=== PATIENT | male | born 1940 | race Caucasian/White ===

== ENCOUNTER 2016-06-30 12:16 | Emergency (ER) | payer MEDICARE ==
[~2016-06-30 12:16] MED LIST: ALBU2.5V13 NEB; AMIO200T2 PO; ASPI325T11 PO; BECL8.7A6 IH; CARV3.122 PO; CLOP75TA PO; FURO20TA3 PO; POTA20TA82 PO; POTA500T5 PO; POTA99TA4 PO; PRED-220 PO; PROAIR HFA8.5 GM INH; SIMV20TA3 PO; TAMS0.4C2 PO; TIOT18CA IH
--- NOTE | 2016-06-30 13:04 | EKG ---
[facility] [address] [place] [address] Test Date: 2016-06-30 Test Time: 12:59:42 Pat Name: SOFIA REAGAN Department: Room: Gender: M Chief Mate: : 1940 Requested By: RACHEL CULP Order Number: [id number] Reading MD: Kathryn Pantoja Measurements Intervals Gray Rate: 60 P: 17 IN: 216 QRS: -83 QRSD: 146 T: 108 QT: 540 QTc: 545 Interpretive Statements SINUS RHYTHM LEFT ATRIAL ABNORMALITY ABNORMAL LEFT AXIS DEVIATION NON SPECIFIC INTRAVENTRICULAR BLOCK RVH WITH REPOLARIZATION ABNORMALITY QRS(T) CONTOUR ABNORMALITY CONSISTENT WITH ANTERIOR INFARCT AGE UNDETERMINED CONSISTENT WITH INFEROLATERAL INFARCT ABNORMAL ECG Electronically Signed On 07-01-2016 9:49:55 SEXUAL ASSAULT RESPONSE COORDINATOR by Kathryn Pantoja
[2016-06-30 13:12] LABS: BASO # 0.1 x10^3/uL (0.0-0.2); BASO % 1 % (0-3); EOS % 1 % (0-3); HEMATOCRIT 34.8 % (39.0-53.0); HEMOGLOBIN 12.1 g/dL (13.0-17.5); LYMPH # 2.2 x10^3/uL (1.0-4.8); LYMPH % 23 % (24-48); MEAN CORPUSCULAR HEMOGLOBIN 32 pg (25-35); MEAN CORPUSCULAR HGB CONC 35 g/dL (31-37); MEAN CORPUSCULAR VOLUME 92 fL (79-100); MONO % 9 % (0-9); NEUT % 67 % (31-73); PLATELET COUNT 237 x10^3/uL (140-400); RED CELL DISTRIBUTION WIDTH 13.8 % (11.5-14.5); WHITE BLOOD COUNT 9.8 x10^3/uL (4.0-11.0)
[2016-06-30 13:23] LABS: CALCIUM 8.8 mg/dL (8.5-10.1); CREATININE 1.2 mg/dL (0.7-1.3); POTASSIUM 3.1 mmol/L (3.5-5.1)
[2016-06-30 13:30] LABS: ALBUMIN 3.7 g/dL (3.4-5.0); DIRECT BILIRUBIN 0.2 mg/dL (0.0-0.2); TOTAL BILIRUBIN 0.7 mg/dL (0.2-1.0); TOTAL PROTEIN 6.6 g/dL (6.4-8.2)
[2016-06-30] MEDS ORDERED: INSULIN REGULAR 100 UNIT/ML 10ML VIAL. IV ONE (13:30)
[2016-06-30 14:21] LABS: BILIRUBIN,URINE NEGATIVE (NEG); GLUCOSE,URINE NEGATIVE (NEG); NITRITE,URINE NEGATIVE (NEG); PH,URINE 7.5; PROTEIN,URINE NEGATIVE (NEG-TRACE); UROBILINOGEN,URINE 0.2 mg/dL (0.2 mg/dL)
[2016-06-30 14:32] LABS: BACTERIA,URINE 0 /HPF (0-FEW); RBC,URINE 0 /HPF (0-2); WBC,URINE 0 /HPF (0-4)
[2016-06-30] MEDS ORDERED: CONTRAST GIVEN MC PRN (15:45)
[2016-06-30] MEDS ORDERED: IOHEXOL 300 MG/ML 75 ML VIAL IV ONE (15:45)
[2016-06-30 16:34] VITALS: BP 117/75
--- NOTE | 2016-06-30 16:51 | RAD ---
Indication abdominal pain. Diarrhea. Symptoms reportedly not acute. Axial images through the abdomen and pelvis were obtained. 75 cc of Omnipaque 300 was administered. No similar imaging is available. An acute finding in either lung base is not seen. There is some pleural calcification bilaterally suggesting prior asbestos exposure. There is generalized cardiomegaly. There is a small hiatus hernia. The liver and spleen appear unremarkable. The gallbladder appears grossly normal. The pancreas appears unremarkable. There are no adrenal masses. There are small low-density masses seen associated with the kidneys most compatible with cysts. An acute finding in the abdomen is not apparent. In the pelvis there are multiple diverticula seen associated with the large bowel. These are most numerous in the colon. There is some slight stranding surrounding the colon at the junction of the descending and sigmoid colon extending over approximately a 6 cm segment. Superimposed mild diverticulitis in this area is not excluded. An underlying mass in the large bowel is not seen but if colonoscopy has not been recently performed this should be considered. A discrete abscess amenable to drainage is not seen. The prostate is moderately enlarged. There is some mild diffuse thickening of the urinary bladder wall. This suggests superimposed chronic inflammation or, somewhat more likely given findings associated with the prostate, chronic outlet obstructive process. There are degenerative changes in the lumbar spine. IMPRESSION: Moderately extensive diverticulosis. Mild superimposed diverticulitis in the left colon not excluded. If colonoscopy has not been recently performed this should be considered Renal cysts. Chronic musculoskeletal changes. Mild to moderate enlargement of the prostate. Diffuse, mild, urinary bladder thickening suggesting chronic inflammation or chronic outlet obstructive process Scattered areas of pleural calcification suggesting prior asbestos exposure
[2016-06-30] MEDS ORDERED: CIPR500T PO (17:04)
[2016-06-30] MEDS ORDERED: HYDR-2666 PO (17:04)
[2016-06-30] MEDS ORDERED: METR500T PO (17:04)
--- NOTE | 2016-06-30 17:05 | PHYS DOC ---
Past Medical History Past Medical History: CAD, CHF, COPD, Pneumonia, Stroke Additional Past Medical Histor: PACEMAKER (3 YEARS AGO), COPD, OXYGEN DURING SLEEPING (2 LITERS) Past Surgical History: Coronary Bypass Surgery, Other Additional Past Surgical Histo: PACEMAKER WITH DEFIB, (7) STENTS, SEVERAL COLONOSCOPY'S Alcohol Use: Occasionally Drug Use: None Adult General Chief Complaint Chief Complaint: ABDOMINAL PAIN HPI HPI 76-year-old male presenting to the emergency Department with intermittent diarrhea for approximately 3 days. He describes the diarrhea is watery. He has had about three bowel movements per day. It is soft. He also reports taking laxatives. He reports mild swelling of the abdomen. Otherwise he denies abdominal pain. He denies nausea vomiting fevers or chills. He denies chest pain or shortness of breath. location gi tract. duration intermittent. no specific timing. No alleviating or exacerbating factors were present. Review of Systems Review of Systems review of systems is negative for chest pain abdominal pain fevers chills or nausea. All other review systems is negative. Current Medications Current Medications Current Medications Medications (Trade) Dose Ordered Sig/Ave Start Time Stop Time Status Last Admin Dose Admin Info (Do NOT chart on this entry -- for MONITORING) 1 each PRN DAILY PRN 06/30/16 15:45 06/30/16 17:18 DC Insulin Human Regular (Novolin R Vial) 10 unit 1X ONCE 06/30/16 13:30 06/30/16 13:37 DC Iohexol (Omnipaque 300 Mg/ml) 75 ml 1X ONCE 06/30/16 15:45 06/30/16 15:46 DC 06/30/16 16:03 75 ML Allergies Allergies Allergies Coded Allergies Type Severity Reaction Last Updated Verified No Known Drug Allergies 03/06/15 No Physical Exam Physical Exam Constitutional: Well developed, well nourished, no acute distress, non-toxic appearance. HENT: Normocephalic, atraumatic, bilateral external ears normal, oropharynx moist, no oral exudates, nose normal. [] Eyes: PERRLA, EOMI, conjunctiva normal, no discharge. Neck: Normal range of motion, no tenderness, supple, no stridor. [] Cardiovascular:Heart rate regular rhythm, no murmur [] Lungs & Thorax: Bilateral breath sounds clear to auscultation Abdomen: abdomen is soft mildly distended. Not tympanic to percussion. Nontender to palpation. Negative McBurney's point. Negative Rivera sign. Skin: Warm, dry, no erythema, no rash. [] Back: No tenderness, no CVA tenderness. Extremities: No tenderness, no cyanosis, no clubbing, ROM intact, no edema. [] Neurologic: Alert and oriented X 3, normal motor function, normal sensory function, no focal deficits noted. Psychologic: Affect normal, judgement normal, mood normal. [] Current Patient Data Vital Signs Vital Signs Date Time Temp Pulse Resp B/P Pulse Ox O2 Delivery O2 Flow Rate FiO2 06/30/16 16:34 60 16 117/75 98 Room Air 06/30/16 12:28 98.0 98.0 Lab Values Laboratory Tests Test 06/30/16 12:45 06/30/16 14:04 White Blood Count 9.8x10^3/uL (4.0-11.0) Red Blood Count 3.80x10^6/uL (4.30-5.70) L Hemoglobin 12.1g/dL (13.0-17.5) L Hematocrit 34.8% (39.0-53.0) L Mean Corpuscular Volume 92fL (79-100) Mean Corpuscular Hemoglobin 32pg (25-35) Mean Corpuscular Hemoglobin Concent 35g/dL (31-37) Red Cell Distribution Width 13.8% (11.5-14.5) Platelet Count 237x10^3/uL (140-400) Neutrophils (%) (Auto) 67% (31-73) Lymphocytes (%) (Auto) 23% (24-48) L Monocytes (%) (Auto) 9% (0-9) Eosinophils (%) (Auto) 1% (0-3) Basophils (%) (Auto) 1% (0-3) Neutrophils # (Auto) 6.6x10^3uL (1.8-7.7) Lymphocytes # (Auto) 2.2x10^3/uL (1.0-4.8) Monocytes # (Auto) 0.8x10^3/uL (0.0-1.1) Eosinophils # (Auto) 0.1x10^3/uL (0.0-0.7) Basophils # (Auto) 0.1x10^3/uL (0.0-0.2) Sodium Level 131mmol/L (136-145) L Potassium Level 3.1mmol/L (3.5-5.1) L Chloride Level 93mmol/L (98-107) L Carbon Dioxide Level 27mmol/L (21-32) Anion Gap 11 (6-14) Blood Urea Nitrogen 12mg/dL (8-26) Creatinine 1.2mg/dL (0.7-1.3) Estimated GFR (Cockcroft-Gault) 59.0 Glucose Level 121mg/dL (70-99) H Calcium Level 8.8mg/dL (8.5-10.1) Total Bilirubin 0.7mg/dL (0.2-1.0) Direct Bilirubin 0.2mg/dL (0.0-0.2) Aspartate Amino Transferase (AST) 22U/L (15-37) Alanine Aminotransferase (ALT) 29U/L (16-63) Alkaline Phosphatase 64U/L (46-116) Troponin I Quantitative 0.030ng/mL (0.000-0.055) SG-Bsq-O-Type Natriuretic Peptide 3040pg/mL (0-449) H Total Protein 6.6g/dL (6.4-8.2) Albumin 3.7g/dL (3.4-5.0) Lipase 160U/L (73-393) Urine Collection Type Unknown Urine Color Yellow Urine Clarity Clear Urine pH 7.5 Urine Specific [place] 1.010 Urine Protein Negativemg/dL (NEG-TRACE) Urine Glucose (UA) Negativemg/dL (NEG) Urine Ketones (Stick) Negativemg/dL (NEG) Urine Blood Negative (NEG) Urine Nitrite Negative (NEG) Urine Bilirubin Negative (NEG) Urine Urobilinogen Dipstick 0.2mg/dL (0.2 mg/dL) Urine Leukocyte Esterase Negative (NEG) Urine RBC 0/HPF (0-2) Urine WBC 0/HPF (0-4) Urine Squamous Epithelial Cells None/LPF Urine Bacteria 0/HPF (0-FEW) Urine Hyaline Casts Many/HPF Urine Mucus Slight/LPF Laboratory Tests 06/30/16 12:45 Laboratory Tests 06/30/16 12:45 EKG EKG [] Radiology/Procedures Radiology/Procedures []CT of the abdomen and pelvis ordered Course & Med Decision Making Course & Med Decision Making Pertinent Labs and Imaging studies reviewed. (See chart for details) []76-year-old male presenting to the emergency Department with intermittent diarrhea over the past few days. On evaluation the patient's vital signs were unremarkable. Physical exam showed mild/minimal distention without any tenderness. Labs are obtained which are normal CBC with a mild anemia. Chemistry panel showed low potassium likely secondary to his diarrhea. Otherwise the patient CT of the abdomen and pelvis showed concern for possible acute diverticulitis. There were other chronic findings such as possible espestos exposure which I referred him to his primary care physician over the next 3 to 4 days for evaluation for this. He was treated with oral antibiotics and pain medication. His potassium was replaced orally over the next few days. He was to follow-up with his primary care physician within six days. Dragon Disclaimer Dragon Disclaimer This electronic medical record was generated, in whole or in part, using a voice recognition dictation system. Departure Departure Impression: Primary Impression: Diverticulitis Additional Impression: Hypokalemia Disposition: 01 HOME, SELF-CARE Condition: STABLE Referrals: DIANA ELIAS MD (PCP) Patient Instructions: Diverticulitis, [id number] Additional Instructions: Thank you for allowing us to participate in your care today. Followup with your primary care physician in 3 days if your symptoms do not improve. If you do not have a primary care provider you can ask for a list of our primary care providers. Return to the emergency department you have any new or concerning findings. This should be evaluated by the primary care physician and any necessary consulting services for continued management within a few days after discharge. Return to emergency room if you have any new or concerning symptoms including but not limited to fever, chills, nausea, vomiting, intractable pain, any new rashes, chest pain, shortness of air, uncontrolled bleeding, difficulty breathing, and/or vision loss. You may have been prescribed medication that can change in your level of thinking and ability to operate machinery. These medications include hydrocodone and Ativan. Also, Benadryl has been known to do this as well. Be sure to check with your pharmacist and ask if the medications you've prescribed can affect your level of consciousness. I recommend not operating heavy machinery or driving while on medication such as these. Scripts Potassium Chloride 10 Meq Capsule.er10 Meq PO DAILY 5 Days Prov:RACHEL CULP MD 06/30/16 Hydrocodone Bit/Acetaminophen (Hydrocodone-Apap 5-325 )1 Each Tablet1 Tab PO PRN Q6HRS PRN PAIN #15 TAB Be careful as this medication may cause you to be drowsy or tired. Do not drive on this medication. Prov:RACHEL CULP MD 06/30/16 Metronidazole (Flagyl)500 Mg Vnubtw209 Mg PO TID 10 Days Prov:RACHEL CULP MD 06/30/16 Ciprofloxacin Hcl 500 Mg Tablet1 Tab PO BID #20 TAB Prov:RACHEL CULP MD 06/30/16 Problem Qualifiers RACHEL CULP MD Jun 30, 2016 17:05
[2016-06-30] MEDS ORDERED: POTA10CA PO (17:06)
== END 2016-06-30 17:08 | disposition home or self-care (01) ==
LOC: ER 12:16
DX: K57.92 Diverticulitis of intestine, part unspecified, without perforation or abscess without bleeding (principal); E87.6 Hypokalemia; I50.9 Heart failure, unspecified; I25.10 Atherosclerotic heart disease of native coronary artery without angina pectoris; J44.9 Chronic obstructive pulmonary disease, unspecified; Z86.73 Personal history of transient ischemic attack (TIA), and cerebral infarction without residual deficits; Z95.1 Presence of aortocoronary bypass graft; Z95.5 Presence of coronary angioplasty implant and graft; Z95.810 Presence of automatic (implantable) cardiac defibrillator
CPT/HCPCS: 36415; 74177; 80048; 80076; 81001; 83690; 83880; 84484; 85027; 93005; 99285; Q9967

== ENCOUNTER 2016-08-06 19:14 | Emergency (ER) | payer MEDICARE ==
[~2016-08-06] VITALS: Ht 188 cm; Wt 79.4 kg
[~2016-08-06 19:14] MED LIST changes: -ALBU2.5V13 NEB; +ALBU2.5V14 NEB; +CIPR500T PO; +HYDR-2666 PO; +METR500T PO; +POTA10CA PO
[2016-08-06] MEDS ORDERED: HYDROCODONE/APAP 5/325MG TABLET. PO ONE (20:00)
--- NOTE | 2016-08-06 20:30 | PHYS DOC ---
Past Medical History Past Medical History: Anxiety, CAD, CHF, COPD, CVA, Pneumonia, Stroke, Other Additional Past Medical Histor: OXYGEN DURING SLEEPING (2 L) Past Surgical History: Angioplasty, Coronary Bypass Surgery, Pacemaker, Other Additional Past Surgical Histo: PACEMAKER WITH DEFIB, (7) STENTS, SEVERAL COLONOSCOPY'S,BACK,SHOULDER Alcohol Use: Occasionally Drug Use: None Adult General Chief Complaint Chief Complaint: RIB PAIN after a fall HPI HPI Patient is a 76 year old male with a history of COPD brought to the ED by his son. The patient had a fall yesterday where he slipped on gravel on his driveway. He fell onto his right side, injuring his right shoulder and the right side of his chest wall. Since then he has had a lot of pain, hurts to take a deep breath, really hurts to breathe at all, hurts to cough. He also recently has been on prednisone and antibiotics for a productive cough. He had trouble last night, couldn't get comfortable, had to sit up in the chair to sleep. He does wear oxygen and CPAP at night. PCP Dr. Ledbetter Review of Systems Review of Systems Constitutional: Denies fever or chills [] Eyes: Denies change in visual acuity, redness, or eye pain [] HENT: Denies nasal congestion or sore throat [] Respiratory: Positive for cough and shortness of breath as in history of present illness Cardiovascular: Denies cardiac sounding chest pain GI: Denies abdominal pain, nausea, vomiting, bloody stools or diarrhea [] : Denies dysuria or hematuria [] Musculoskeletal: Right shoulder pain, right chest wall pain Integument: Denies rash or skin lesions [] Neurologic: Denies headache, focal weakness or sensory changes [] Current Medications Current Medications Current Medications Medications (Trade) Dose Ordered Sig/Ave Start Time Stop Time Status Last Admin Dose Admin Acetaminophen/ Hydrocodone Bitart (Lortab 5/325) 1 tab 1X ONCE 08/06/16 20:00 08/06/16 20:01 DC 08/06/16 19:59 1 TAB Allergies Allergies Allergies Coded Allergies Type Severity Reaction Last Updated Verified No Known Drug Allergies 03/06/15 No Physical Exam Physical Exam Constitutional: Well developed, well nourished, no acute distress, non-toxic appearance. Alert, mentating normally. Pulse ox on room air 95%. Talking in full sentences without dyspnea. HENT: Normocephalic, atraumatic, bilateral external ears normal, nose normal. [] Eyes: conjunctiva normal, no discharge. [] Neck: Normal range of motion, no stridor. [] Cardiovascular:Heart rate regular rhythm, no murmur , not tachycardic Lungs & Thorax: Breath sounds decreased throughout with no wheezes, rales, or rhonchi. Right lateral chest wall tender in the mid axillary line, no bruising, no crepitance, no deformity. Skin: Warm, dry, no erythema, no rash. [] Back: No tenderness, no CVA tenderness. [] Extremities: Right shoulder has a old surgical scar anteriorly. No acute deformity, mild generalized tenderness to palpation, no point tenderness, no crepitance Neurologic: Alert and oriented X 3, normal motor function, normal sensory function, no focal deficits noted. [] Current Patient Data Vital Signs Vital Signs Date Time Temp Pulse Resp B/P Pulse Ox O2 Delivery O2 Flow Rate FiO2 08/06/16 22:30 62 25 155/80 94 Room Air 08/06/16 19:35 98.1 98.1 EKG EKG [] Radiology/Procedures Radiology/Procedures Two-view chest x-ray read by me and compared to previous two-view chest x-ray dated 07/18/2016 The inspiratory effort is not as full, there may be a small right pleural effusion, and I believe there is a fracture of the 10th rib laterally. There is also some type of a soft tissue density in the right axilla. [] Chest CT demonstrated the following: There is a displaced fracture of the lateral 5th 6th and 7th ribs and is place right fracture of the posterior right 8th rib and nondisplaced fractures of the posterior right 9th and 10th ribs. There are patchy densities along the fissure on the right which was not present previously. There is patchy ground-glass opacity in the right middle lobe. There is no mediastinal or hilar lymphadenopathy. There has been previous median sternotomy. There is a left-sided pacemaker. There is calcified pleural plaque on the left. Course & Med Decision Making Course & Med Decision Making Pertinent Labs and Imaging studies reviewed. (See chart for details) 76-year-old male who does have COPD and recently has had a productive cough, is taking prednisone and antibiotics for that, had a mechanical fall yesterday and landed on his right side. He presents with right side pain that is worse when he exited deep breath or coughs. Also concerned that this morning when he coughed he had a little streak of blood in his sputum. I advised the patient we will give him a pain pill and get a chest x-ray, he is agreeable to that plan. Chest x-ray concerns me for possible pleural effusion and possible atelectasis. Neither of these would be surprising. With his level of chronic lung disease, I' d like to know some more about his possible lung injuries so ordered a CT scan of the chest. I assumed care of this patient from Dr. Yu. His chest CT does demonstrate evidence of rib fractures and pulmonary contusion. I'll be sent him home as instructed with pain medication and incentive spirometer with close follow-up with his primary care doctor next several days and strict instruction return if he develops any worsening of his breathing or develops any fever. He is very agreeable with this plan and discharged without incident. [] Dragon Disclaimer Dragon Disclaimer This electronic medical record was generated, in whole or in part, using a voice recognition dictation system. Departure Departure Impression: Primary Impression: Right rib fracture Additional Impression: COPD exacerbation Disposition: 01 HOME, SELF-CARE Condition: STABLE Referrals: DIANA ELIAS MD (PCP) Patient Instructions: Rib Fracture, [id number] Additional Instructions: As we discussed, do not wear a rib binder or Hi wraps because it keeps you from being able to take a good deep breath. You may briefly apply a back brace or hold a pillow on your side to splint the broken ribs when you cough. Use ice to the areas of pain 15-20 minutes out of every 1-2 hours. If needed, take pain pills around the clock for pain, however this will be constipating, take a laxative also. Do not take Xanax with pain pills, they both decrease your breathing. Take breathing treatments every 4 hours to encourage coughing up phlegm and help keep your lungs open. Make an effort to take good deep breaths. If you run a fever, become more short of breath, or need better pain control, return for admission to the hospital. Scripts Hydrocodone/Apap 5-325 (Mode 5-325 Tablet)1 Each Tablet1-2 Tab PO Q4-6HRS #20 TAB As needed for pain of broken ribs Prov:ANILA YU MD 08/06/16 Problem Qualifiers ANILA YU MD Aug 06, 2016 20:30 KENDRA NICOLAS DO Aug 06, 2016 23:03
[2016-08-06] MEDS ORDERED: HYDR-971 PO (21:29)
--- NOTE | 2016-08-06 21:50 | RAD ---
PROCEDURE CT chest without contrast HISTORY Right-sided rib and back pain status post fall yesterday TECHNIQUE Axial helical images of the chest were obtained without contrast and axial coronal and sagittal reconstruction was performed. COMPARISON July 18, 2016 FINDINGS There is a displaced fracture of the lateral 5th 6th and 7th ribs and is place right fracture of the posterior right 8th rib and nondisplaced fractures of the posterior right 9th and 10th ribs. There are patchy densities along the fissure on the right which was not present previously. There is patchy ground-glass opacity in the right middle lobe. There is no mediastinal or hilar lymphadenopathy. There has been previous median sternotomy. There is a left-sided pacemaker. There is calcified pleural plaque on the left. IMPRESSION One. Multiple right-sided rib fractures. No pneumothorax. Two. Right-sided infiltrates could be discoid atelectasis or pulmonary contusion. 3. There is patchy nodular opacity along the major fissure on the right. Recommend a three-month followup CT of the chest without contrast to exclude possible pulmonary nodule. Electronically signed by: Pavan Mendez MD (Aug 06, 2016 21:49:47)
[2016-08-06 22:30] VITALS: BP 155/80
--- NOTE | 2016-08-07 08:14 | RAD ---
Chest, 2 views, 08/06/2016: History: Fall, chest pain Comparison is made to a study from 07/18/2016. There has been a previous median sternotomy. A left-sided transvenous pacemaker remains in place with 3 leads extending into the heart. The heart is enlarged. There is calcific plaquing and tortuosity of the thoracic aorta. The pulmonary vascularity is normal. There are bilateral chest opacities. Some of these have been present on previous studies and are due to fibrocalcific pleural/parenchymal scarring, predominantly on the left. There is mild superimposed acute infiltrate in the right midlung. There is minimal linear atelectasis in the left lateral costophrenic angle. There is no evidence of pneumothorax or definite pleural fluid. The bony structures are demineralized. Moderate degenerative changes are evident in the spine. At least 2 rib fractures are seen laterally on the lower right. IMPRESSION: 1. Cardiomegaly and aortic atherosclerosis. 2. Mild right mid lung infiltrates superimposed upon fibrocalcific pleural/parenchymal scarring. 3. New right lower rib fractures
== END 2016-08-06 22:30 | disposition home or self-care (01) ==
LOC: ER 19:14
DX: S22.41XA Multiple fractures of ribs, right side, initial encounter for closed fracture (principal); J44.1 Chronic obstructive pulmonary disease with (acute) exacerbation; I25.10 Atherosclerotic heart disease of native coronary artery without angina pectoris; I50.9 Heart failure, unspecified; J44.9 Chronic obstructive pulmonary disease, unspecified; Z86.73 Personal history of transient ischemic attack (TIA), and cerebral infarction without residual deficits; Z95.0 Presence of cardiac pacemaker; Z98.61 Coronary angioplasty status; W01.0XXA Fall on same level from slipping, tripping and stumbling without subsequent striking against object, initial encounter; Y93.89 Activity, other specified; Y92.89 Other specified places as the place of occurrence of the external cause; Y99.8 Other external cause status
CPT/HCPCS: 71020; 71250; 99284-25

== ENCOUNTER 2016-08-22 14:32 | Inpatient (IN) | payer MEDICARE ==
[~2016-08-22] VITALS: Ht 185.4 cm; Wt 78.1 kg
[~2016-08-22 14:32] MED LIST changes: +HYDR-971 PO
[2016-08-22] MEDS ORDERED: IPRATRPIUM/ALBUTEROL 0.5/2.5MG 3 ML NEBU. NEB ONE (15:00)
--- NOTE | 2016-08-22 15:27 | EKG ---
[facility] [address] [place] [address] Test Date: 2016-08-22 Test Time: 15:23:23 Pat Name: SOFIA REAGAN Department: Room: Gender: M Photography Sales Associate: : 1940 Requested By: KENDRA NICOLAS Order Number: [id number] Reading MD: Measurements Intervals [place] Rate: 60 P: -88 MI: 126 QRS: -82 QRSD: 168 T: 91 QT: 546 QTc: 552 Interpretive Statements SINUS RHYTHM ABNORMAL LEFT AXIS DEVIATION NON SPECIFIC INTRAVENTRICULAR BLOCK RVH WITH REPOLARIZATION ABNORMALITY QRS(T) CONTOUR ABNORMALITY CONSISTENT WITH ANTERIOR INFARCT AGE UNDETERMINED CONSISTENT WITH INFEROLATERAL INFARCT POSSIBLY RECENT RI6.01 Unconfirmed report Compared to ECG 07/18/2016 12:05:54 Left-axis deviation now present Right ventricular hypertrophy now present Early repolarization now present Myocardial infarct finding now present
[2016-08-22 15:29] LABS: BASO % 1 % (0-3); EOS % 1 % (0-3); HEMATOCRIT 34.4 % (39.0-53.0); HEMOGLOBIN 11.8 g/dL (13.0-17.5); LYMPH # 1.6 x10^3/uL (1.0-4.8); LYMPH % 20 % (24-48); MEAN CORPUSCULAR HEMOGLOBIN 32 pg (25-35); MEAN CORPUSCULAR HGB CONC 34 g/dL (31-37); MEAN CORPUSCULAR VOLUME 93 fL (79-100); MONO % 10 % (0-9); NEUT % 68 % (31-73); PLATELET COUNT 235 x10^3/uL (140-400); RED CELL DISTRIBUTION WIDTH 13.5 % (11.5-14.5); WHITE BLOOD COUNT 8.3 x10^3/uL (4.0-11.0)
--- NOTE | 2016-08-22 15:30 | RAD ---
Portable chest, 08/22/2016: History: Shortness of breath Comparison is made to a study from 08/06/2016. There as been a previous median sternotomy. A left-sided transvenous pacemaker remains in place. The heart is enlarged. There is calcific plaquing of the aorta. Bilateral chest opacities due to fibrocalcific pleural-parenchymal scarring are again noted. No new pulmonary infiltrate is seen. There is no evidence of pleural fluid. IMPRESSION: 1. Mild cardiomegaly and aortic atherosclerosis. 2. Bilateral fibrocalcific pleural/parenchymal scarring. 3. No new abnormality is detected.
[2016-08-22 15:39] LABS: CALCIUM 8.7 mg/dL (8.5-10.1); CREATININE 0.9 mg/dL (0.7-1.3); GFR 82.3; POTASSIUM 3.3 mmol/L (3.5-5.1)
[2016-08-22] MEDS ORDERED: FENTANYL PF 100 MCG/2 ML VIAL. IV ONE (16:00)
--- NOTE | 2016-08-22 16:25 | RAD ---
EXAM: Right shoulder 3 views. HISTORY: Right shoulder pain after fall. COMPARISON: 03/03/2016. FINDINGS: Osteopenia is moderate to severe. This lowers sensitivity for nondisplaced fractures but none are seen. Small osteophytes indicate mild glenohumeral osteoarthritis. Acromioclavicular osteoarthritis is moderate to severe. Ossification in the region of the coracoclavicular ligament is consistent with a chronic ligamentous injury. An inferiorly directed acromial spur measures 4 mm. Acromioclavicular spurs measure 6 mm. There are displaced right eighth and ninth rib fractures. Median sternotomy changes and pacer/defibrillator leads are partially visualized. IMPRESSION: 1. No acute fractures at the shoulder. 2. 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 3. Prominent inferiorly directed acromioclavicular spurs. Correlate for impingement. 4. Displaced right eighth and ninth rib fractures.
[2016-08-22] MEDS ORDERED: ONDANSETRON PF 4 MG/2 ML VIAL. IV PRN (17:45)
--- NOTE | 2016-08-22 18:17 | PHYS DOC ---
Past Medical History Past Medical History: Anxiety, CAD, CHF, COPD, CVA, Pneumonia, Stroke, Other Additional Past Medical Histor: OXYGEN DURING SLEEPING (2 L) Past Surgical History: Angioplasty, Coronary Bypass Surgery, Pacemaker, Other Additional Past Surgical Histo: PACEMAKER WITH DEFIB, (7) STENTS, SEVERAL COLONOSCOPY'S,BACK,SHOULDER Alcohol Use: Occasionally Drug Use: None Adult General Chief Complaint Chief Complaint: WEAKNESS/GENERALIZED HPI HPI This is a 76-year-old male who presents several weeks after after having a traumatic fall on his right side which he fractured multiple ribs. He presents again today for worsening shortness of breath and significant right shoulder pain as well. Patient is still having significant right-sided rib pain. He has been using his incentive spirometer and taking his pain medication as needed. He has followed up as well with a primary care doctor but states his symptoms have not improved significantly. He states he has pains with deep breathing and he is still short of breath despite using breathing treatments at home. Patient does have history of significant COPD but does not require oxygen. He denies any significant cough or fever. Review of Systems Review of Systems Constitutional: Denies fever or chills [] Eyes: Denies change in visual acuity, redness, or eye pain [] HENT: Denies nasal congestion or sore throat [] Respiratory: Denies cough, has shortness of breath [] Cardiovascular: No additional information not addressed in HPI [] GI: Denies abdominal pain, nausea, vomiting, bloody stools or diarrhea [] : Denies dysuria or hematuria [] Musculoskeletal: Denies back pain or joint pain [] Integument: Denies rash or skin lesions [] Neurologic: Denies headache, focal weakness or sensory changes [] Endocrine: Denies polyuria or polydipsia [] Current Medications Current Medications Current Medications Medications (Trade) Dose Ordered Sig/Ave Start Time Stop Time Status Last Admin Dose Admin Albuterol/ Ipratropium (Duoneb) 3 ml 1X ONCE 08/22/16 15:00 08/22/16 15:01 DC 08/22/16 15:12 3 ML Allergies Allergies Allergies Coded Allergies Type Severity Reaction Last Updated Verified No Known Drug Allergies 03/06/15 No Physical Exam Physical Exam Constitutional: Well developed, well nourished, no acute distress, non-toxic appearance. [] HENT: Normocephalic, atraumatic, bilateral external ears normal, oropharynx moist, no oral exudates, nose normal. [] Eyes: PERRLA, EOMI, conjunctiva normal, no discharge. [] Neck: Normal range of motion, no tenderness, supple, no stridor. [] Cardiovascular:Heart rate regular rhythm, no murmur [] Lungs & Thorax: Bilateral breath sounds clear to auscultation [] Abdomen: Bowel sounds normal, soft, no tenderness, no masses, no pulsatile masses. [] Skin: Warm, dry, no erythema, no rash. [] Back: No tenderness, no CVA tenderness. [] Extremities: No tenderness, no cyanosis, no clubbing, ROM intact, no edema. [] Neurologic: Alert and oriented X 3, normal motor function, normal sensory function, no focal deficits noted. [] Psychologic: Affect normal, judgement normal, mood normal. [] Current Patient Data Vital Signs Vital Signs Date Time Temp Pulse Resp B/P Pulse Ox O2 Delivery O2 Flow Rate FiO2 08/22/16 15:30 84 38 110/66 96 08/22/16 15:15 Room Air 08/22/16 15:05 98.3 98.3 Lab Values Laboratory Tests Test 08/22/16 15:10 White Blood Count 8.3x10^3/uL (4.0-11.0) Red Blood Count 3.70x10^6/uL (4.30-5.70) L Hemoglobin 11.8g/dL (13.0-17.5) L Hematocrit 34.4% (39.0-53.0) L Mean Corpuscular Volume 93fL (79-100) Mean Corpuscular Hemoglobin 32pg (25-35) Mean Corpuscular Hemoglobin Concent 34g/dL (31-37) Red Cell Distribution Width 13.5% (11.5-14.5) Platelet Count 235x10^3/uL (140-400) Neutrophils (%) (Auto) 68% (31-73) Lymphocytes (%) (Auto) 20% (24-48) L Monocytes (%) (Auto) 10% (0-9) H Eosinophils (%) (Auto) 1% (0-3) Basophils (%) (Auto) 1% (0-3) Neutrophils # (Auto) 5.7x10^3uL (1.8-7.7) Lymphocytes # (Auto) 1.6x10^3/uL (1.0-4.8) Monocytes # (Auto) 0.8x10^3/uL (0.0-1.1) Eosinophils # (Auto) 0.1x10^3/uL (0.0-0.7) Basophils # (Auto) 0.0x10^3/uL (0.0-0.2) Sodium Level 127mmol/L (136-145) L Potassium Level 3.3mmol/L (3.5-5.1) L Chloride Level 86mmol/L (98-107) L Carbon Dioxide Level 32mmol/L (21-32) Anion Gap 9 (6-14) Blood Urea Nitrogen 13mg/dL (8-26) Creatinine 0.9mg/dL (0.7-1.3) Estimated GFR (Cockcroft-Gault) 82.3 Glucose Level 105mg/dL (70-99) H Calcium Level 8.7mg/dL (8.5-10.1) Troponin I Quantitative 0.030ng/mL (0.000-0.055) Laboratory Tests 08/22/16 15:10 Laboratory Tests 08/22/16 15:10 EKG EKG [] Radiology/Procedures Radiology/Procedures Right shoulder xray revealed the followin. No acute fractures at the shoulder. 2. 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 3. Prominent inferiorly directed acromioclavicular spurs. Correlate for impingement. 4. Displaced right eighth and ninth rib fractures. Chest xray reveals the following: Comparison is made to a study from 08/06/2016. There as been a previous median sternotomy. A left-sided transvenous pacemaker remains in place. The heart is enlarged. There is calcific plaquing of the aorta. Bilateral chest opacities due to fibrocalcific pleural-parenchymal scarring are again noted. No new pulmonary infiltrate is seen. There is no evidence of pleural fluid. Course & Med Decision Making Course & Med Decision Making Pertinent Labs and Imaging studies reviewed. (See chart for details) This 76-year-old male who significantly short of breath after having a troponin fall several weeks ago will be admitted to the hospital for likely COPD exacerbation and ongoing complications from his traumatic injuries. His chest film and right shoulder film did not reveal any new abnormalities today. His laboratory workup was unremarkable. He was given a breathing treatment and steroids on the department. I discussed the need to admit the patient with the hospitalist, Dr. Wright, who agreed to accept the patient with Dr. Moran is a consult as well. He was admitted without incident. Dragon Disclaimer Dragon Disclaimer This electronic medical record was generated, in whole or in part, using a voice recognition dictation system. Departure Departure Impression: Primary Impression: Right rib fracture Additional Impression: COPD exacerbation Disposition: ADMITTED INPATIENT Admitting Physician: Other Condition: STABLE Referrals: DIANA WRIGHT MD (PCP) Problem Qualifiers KENDRA NICOLAS DO Aug 22, 2016 18:17
[2016-08-22 18:25] VITALS: BP 119/67
[2016-08-22 18:26] VITALS: BP 119/67
[2016-08-22] MEDS ORDERED: methylPREDNISolone SOD SUCC PF 125 MG/2 ML VIAL. IV ONE (18:30)
[2016-08-22 19:00] VITALS: BP 115/67
[2016-08-22] MEDS: IPRATRPIUM/ALBUTEROL 0.5/2.5MG 3 ML NEBU. NEB SCH (19:55)
[2016-08-22] MEDS: HYDROCODONE/APAP 5/325MG TABLET. PO PRN (21:05)
[2016-08-22] MEDS: CARVEDILOL 3.125 MG TABLET PO SCH (21:18)
[2016-08-22] MEDS: SIMVASTATIN 20 MG TABLET PO SCH (22:43)
[2016-08-22 23:00] VITALS: BP 101/56
[2016-08-23 03:00] VITALS: BP 102/60
[2016-08-23 05:36] LABS: BASO % 0 % (0-3); EOS % 0 % (0-3); HEMATOCRIT 33.7 % (39.0-53.0); LYMPH # 0.5 x10^3/uL (1.0-4.8); LYMPH % 11 % (24-48); MEAN CORPUSCULAR HEMOGLOBIN 32 pg (25-35); MEAN CORPUSCULAR HGB CONC 36 g/dL (31-37); MEAN CORPUSCULAR VOLUME 90 fL (79-100); MONO % 1 % (0-9); NEUT % 88 % (31-73); PLATELET COUNT 233 x10^3/uL (140-400); RED BLOOD COUNT 3.75 x10^6/uL (4.30-5.70); RED CELL DISTRIBUTION WIDTH 13.6 % (11.5-14.5); WHITE BLOOD COUNT 4.7 x10^3/uL (4.0-11.0)
[2016-08-23] MEDS: CLOPIDOGREL BISULFATE 75 MG TABLET PO SCH (05:36)
[2016-08-23 05:52] LABS: CALCIUM 8.8 mg/dL (8.5-10.1); CREATININE 1.1 mg/dL (0.7-1.3); GFR 65.3
[2016-08-23 05:54] LABS: POTASSIUM 2.7 mmol/L (3.5-5.1)
[2016-08-23 07:00] VITALS: BP 118/75
[2016-08-23] MEDS: IPRATRPIUM/ALBUTEROL 0.5/2.5MG 3 ML NEBU. NEB SCH ×4 (07:39→20:34)
[2016-08-23] MEDS: TAMSULOSIN 0.4 MG CAP.ER.24H. PO SCH (08:09)
[2016-08-23] MEDS: FUROSEMIDE 20 MG TABLET PO SCH (08:09)
[2016-08-23] MEDS: ASPIRIN ENTERIC COATED 325 MG TABLET.DR. PO SCH (08:10)
[2016-08-23] MEDS: AMIODARONE HCL 200 MG TABLET PO SCH (08:10)
[2016-08-23] MEDS: POTASSIUM CHLORIDE 20 MEQ TABLET.ER. PO SCH ×3 (08:10→17:29)
[2016-08-23] MEDS: CARVEDILOL 3.125 MG TABLET PO SCH ×2 (08:10→17:29)
[2016-08-23] MEDS ORDERED: NON FORMULARY ITEM (Tiotropium Bromide (Spiriva) 2 INH) IH SCH (09:00)
[2016-08-23 10:05] LABS: PLT ESTIMATE ADEQUATE (ADEQUATE)
[2016-08-23 11:00] VITALS: BP 96/59
--- NOTE | 2016-08-23 11:01 | ACF ---
Admission Forms Criteria COPD Clinical Indications for Admission to Inpatient Care (Place 'X' for any and all applicable criteria): Admission is indicated for ANY ONE of the following (1)(2)(3): [X]I. Acute exacerbation by high-risk comorbidity (e.g., pneumonia, dysrhythmia, heart failure, pleural effusion, pneumothorax) or severe underlying COPD (e.g., steroid dependent) [ ]II. Inpatient admission required rather than observation care (see Chronic Obstructive Pulmonary Disease: Observation Care) because of ANY ONE of the following: [ ]a) New or pre-existing signs or symptoms of COPD (eg, dyspnea or Tachypnea at rest or with minimal activity) that persist despite outpatient and observation care treatment [ ]b) New-onset hypoxemia (room air SaO2 less than 90%, PO2 less than 60 mm Hg (8.0 kPa)) that persists despite outpatient and observation care treatment [ ]c) Worsening of pre-existing hypoxemia (eg, new or increased requirement for supplemental oxygen to maintain oxygenation at baseline level) that persists despite outpatient and observation care treatment, with oxygen treatment needs performable only in acute inpatient setting [ ]d) Hypercarbia (PCO2 greater than 40 mm Hg (5.3 kPa))-induced respiratory acidosis (pH less than 7.35) that persists despite outpatient and observation care treatment [ ]e) Supplemental oxygen or respiratory treatments for over 24 hours that are performable only in acute inpatient setting [ ]f) Chest tube placement with active evacuation (e.g., suction, drainage) (5) [ ]g) Other condition, treatment or monitoring requiring inpatient admission [ ]III. Planned invasive surgical or diagnostic procedures requiring acute- care hospitalization [ ]IV. Acute respiratory failure (e.g., uncompensated hypercarbia, severe hypoxemia) [ ]V. Severe comorbid condition (e.g., severe steroid myopathy, acute vertebral fracture) that has acutely worsened pulmonary function [ ]. Confusion state, lethargy, obtundation, stupor or coma Extended stay beyond goal length of stay may be needed for (31)(32): [ ]a ) Respiratory Failure. [ ]b) Severe or persisting hypoxemia or hypercarbia [ ]c) Severe or persistent dyspnea [ ]d) Comorbidities (e.g. chronic heart failure, atrial fibrillation with rapid response, pneumonia) [ ]e) Malnutrition The original [facility] content created by [facility] has been revised. The portions of the content which have been revised are identified through the use of italic text or in bold, and [facility] has neither reviewed nor approved the modified material. All other unmodified content is copyright [facility]. Please see references footnoted in the original [facility] edition 2016 Admission Criteria Met?: Yes KYLEIGH WAHL Aug 23, 2016 11:01
--- NOTE | 2016-08-23 13:36 | PDOC2 ---
CONSULT Date of Consult Date of Consult DATE: 08/23/16 TIME: 13:29 Reason for Consult Reason for Consult: Coronary artery disease Referring Physician Referring Physician: Dr. Wright Identification/Chief Complaint Chief Complaint A fall History of Present Illness Reason for Visit: This patient is a 76-year-old gentleman with a known history of coronary artery disease, and ischemic cardiomyopathy, COPD, that continues to smoke. He had a recent fall sustaining injury to the right shoulder as well as multiple rib fractures. He now comes in with further pain to the shoulder and a limited range of motion to that side as well as significant dyspnea and pain when he tries to take a deep breath. He has had previous episodes of CHF but at this time has no cardiac complaints, no edema, no angina, no palpitations. The patient has a pacemaker in place. Past Medical History Cardiovascular: CAD, CHF, HTN, [place], Other Pulmonary: COPD CENTRAL NERVOUS SYSTEM: CVA, TIA Psych: Anxiety, Depression Musculoskeletal: Osteoarthritis Renal/: Benign prostatic enlarg. Past Surgical History Past Surgical History: Pacemaker, CABG, Other Family History Family History: Cancer, Coronary Artery Disease Social History ALCOHOL: occassional Drugs: None Lives: Alone Domestic Violence: Neg Current Problem List Problem List Problems Medical Problems: (1) COPD exacerbation Status: Acute (2) Right rib fracture Status: Acute Current Medications Current Medications Current Medications Albuterol/ Ipratropium (Duoneb) 3 ml 1X ONCE NEB Last administered on 15:12; Start 08/22/16 at 15:00; Stop 08/22/16 at 15:01; Status DC Fentanyl Citrate (Fentanyl 2ml Vial) 50 mcg 1X ONCE IV Last administered on 16:00; Start 08/22/16 at 16:00; Stop 08/22/16 at 16:01; Status DC Ondansetron HCl (Zofran) 4 mg PRN Q8HRS PRN IV NAUSEA/VOMITING; Start 08/22/16 at 17:45; Stop 08/23/16 at 17:44 Albuterol/ Ipratropium (Duoneb) 3 ml RTQID NEB Last administered on 08/23/16 11:25; Start 08/22/16 at 20:00 Methylprednisolone Sodium Succinate (Solu-Medrol 125mg Vial) 125 mg 1X ONCE IV Last administered on 08/22/16 18:32; Start 08/22/16 at 18:30; Stop 08/22/16 at 18:31; Status DC Amiodarone HCl (Cordarone) 200 mg DAILY PO Last administered on 08/23/16 08:10 ; Start 08/23/16 at 09:00 Aspirin (Ecotrin) 325 mg DAILY08 PO Last administered on 08/23/16 08:10; Start 08/23/16 at 08:00 Carvedilol (Coreg) 3.125 mg BIDWMEALS PO Last administered on 08/23/16 08:10; Start 08/22/16 at 21:18 Clopidogrel Bisulfate (Plavix) 75 mg DAILY07 PO Last administered on 08/23/16 05:36; Start 08/23/16 at 07:00 Furosemide (Lasix) 20 mg DAILY PO Last administered on 08/23/16 08:09; Start 08/23/16 at 09:00 Acetaminophen/ Hydrocodone Bitart (Lortab 5/325) 1 tab PRN Q6HRS PRN PO PAIN MILD TO MOD Last administered on 08/22/16 21:05; Start 08/22/16 at 20:30 Simvastatin (Zocor) 20 mg QHS PO Last administered on 08/22/16 22:43; Start at 21:00 Tamsulosin HCl (Flomax) 0.4 mg DAILY PO Last administered on 08/23/16 08:09; Start 08/23/16 at 09:00 Non-Formulary Medication 2 inh DAILY IH ; Start 08/23/16 at 09:00; Status UNV Potassium Chloride (Klor-Con) 20 meq TIDWMEALS PO Last administered on 12:00; Start 08/23/16 at 08:00 Active Scripts Active [place] 5-325 Tablet (Acetaminophen/Hydrocodone Bitart) 1 Each Tablet 1-2 Tab PO Q4-6HRS As needed for pain of broken ribs Hydrocodone-Apap 5-325 (Hydrocodone Bit/Acetaminophen) 1 Each Tablet 1 Tab PO PRN Q6HRS PRN Be careful as this medication may cause you to be drowsy or tired. Do not drive on this medication. Reported Prednisone 10 Mg Tablet 10 Mg PO DAILY Furosemide 20 Mg Tablet 1 Tab PO DAILY Tamsulosin Hcl 0.4 Mg Cap.er.24h 1 Cap PO DAILY Simvastatin 20 Mg Tablet 1 Tab PO QHS Next dose due: 08/11/15 @ 9 PM Clopidogrel (Clopidogrel Bisulfate) 75 Mg Tablet 1 Tab PO DAILY Next dose due: 08/12/15 @ 8 AM Aspirin Ec (Aspirin) 325 Mg Tablet.dr 1 Tab PO DAILY Next dose due: 08/12/15 @ 8 AM (take with breakfast) Spiriva (Tiotropium [place]) 18 Mcg Cap.w.dev 2 Inh IH DAILY Amiodarone Hcl 200 Mg Tablet 200 Mg PO DAILY Next dose due: 08/12/15 @ 9 AM Carvedilol 3.125 Mg Tablet 3.125 Mg PO BIDWMEALS Next dose due: 08/11/15 @ 5 PM (take with supper) Allergies Allergies: Coded Allergies: No Known Drug Allergies (Unverified , 03/06/15) Physical Exam Physical Exam The patient was complaining of discomforts to the right shoulder at the time of the examination. H EENT pupils are reactive. Oral mucosa well-hydrated. Neck is supple no JVD. Lungs breath sounds are decreased, no wheezing at this time, no Rales. Heart regular rate and rhythm, S1-S2, 1 to 2/6 systolic murmur. Abdomen is soft bowel sounds are present. Extremities 1+ edema. There is tenderness over the right shoulder with limited range of motion of the right arm and there are ecchymosis from the right side of the chest down to the abdomen and over to the front almost to the groin. Neurological exam was grossly intact. Vitals VITALS Vital Signs Date Time Temp Pulse Resp B/P Pulse Ox O2 Delivery O2 Flow Rate FiO2 08/23/16 11:26 Room Air 08/23/16 11:00 97.6 59 18 96/59 93 97.6 Labs Labs Laboratory Tests Test 08/22/16 15:10 08/23/16 04:30 08/23/16 04:50 White Blood Count 8.3x10^3/uL (4.0-11.0) 4.7x10^3/uL (4.0-11.0) Red Blood Count 3.70x10^6/uL (4.30-5.70) 3.75x10^6/uL (4.30-5.70) Hemoglobin 11.8g/dL (13.0-17.5) 12.0g/dL (13.0-17.5) Hematocrit 34.4% (39.0-53.0) 33.7% (39.0-53.0) Mean Corpuscular Volume 93fL (79-100) 90fL (79-100) Mean Corpuscular Hemoglobin 32pg (25-35) 32pg (25-35) Mean Corpuscular Hemoglobin Concent 34g/dL (31-37) 36g/dL (31-37) Red Cell Distribution Width 13.5% (11.5-14.5) 13.6% (11.5-14.5) Platelet Count 235x10^3/uL (140-400) 233x10^3/uL (140-400) Neutrophils (%) (Auto) 68% (31-73) 88% (31-73) Lymphocytes (%) (Auto) 20% (24-48) 11% (24-48) Monocytes (%) (Auto) 10% (0-9) 1% (0-9) Eosinophils (%) (Auto) 1% (0-3) 0% (0-3) Basophils (%) (Auto) 1% (0-3) 0% (0-3) Neutrophils # (Auto) 5.7x10^3uL (1.8-7.7) 4.1x10^3uL (1.8-7.7) Lymphocytes # (Auto) 1.6x10^3/uL (1.0-4.8) 0.5x10^3/uL (1.0-4.8) Monocytes # (Auto) 0.8x10^3/uL (0.0-1.1) 0.1x10^3/uL (0.0-1.1) Eosinophils # (Auto) 0.1x10^3/uL (0.0-0.7) 0.0x10^3/uL (0.0-0.7) Basophils # (Auto) 0.0x10^3/uL (0.0-0.2) 0.0x10^3/uL (0.0-0.2) Sodium Level 127mmol/L (136-145) 126mmol/L (136-145) Potassium Level 3.3mmol/L (3.5-5.1) 2.7mmol/L (3.5-5.1) Chloride Level 86mmol/L (98-107) 86mmol/L (98-107) Carbon Dioxide Level 32mmol/L (21-32) 31mmol/L (21-32) Anion Gap 9 (6-14) 9 (6-14) Blood Urea Nitrogen 13mg/dL (8-26) 12mg/dL (8-26) Creatinine 0.9mg/dL (0.7-1.3) 1.1mg/dL (0.7-1.3) Estimated GFR (Cockcroft-Gault) 82.3 65.3 Glucose Level 105mg/dL (70-99) 206mg/dL (70-99) Calcium Level 8.7mg/dL (8.5-10.1) 8.8mg/dL (8.5-10.1) Troponin I Quantitative 0.030ng/mL (0.000-0.055) Segmented Neutrophils % 88% (35-66) Band Neutrophils % 3% (0-9) Lymphocytes % 8% (24-48) Monocytes % 1% (0-10) Platelet Estimate Adequate (ADEQUATE) Laboratory Tests Test 08/22/16 15:10 08/23/16 04:30 08/23/16 04:50 White Blood Count 8.3x10^3/uL (4.0-11.0) 4.7x10^3/uL (4.0-11.0) Red Blood Count 3.70x10^6/uL (4.30-5.70) 3.75x10^6/uL (4.30-5.70) Hemoglobin 11.8g/dL (13.0-17.5) 12.0g/dL (13.0-17.5) Hematocrit 34.4% (39.0-53.0) 33.7% (39.0-53.0) Mean Corpuscular Volume 93fL (79-100) 90fL (79-100) Mean Corpuscular Hemoglobin 32pg (25-35) 32pg (25-35) Mean Corpuscular Hemoglobin Concent 34g/dL (31-37) 36g/dL (31-37) Red Cell Distribution Width 13.5% (11.5-14.5) 13.6% (11.5-14.5) Platelet Count 235x10^3/uL (140-400) 233x10^3/uL (140-400) Neutrophils (%) (Auto) 68% (31-73) 88% (31-73) Lymphocytes (%) (Auto) 20% (24-48) 11% (24-48) Monocytes (%) (Auto) 10% (0-9) 1% (0-9) Eosinophils (%) (Auto) 1% (0-3) 0% (0-3) Basophils (%) (Auto) 1% (0-3) 0% (0-3) Neutrophils # (Auto) 5.7x10^3uL (1.8-7.7) 4.1x10^3uL (1.8-7.7) Lymphocytes # (Auto) 1.6x10^3/uL (1.0-4.8) 0.5x10^3/uL (1.0-4.8) Monocytes # (Auto) 0.8x10^3/uL (0.0-1.1) 0.1x10^3/uL (0.0-1.1) Eosinophils # (Auto) 0.1x10^3/uL (0.0-0.7) 0.0x10^3/uL (0.0-0.7) Basophils # (Auto) 0.0x10^3/uL (0.0-0.2) 0.0x10^3/uL (0.0-0.2) Sodium Level 127mmol/L (136-145) 126mmol/L (136-145) Potassium Level 3.3mmol/L (3.5-5.1) 2.7mmol/L (3.5-5.1) Chloride Level 86mmol/L (98-107) 86mmol/L (98-107) Carbon Dioxide Level 32mmol/L (21-32) 31mmol/L (21-32) Anion Gap 9 (6-14) 9 (6-14) Blood Urea Nitrogen 13mg/dL (8-26) 12mg/dL (8-26) Creatinine 0.9mg/dL (0.7-1.3) 1.1mg/dL (0.7-1.3) Estimated GFR (Cockcroft-Gault) 82.3 65.3 Glucose Level 105mg/dL (70-99) 206mg/dL (70-99) Calcium Level 8.7mg/dL (8.5-10.1) 8.8mg/dL (8.5-10.1) Troponin I Quantitative 0.030ng/mL (0.000-0.055) Segmented Neutrophils % 88% (35-66) Band Neutrophils % 3% (0-9) Lymphocytes % 8% (24-48) Monocytes % 1% (0-10) Platelet Estimate Adequate (ADEQUATE) Assessment/Plan Assessment/Plan This patient with a known history of coronary artery disease, a previous CVA, COPD and an ischemic cardiomyopathy comes in following a fall in which he sustained injury to the right shoulder as well as rib fractures. At this time he appears to be compensated cardiac-mckeon and I agree with the present plan. Thank you very much for asking me to participate in the care of this patient. CRISTIAN REED MD Aug 23, 2016 13:36
[2016-08-23] MEDS: HYDROCODONE/APAP 5/325MG TABLET. PO PRN (14:53)
[2016-08-23 15:25] VITALS: BP 110/58
[2016-08-23] MEDS: HYDROCODONE/APAP 7.5/325MG TABLET. PO PRN ×2 (18:26→22:36)
[2016-08-23 19:41] VITALS: BP 98/58
[2016-08-23] MEDS: SIMVASTATIN 20 MG TABLET PO SCH (20:33)
--- NOTE | 2016-08-23 21:46 | PDOC ---
GENERAL General: see dictated H&P. Problems: VITAL SIGNS Vital Signs: Vital Signs Date Time Temp Pulse Resp B/P Pulse Ox O2 Delivery O2 Flow Rate FiO2 08/23/16 20:35 Room Air 08/23/16 19:41 98.2 63 20 98/58 95 98.2 I & O I & O Intake and Output 08/23/16 07:00 Intake Total 1200 ml Output Total 1650 ml Balance -450 ml Intake Oral 1200 ml Output Urine Total 1650 ml # Voids 2 ALLERGIES Allergies: Allergies Coded Allergies Type Severity Reaction Last Updated Verified No Known Drug Allergies 03/06/15 No MEDS Medications: Current Medications Medications (Trade) Dose Ordered Sig/Ave Start Time Stop Time Status Last Admin Dose Admin Acetaminophen/ Hydrocodone Bitart (Lortab 5/325) 1 tab PRN Q6HRS PRN 08/22/16 20:30 08/23/16 17:42 DC 08/23/16 14:53 1 TAB Acetaminophen/ Hydrocodone Bitart (Lortab 7.5/325) 1 tab PRN Q4HRS PRN 08/23/16 17:45 08/23/16 18:26 1 TAB Albuterol/ Ipratropium (Duoneb) 3 ml RTQID 08/22/16 20:00 08/23/16 20:34 3 ML Amiodarone HCl (Cordarone) 200 mg DAILY 08/23/16 09:00 08/23/16 08:10 200 MG Aspirin (Ecotrin) 325 mg DAILY08 08/23/16 08:00 08/23/16 08:10 325 MG Carvedilol (Coreg) 3.125 mg BIDWMEALS 08/22/16 21:18 08/23/16 17:29 3.125 MG Clopidogrel Bisulfate (Plavix) 75 mg DAILY07 08/23/16 07:00 08/23/16 05:36 75 MG Fentanyl Citrate (Fentanyl 2ml Vial) 50 mcg 1X ONCE 08/22/16 16:00 08/22/16 16:01 DC 08/22/16 16:00 50 MCG Furosemide (Lasix) 20 mg DAILY 08/23/16 09:00 08/23/16 08:09 20 MG Methylprednisolone Sodium Succinate (Solu-Medrol 125mg Vial) 125 mg 1X ONCE 08/22/16 18:30 08/22/16 18:31 DC 08/22/16 18:32 125 MG Non-Formulary Medication 2 inh DAILY 08/23/16 09:00 UNV Ondansetron HCl (Zofran) 4 mg PRN Q8HRS PRN 08/22/16 17:45 08/23/16 17:44 DC Potassium Chloride (Klor-Con) 20 meq TIDWMEALS 08/23/16 08:00 08/23/16 17:29 20 MEQ Simvastatin (Zocor) 20 mg QHS 08/22/16 21:00 08/23/16 20:33 20 MG Tamsulosin HCl (Flomax) 0.4 mg DAILY 08/23/16 09:00 08/23/16 08:09 0.4 MG LAB Lab: Laboratory Tests Test 08/23/16 04:30 08/23/16 04:50 White Blood Count 4.7x10^3/uL (4.0-11.0) Red Blood Count 3.75x10^6/uL (4.30-5.70) Hemoglobin 12.0g/dL (13.0-17.5) Hematocrit 33.7% (39.0-53.0) Mean Corpuscular Volume 90fL (79-100) Mean Corpuscular Hemoglobin 32pg (25-35) Mean Corpuscular Hemoglobin Concent 36g/dL (31-37) Red Cell Distribution Width 13.6% (11.5-14.5) Platelet Count 233x10^3/uL (140-400) Neutrophils (%) (Auto) 88% (31-73) Lymphocytes (%) (Auto) 11% (24-48) Monocytes (%) (Auto) 1% (0-9) Eosinophils (%) (Auto) 0% (0-3) Basophils (%) (Auto) 0% (0-3) Neutrophils # (Auto) 4.1x10^3uL (1.8-7.7) Lymphocytes # (Auto) 0.5x10^3/uL (1.0-4.8) Monocytes # (Auto) 0.1x10^3/uL (0.0-1.1) Eosinophils # (Auto) 0.0x10^3/uL (0.0-0.7) Basophils # (Auto) 0.0x10^3/uL (0.0-0.2) Segmented Neutrophils % 88% (35-66) Band Neutrophils % 3% (0-9) Lymphocytes % 8% (24-48) Monocytes % 1% (0-10) Platelet Estimate Adequate (ADEQUATE) Sodium Level 126mmol/L (136-145) Potassium Level 2.7mmol/L (3.5-5.1) Chloride Level 86mmol/L (98-107) Carbon Dioxide Level 31mmol/L (21-32) Anion Gap 9 (6-14) Blood Urea Nitrogen 12mg/dL (8-26) Creatinine 1.1mg/dL (0.7-1.3) Estimated GFR (Cockcroft-Gault) 65.3 Glucose Level 206mg/dL (70-99) Calcium Level 8.8mg/dL (8.5-10.1) GUNNAR BENTLEY MD Aug 23, 2016 21:46
[2016-08-23 23:05] VITALS: BP 112/59
--- NOTE | 2016-08-23 23:09 | HP ---
ADMIT DATE: 08/22/2016 CHIEF COMPLAINT AND HISTORY OF PRESENT ILLNESS: This 76-year-old white male who is known to me from prior hospital followup. He is ____ patient of Dr. Conrad Wright. He presented to the Emergency Room 2-3 weeks after a fall at home where he was moving some stuff in the garage and fell landing on his right side fracturing several ribs. He had actually started to think the ribs were improving somewhat, but the shoulder pain had gotten much worse with limited use of the same and troubles doing his activities of daily living and it is also hurting to breathe and more short of breath, presented to the Emergency Room where he had negative films of his shoulder for any fracture, but it was felt with the shortness of breath and troubles doing activities of daily living that he should be admitted and this was accomplished. PAST MEDICAL HISTORY: Remarkable for severe ischemic cardiomyopathy. He has a history of anxiety, coronary artery disease, congestive heart failure, COPD, CVA, pneumonia, uses oxygen while sleeping. PAST SURGICAL HISTORY: He has had prior angioplasty, stents x 7. He has a pacemaker. He has had coronary bypass surgery. He has had several colonoscopies as well as back and shoulder surgery. MEDICATIONS: Brought with the patient, listed on the computer and have been addressed. ALLERGIES: He has no known drug allergies. SOCIAL HISTORY: Continues to smoke. Drinks occasionally. Does not use drugs. FAMILY HISTORY: Noncontributory. REVIEW OF SYSTEMS: As mentioned above. PHYSICAL EXAMINATION: GENERAL: He is a well-developed, well-nourished, pleasant white male who is uncomfortable with any sort of motion. HEAD, EYES, EARS, NOSE AND THROAT: Essentially unremarkable. NECK: Supple, without ____ thyromegaly. CHEST: Reveals decreased breath sounds, but clear. HEART: Regular rate and rhythm with grade 1/2 systolic murmur. ABDOMEN: Soft, nontender, without hepatosplenomegaly or masses. EXTREMITIES: Without cyanosis, clubbing. No significant edema. He, however, has very limited range of motion of the right shoulder on testing. He has bruised over the shoulder, chest, abdominal area laterally on the right. NEUROLOGIC: He is intact. IMPRESSION: Fall with fractured ribs, right shoulder pain, shortness of breath, electrolyte abnormalities with hyponatremia and hypokalemia as well as suspected chronic obstructive pulmonary disease exacerbation. PLAN: The patient has been admitted. Cardiology has been consulted and I am also going to ask Ortho to see him in addition, home meds as well as breathing treatments will be continued and the patient will be monitored, managed and treated appropriately. GUNNAR BENTLEY MD DR: CHAN/santosh JOB#: [id number] / [id number]
[2016-08-24] MEDS: CLOPIDOGREL BISULFATE 75 MG TABLET PO SCH (05:58)
[2016-08-24] MEDS: HYDROCODONE/APAP 7.5/325MG TABLET. PO PRN ×3 (06:23→20:50)
[2016-08-24 07:00] VITALS: BP 129/68
[2016-08-24] MEDS: IPRATRPIUM/ALBUTEROL 0.5/2.5MG 3 ML NEBU. NEB SCH ×4 (07:57→19:13)
[2016-08-24] MEDS: ASPIRIN ENTERIC COATED 325 MG TABLET.DR. PO SCH (08:34)
[2016-08-24] MEDS: POTASSIUM CHLORIDE 20 MEQ TABLET.ER. PO SCH ×3 (08:34→17:42)
[2016-08-24] MEDS: FUROSEMIDE 20 MG TABLET PO SCH (08:35)
[2016-08-24] MEDS: AMIODARONE HCL 200 MG TABLET PO SCH (08:35)
[2016-08-24] MEDS: TAMSULOSIN 0.4 MG CAP.ER.24H. PO SCH (08:35)
[2016-08-24] MEDS: CARVEDILOL 3.125 MG TABLET PO SCH ×2 (08:35→17:00)
--- NOTE | 2016-08-24 10:55 | PDOC ---
GENERAL General: vss and afebrile. awake and alert. continued shoulder and rib pain and awaiting ortho input for shoulder. felt much better at home with digoxin and same restarted. likely home am. Problems: VITAL SIGNS Vital Signs: Vital Signs Date Time Temp Pulse Resp B/P Pulse Ox O2 Delivery O2 Flow Rate FiO2 08/24/16 08:35 60 112/59 08/24/16 07:57 99 Nasal Cannula 2.0 08/24/16 07:00 97.5 20 97.5 I & O I & O Intake and Output 08/24/16 07:00 Intake Total 1480 ml Output Total 500 ml Balance 980 ml Intake Oral 1480 ml Output Urine Total 500 ml # Voids 2 ALLERGIES Allergies: Allergies Coded Allergies Type Severity Reaction Last Updated Verified No Known Drug Allergies 03/06/15 No MEDS Medications: Current Medications Medications (Trade) Dose Ordered Sig/Ave Start Time Stop Time Status Last Admin Dose Admin Acetaminophen/ Hydrocodone Bitart (Lortab 5/325) 1 tab PRN Q6HRS PRN 08/22/16 20:30 08/23/16 17:42 DC 08/23/16 14:53 1 TAB Acetaminophen/ Hydrocodone Bitart (Lortab 7.5/325) 1 tab PRN Q4HRS PRN 08/23/16 17:45 08/24/16 06:23 1 TAB Albuterol/ Ipratropium (Duoneb) 3 ml RTQID 08/22/16 20:00 08/24/16 07:57 3 ML Amiodarone HCl (Cordarone) 200 mg DAILY 08/23/16 09:00 08/24/16 08:35 200 MG Aspirin (Ecotrin) 325 mg DAILY08 08/23/16 08:00 08/24/16 08:34 325 MG Carvedilol (Coreg) 3.125 mg BIDWMEALS 08/22/16 21:18 08/24/16 08:35 3.125 MG Clopidogrel Bisulfate (Plavix) 75 mg DAILY07 08/23/16 07:00 08/24/16 05:58 75 MG Fentanyl Citrate (Fentanyl 2ml Vial) 50 mcg 1X ONCE 08/22/16 16:00 08/22/16 16:01 DC 08/22/16 16:00 50 MCG Furosemide (Lasix) 20 mg DAILY 08/23/16 09:00 08/24/16 08:35 20 MG Methylprednisolone Sodium Succinate (Solu-Medrol 125mg Vial) 125 mg 1X ONCE 08/22/16 18:30 08/22/16 18:31 DC 08/22/16 18:32 125 MG Non-Formulary Medication 2 inh DAILY 08/23/16 09:00 UNV Ondansetron HCl (Zofran) 4 mg PRN Q8HRS PRN 08/22/16 17:45 08/23/16 17:44 DC Potassium Chloride (Klor-Con) 20 meq TIDWMEALS 08/23/16 08:00 08/24/16 08:34 20 MEQ Simvastatin (Zocor) 20 mg QHS 08/22/16 21:00 08/23/16 20:33 20 MG Tamsulosin HCl (Flomax) 0.4 mg DAILY 08/23/16 09:00 08/24/16 08:35 0.4 MG GUNNAR BENTLEY MD Aug 24, 2016 10:55
[2016-08-24 11:00] VITALS: BP 104/56
[2016-08-24] MEDS: DIGOXIN 125 MCG TABLET PO SCH (11:47)
[2016-08-24] MEDS: CYCLOBENZAPRINE 10 MG TABLET. PO PRN (12:49)
[2016-08-24 15:00] VITALS: BP 114/65
[2016-08-24 19:50] VITALS: BP 120/71
[2016-08-24] MEDS: SIMVASTATIN 20 MG TABLET PO SCH (20:48)
[2016-08-24 23:07] VITALS: BP 104/60
--- NOTE | 2016-08-24 23:41 | CONS ---
DATE OF CONSULTATION: 08/24/2016 REQUESTING PHYSICIAN: Dr. Diana Wright. REASON FOR CONSULTATION: Right shoulder pain. HISTORY OF PRESENT ILLNESS: The patient is a 76-year-old male who had a fall on his right side, a few weeks ago, apparently had about 6 fractured ribs and a bruised lung. He indicates that while rib fractures are healing up somewhat better and less symptomatic, he is having more pain up in the direction of the shoulder, particularly the right shoulder blade area and had presented yesterday for some worsening shortness of breath as well. He has been using an incentive spirometer at home and taking his pain medication, but stated that he came back in due to the worsening pain. He does indicate a remote history of injury to the right shoulder where he was hunting and attempted to jump over a ditch but got his foot caught up and tumbled onto his right shoulder many years ago, apparently had a surgical procedure done at that time and he said it turned out pretty well. He has had some symptoms from that, but nothing as severe as what pain that he is having now. He indicates that it is pretty severe over and really localized over the shoulder blade is where he points says the pain grabs him intermittently and is more constant then specifically aggravated with activities, although activities do make it worse, especially reaching across his body. PAST MEDICAL HISTORY: Significant for coronary artery disease, congestive heart failure, COPD, previous stroke, pneumonia. He is oxygen dependent. PAST SURGICAL HISTORY: Significant for previous multiple vessel coronary bypass, he said it was something like seven stents and has a pacemaker that does have a defibrillator. He has had previous shoulder surgery as noted above, back surgery and colonoscopies. FAMILY HISTORY: Noncontributory. ALLERGIES: He has no known drug allergies. MEDICATIONS: List is reviewed. SOCIAL HISTORY: He is otherwise independently ambulatory and quite active. REVIEW OF SYSTEMS: Significant for the shortness of breath and severe right shoulder pain over the shoulder blade, ongoing, but somewhat resolving right-sided rib pain and bruising. Denies any focal weakness, numbness or tingling. No current chest pain aside from the right-sided rib related pain, no radiating pain in the extremities, change in bowel or bladder habits, fever, chills, rashes or skin lesions. Headache, visual changes. No recent respiratory issues or change in bowel or bladder function. PHYSICAL EXAMINATION: EXTREMITIES: Examination of the right shoulder. He has full active range of motion with pain on extremes of range of motion of the right shoulder, really minimal tenderness over the acromioclavicular joint. No apprehension or instability is present. He does have significant parascapular spasm and tenderness over the scapular spine. No winging or instability is present. He really has minimal tenderness on palpation over the subacromial area and really no significant bicipital irritation signs present. He has normal examination of the contralateral left shoulder, bilateral elbows and wrists, walks with a normal gait. IMAGING: X-rays of the right shoulder show acromioclavicular joint degenerative changes, some mild glenohumeral degenerative change, no evidence of fracture or other bony abnormality. IMPRESSION: More remote fall with right side contusion, multiple broken ribs, parascapular pain, history of previous right shoulder injury, multiple medical problems as noted above. TREATMENT PLAN: I went over with him the fact that his rotator cuff function seems quite good. His x-rays appeared reasonable accepting some mild expected wear and tear. I think his major issue is really pain from contusion around the shoulder blade and parascapular spasm. I did start some Flexeril on him for symptomatic relief of that. I told him that really injection is not expected to be any significant help as it would not address the very specific area such as the bursa or joint area which I do believe to be involved that I inject a trigger point in the muscle diffuse medicine and really not be that effective in a specific symptomatic area. I instead suggested activity as tolerated and did go over some strengthening exercises with him both from rotator cuff standpoint of internal and external rotation and abduction exercises as well as 2 different exercises for scapular retraction and shrugs and demonstrated those for him in the room. I think we can start him on some physical therapy to further work on that with him see how the Flexeril works and really no other intervention at this time. He was very pleased with our discussion and had all his questions answered and was somewhat relieved by the diagnosis and the treatment plan. I would be happy to see him back on an as needed basis, probably in clinic if necessary based on his response to the above. CHELSEA DONALDSON MD DR: BENITA/santosh JOB#: [id number] / [id number] DIANA Houston MD
[2016-08-25 03:55] VITALS: BP 110/64
[2016-08-25] MEDS: CLOPIDOGREL BISULFATE 75 MG TABLET PO SCH (06:32)
[2016-08-25] MEDS: CYCLOBENZAPRINE 10 MG TABLET. PO PRN ×2 (06:45→21:31)
[2016-08-25 07:00] VITALS: BP 107/61
[2016-08-25] MEDS: IPRATRPIUM/ALBUTEROL 0.5/2.5MG 3 ML NEBU. NEB SCH ×4 (07:38→20:48)
[2016-08-25] MEDS: FUROSEMIDE 20 MG TABLET PO SCH (08:31)
[2016-08-25] MEDS: TAMSULOSIN 0.4 MG CAP.ER.24H. PO SCH (08:31)
[2016-08-25] MEDS: POTASSIUM CHLORIDE 20 MEQ TABLET.ER. PO SCH ×3 (08:31→17:19)
[2016-08-25] MEDS: ASPIRIN ENTERIC COATED 325 MG TABLET.DR. PO SCH (08:32)
[2016-08-25] MEDS: AMIODARONE HCL 200 MG TABLET PO SCH (08:32)
[2016-08-25] MEDS: DIGOXIN 125 MCG TABLET PO SCH (08:33)
[2016-08-25] MEDS: CARVEDILOL 3.125 MG TABLET PO SCH ×2 (08:33→17:19)
[2016-08-25] MEDS: HYDROCODONE/APAP 7.5/325MG TABLET. PO PRN ×3 (08:34→21:31)
--- NOTE | 2016-08-25 08:52 | PDOC ---
Provider Note Provider Note pain is more along medial R scapula, no fx in R shoulder, also c/o prox dysphagia- will do BS, xr scapula- K+ wa s2.7, recheck on tid kcl DIANA ELIAS MD Aug 25, 2016 08:52
[2016-08-25] MEDS ORDERED: BARIUM SULFATE 60% 355 ML SUSP PO ONE (09:15)
[2016-08-25] MEDS ORDERED: SIMETHICONE/SOD BICARB/CITRIC ACID PACKET. PO ONE (09:15)
[2016-08-25] MEDS ORDERED: BARIUM SULFATE 98% 135 ML SUSP PO ONE (09:15)
[2016-08-25 11:00] VITALS: BP 110/60
--- NOTE | 2016-08-25 11:23 | PDOC ---
PROGRESS NOTES Subjective Subjective Patient denies any cardiac symptoms, edema, and palpitations. Patient is stable from a cardiac standpoint. Objective Objective Vital Signs Date Time Temp Pulse Resp B/P Pulse Ox O2 Delivery O2 Flow Rate FiO2 08/25/16 09:34 18 08/25/16 08:34 Room Air 08/25/16 08:33 60 107/61 08/25/16 08:00 2.0 08/25/16 07:40 100 08/25/16 07:00 97.5 97.5 Intake and Output 08/25/16 07:00 Output Total 400 ml Balance -400 ml Output Urine Total 400 ml Physical Exam Abdomen: Normal bowel sounds, Soft Heart: Regular rate, Normal S1, Normal S2, Other (1 to 2/6 systolic murmur) HEENT: Atraumatic, Mucous membr. moist/pink Lungs: Clear to auscultation, Other (decreased breath sounds) Neck: Supple, No JVD Assessment Assessment Problems Medical Problems: (1) COPD exacerbation Status: Acute (2) Right rib fracture Status: Acute Plan Plan of Care Assessment and Plan This patient with a known history of coronary artery disease, a previous CVA, COPD and an ischemic cardiomyopathy comes in following a fall in which he sustained injury to the right shoulder as well as rib fractures. At this time he appears to be compensated cardiac-mckeon and I agree with the present plan. Comment Review of Relevant I have reviewed the following items kathryn (where applicable) has been applied. Labs Laboratory Tests Test 08/25/16 08:55 Potassium Level 3.3mmol/L (3.5-5.1) Laboratory Tests Test 08/25/16 08:55 Potassium Level 3.3mmol/L (3.5-5.1) Medications Current Medications Albuterol/ Ipratropium (Duoneb) 3 ml 1X ONCE NEB Last administered on 15:12; Start 08/22/16 at 15:00; Stop 08/22/16 at 15:01; Status DC Fentanyl Citrate (Fentanyl 2ml Vial) 50 mcg 1X ONCE IV Last administered on 16:00; Start 08/22/16 at 16:00; Stop 08/22/16 at 16:01; Status DC Ondansetron HCl (Zofran) 4 mg PRN Q8HRS PRN IV NAUSEA/VOMITING; Start 08/22/16 at 17:45; Stop 08/23/16 at 17:44; Status DC Albuterol/ Ipratropium (Duoneb) 3 ml RTQID NEB Last administered on 08/25/16 07:38; Start 08/22/16 at 20:00 Methylprednisolone Sodium Succinate (Solu-Medrol 125mg Vial) 125 mg 1X ONCE IV Last administered on 08/22/16 18:32; Start 08/22/16 at 18:30; Stop 08/22/16 at 18:31; Status DC Amiodarone HCl (Cordarone) 200 mg DAILY PO Last administered on 08/25/16 08:32 ; Start 08/23/16 at 09:00 Aspirin (Ecotrin) 325 mg DAILY08 PO Last administered on 08/25/16 08:32; Start 08/23/16 at 08:00 Carvedilol (Coreg) 3.125 mg BIDWMEALS PO Last administered on 08/25/16 08:33; Start 08/22/16 at 21:18 Clopidogrel Bisulfate (Plavix) 75 mg DAILY07 PO Last administered on 08/25/16 06:32; Start 08/23/16 at 07:00 Furosemide (Lasix) 20 mg DAILY PO Last administered on 08/25/16 08:31; Start 08/23/16 at 09:00 Acetaminophen/ Hydrocodone Bitart (Lortab 5/325) 1 tab PRN Q6HRS PRN PO PAIN MILD TO MOD Last administered on 08/23/16 14:53; Start 08/22/16 at 20:30; Stop 08/23/16 at 17:42; Status DC Simvastatin (Zocor) 20 mg QHS PO Last administered on 08/24/16 20:48; Start at 21:00 Tamsulosin HCl (Flomax) 0.4 mg DAILY PO Last administered on 08/25/16 08:31; Start 08/23/16 at 09:00 Non-Formulary Medication 2 inh DAILY IH ; Start 08/23/16 at 09:00; Status UNV Potassium Chloride (Klor-Con) 20 meq TIDWMEALS PO Last administered on 08:31; Start 08/23/16 at 08:00 Acetaminophen/ Hydrocodone Bitart (Lortab 7.5/325) 1 tab PRN Q4HRS PRN PO PAIN Last administered on 08/25/16 08:34; Start 08/23/16 at 17:45 Digoxin (Lanoxin) 125 mcg DAILY PO Last administered on 08/25/16 08:33; Start 08/24/16 at 12:00 Cyclobenzaprine HCl (Flexeril) 10 mg TID PRN PRN PO MUSCLE SPASMS Last administered on 08/25/16 06:45; Start 08/24/16 at 12:30 Barium Sulfate (Liquid E-Z Paque) 355 ml 1X ONCE PO Last administered on 09:36; Start 08/25/16 at 09:15; Stop 08/25/16 at 09:16; Status DC Barium Sulfate (E-Z-Hd) 135 ml 1X ONCE PO Last administered on 08/25/16 09:36 ; Start 08/25/16 at 09:15; Stop 08/25/16 at 09:16; Status DC Simethicone/ Sodium Bicarb/ Citric Ac (E-Z-Gas) 1 packet 1X ONCE PO Last administered on 08/25/16 09:36; Start 08/25/16 at 09:15; Stop 08/25/16 at 09:16 ; Status DC Active Scripts Active Bowler 5-325 Tablet (Acetaminophen/Hydrocodone Bitart) 1 Each Tablet 1-2 Tab PO Q4-6HRS As needed for pain of broken ribs Hydrocodone-Apap 5-325 (Hydrocodone Bit/Acetaminophen) 1 Each Tablet 1 Tab PO PRN Q6HRS PRN Be careful as this medication may cause you to be drowsy or tired. Do not drive on this medication. Reported Prednisone 10 Mg Tablet 10 Mg PO DAILY Furosemide 20 Mg Tablet 1 Tab PO DAILY Tamsulosin Hcl 0.4 Mg Cap.er.24h 1 Cap PO DAILY Simvastatin 20 Mg Tablet 1 Tab PO QHS Next dose due: 08/11/15 @ 9 PM Clopidogrel (Clopidogrel Bisulfate) 75 Mg Tablet 1 Tab PO DAILY Next dose due: 08/12/15 @ 8 AM Aspirin Ec (Aspirin) 325 Mg Tablet.dr 1 Tab PO DAILY Next dose due: 08/12/15 @ 8 AM (take with breakfast) Spiriva (Tiotropium Lykens) 18 Mcg Cap.w.dev 2 Inh IH DAILY Amiodarone Hcl 200 Mg Tablet 200 Mg PO DAILY Next dose due: 08/12/15 @ 9 AM Carvedilol 3.125 Mg Tablet 3.125 Mg PO BIDWMEALS Next dose due: 08/11/15 @ 5 PM (take with supper) Vitals/I & O Vital Sign - Last 24 Hours 08/24/16 08/24/16 08/24/16 08/24/16 11:34 11:47 14:52 15:00 Temp 97.8 97.8 Pulse 80 61 Resp 18 B/P 112/59 114/65 Pulse Ox 98 98 O2 Delivery Room Air Room Air Room Air O2 Flow Rate 2.0 08/24/16 08/24/16 08/24/16 08/24/16 15:30 15:52 17:00 19:13 Pulse 61 B/P 114/65 Pulse Ox 98 97 O2 Delivery Room Air Room Air O2 Flow Rate 2.0 08/24/16 08/24/16 08/24/16 08/24/16 19:50 20:48 20:50 21:50 Temp 97.5 97.5 Pulse 61 Resp 20 20 B/P 120/71 Pulse Ox 98 O2 Delivery Room Air Room Air Room Air Room Air 08/24/16 08/25/16 08/25/16 08/25/16 23:07 03:55 07:00 07:40 Temp 97.7 97.8 97.5 97.7 97.8 97.5 Pulse 61 63 60 Resp 20 18 18 B/P 104/60 110/64 107/61 Pulse Ox 97 98 100 100 O2 Delivery Room Air Room Air Room Air Room Air 08/25/16 08/25/16 08/25/16 08/25/16 08:00 08:32 08:33 08:33 Pulse 60 60 60 B/P 107/61 107/61 107/61 O2 Delivery Nasal Cannula O2 Flow Rate 2.0 08/25/16 08/25/16 08:34 09:34 Resp 18 18 O2 Delivery Room Air Intake and Output 08/24/16 08/24/16 08/25/16 15:00 23:00 07:00 Output Total 400 ml Balance -400 ml CRISTIAN REED MD Aug 25, 2016 11:22
--- NOTE | 2016-08-25 12:19 | RAD ---
Indication: Dysphagia. Technique: Barium esophagram was performed using double and single contrast technique. All images were obtained with the patient upright, patient has multiple right rib fractures and therefore was not imaged lying down MALONE. MALONE imaging was performed upright. Fluoroscopy time is 1.3 minutes. Image count is 5. Findings: The esophagus is normal caliber without intrinsic mass or extrinsic displacement. There is mild dysmotility with tertiary contractions noted. Contrast passes freely across the GE junction. No hiatal hernia or reflux was elicited during this exam. Impression: Mild esophageal dysmotility with tertiary contractions noted.
--- NOTE | 2016-08-25 12:50 | RAD ---
Right shoulder, 2 views, 08/25/2016: History: Pain after a fall Comparison is made to a study from 08/22/2016. The bony structures are demineralized. There is moderate spurring at the AC joint. There are dystrophic calcifications at the coracoclavicular articulation compatible with old trauma. No acute shoulder fracture or dislocation is evident. Multiple right-sided rib fractures are present as noted on the CT study of 08/06/2016. These include a mildly displaced fracture of the posterior aspect of the right fourth rib as well as displaced fractures of the right eighth and ninth ribs posterolaterally. IMPRESSION: 1. Demineralization. 2. Moderate degenerative change at the right shoulder. 3. Multiple subacute right rib fractures.
[2016-08-25] MEDS: POLYETHYLENE GLYCOL 3350 17 GM PACKET. PO SCH ×2 (14:11→21:00)
[2016-08-25 15:00] VITALS: BP 116/60
[2016-08-25 19:52] VITALS: BP 106/77
[2016-08-25] MEDS: SIMVASTATIN 20 MG TABLET PO SCH (21:31)
[2016-08-25 23:39] VITALS: BP 142/71
[2016-08-26 02:58] VITALS: BP 121/67
[2016-08-26] MEDS: HYDROCODONE/APAP 7.5/325MG TABLET. PO PRN (04:44)
[2016-08-26] MEDS: CLOPIDOGREL BISULFATE 75 MG TABLET PO SCH (05:23)
[2016-08-26 07:00] VITALS: BP 120/68
[2016-08-26] MEDS: IPRATRPIUM/ALBUTEROL 0.5/2.5MG 3 ML NEBU. NEB SCH (07:52)
[2016-08-26] MEDS: POTASSIUM CHLORIDE 20 MEQ TABLET.ER. PO SCH (08:20)
[2016-08-26] MEDS: TAMSULOSIN 0.4 MG CAP.ER.24H. PO SCH (08:22)
[2016-08-26] MEDS: FUROSEMIDE 20 MG TABLET PO SCH (08:22)
[2016-08-26] MEDS: CYCLOBENZAPRINE 10 MG TABLET. PO PRN (08:22)
[2016-08-26] MEDS: AMIODARONE HCL 200 MG TABLET PO SCH (08:23)
[2016-08-26] MEDS: CARVEDILOL 3.125 MG TABLET PO SCH (08:23)
[2016-08-26] MEDS: ASPIRIN ENTERIC COATED 325 MG TABLET.DR. PO SCH (08:23)
[2016-08-26] MEDS: DIGOXIN 125 MCG TABLET PO SCH (08:23)
[2016-08-26] MEDS: POLYETHYLENE GLYCOL 3350 17 GM PACKET. PO SCH (08:24)
--- NOTE | 2016-08-26 08:37 | DISCH ---
DISCHARGE INSTRUCTIONS Condition on Discharge Condition on Discharge: Stable Activity After Discharge Activity Instructions for Disc: No restrictions Diet after Discharge Diet after Discharge: Low Sodium 4 gm Follow-Up Follow up with: dr rebolledo 2 weeks DIANA ELIAS MD Aug 26, 2016 08:37
--- NOTE | 2016-08-26 08:41 | PDOC ---
Provider Note Provider Note [id number] DIANA ELIAS MD Aug 26, 2016 08:41
[2016-08-26] MEDS ORDERED: ERGOCALCIFEROL (VITAMIN D2) 50,000 UNIT CAPSULE PO ONE (09:00)
--- NOTE | 2016-08-26 09:56 | PDOC ---
PROGRESS NOTES Subjective Subjective Patient sitting upright in bed, states he is ready to go home. Rib pain does prevent him from taking full breaths but he is using incentive spirometer. Denies any cardiac complaints. Stable from cardiac perspective. Objective Objective Vital Signs Date Time Temp Pulse Resp B/P Pulse Ox O2 Delivery O2 Flow Rate FiO2 08/26/16 08:23 64 120/68 08/26/16 08:00 Room Air 08/26/16 07:00 97.5 18 92 97.5 08/26/16 05:44 2.0 Intake and Output 08/26/16 07:00 Intake Total 1100 ml Balance 1100 ml Intake Oral 1100 ml # Voids 3 Physical Exam Heart: Regular rate, Normal S1, Normal S2 Extremities: No edema, Normal pulses General: Alert, Cooperative, No acute distress Lungs: Clear to auscultation, Normal air movement Assessment Assessment Problems Medical Problems: (1) COPD exacerbation Status: Acute (2) Right rib fracture Status: Acute Comment Review of Relevant I have reviewed the following items kathryn (where applicable) has been applied. Labs Laboratory Tests Test 08/25/16 08:55 Potassium Level 3.3mmol/L (3.5-5.1) 25-Hydroxy Vitamin D Total 25.1ng/mL (30.0-100.0) Medications Current Medications Albuterol/ Ipratropium (Duoneb) 3 ml 1X ONCE NEB Last administered on 15:12; Start 08/22/16 at 15:00; Stop 08/22/16 at 15:01; Status DC Fentanyl Citrate (Fentanyl 2ml Vial) 50 mcg 1X ONCE IV Last administered on 16:00; Start 08/22/16 at 16:00; Stop 08/22/16 at 16:01; Status DC Ondansetron HCl (Zofran) 4 mg PRN Q8HRS PRN IV NAUSEA/VOMITING; Start 08/22/16 at 17:45; Stop 08/23/16 at 17:44; Status DC Albuterol/ Ipratropium (Duoneb) 3 ml RTQID NEB Last administered on 08/26/16 07:52; Start 08/22/16 at 20:00 Methylprednisolone Sodium Succinate (Solu-Medrol 125mg Vial) 125 mg 1X ONCE IV Last administered on 08/22/16 18:32; Start 08/22/16 at 18:30; Stop 08/22/16 at 18:31; Status DC Amiodarone HCl (Cordarone) 200 mg DAILY PO Last administered on 08/26/16 08:23 ; Start 08/23/16 at 09:00 Aspirin (Ecotrin) 325 mg DAILY08 PO Last administered on 08/26/16 08:23; Start 08/23/16 at 08:00 Carvedilol (Coreg) 3.125 mg BIDWMEALS PO Last administered on 08/26/16 08:23; Start 08/22/16 at 21:18 Clopidogrel Bisulfate (Plavix) 75 mg DAILY07 PO Last administered on 08/26/16 05:23; Start 08/23/16 at 07:00 Furosemide (Lasix) 20 mg DAILY PO Last administered on 08/26/16 08:22; Start 08/23/16 at 09:00 Acetaminophen/ Hydrocodone Bitart (Lortab 5/325) 1 tab PRN Q6HRS PRN PO PAIN MILD TO MOD Last administered on 08/23/16 14:53; Start 08/22/16 at 20:30; Stop 08/23/16 at 17:42; Status DC Simvastatin (Zocor) 20 mg QHS PO Last administered on 08/25/16 21:31; Start at 21:00 Tamsulosin HCl (Flomax) 0.4 mg DAILY PO Last administered on 08/26/16 08:22; Start 08/23/16 at 09:00 Non-Formulary Medication 2 inh DAILY IH ; Start 08/23/16 at 09:00; Status UNV Potassium Chloride (Klor-Con) 20 meq TIDWMEALS PO Last administered on 08:20; Start 08/23/16 at 08:00 Acetaminophen/ Hydrocodone Bitart (Lortab 7.5/325) 1 tab PRN Q4HRS PRN PO PAIN Last administered on 08/26/16 04:44; Start 08/23/16 at 17:45 Digoxin (Lanoxin) 125 mcg DAILY PO Last administered on 08/26/16 08:23; Start 08/24/16 at 12:00 Cyclobenzaprine HCl (Flexeril) 10 mg TID PRN PRN PO MUSCLE SPASMS Last administered on 08/26/16 08:22; Start 08/24/16 at 12:30; Stop 08/26/16 at 08:40 ; Status DC Barium Sulfate (Liquid E-Z Paque) 355 ml 1X ONCE PO Last administered on 09:36; Start 08/25/16 at 09:15; Stop 08/25/16 at 09:16; Status DC Barium Sulfate (E-Z-Hd) 135 ml 1X ONCE PO Last administered on 08/25/16 09:36 ; Start 08/25/16 at 09:15; Stop 08/25/16 at 09:16; Status DC Simethicone/ Sodium Bicarb/ Citric Ac (E-Z-Gas) 1 packet 1X ONCE PO Last administered on 08/25/16 09:36; Start 08/25/16 at 09:15; Stop 08/25/16 at 09:16 ; Status DC Polyethylene Glycol (miraLAX PACKET) 17 gm BID PO Last administered on 08:24; Start 08/25/16 at 15:00 Ergocalciferol (Vitamin D2) 50,000 unit 1X ONCE PO Last administered on 09:00; Start 08/26/16 at 09:00; Stop 08/26/16 at 09:01; Status DC Active Scripts Active [place] 5-325 Tablet (Acetaminophen/Hydrocodone Bitart) 1 Each Tablet 1-2 Tab PO Q4-6HRS As needed for pain of broken ribs Hydrocodone-Apap 5-325 (Hydrocodone Bit/Acetaminophen) 1 Each Tablet 1 Tab PO PRN Q6HRS PRN Be careful as this medication may cause you to be drowsy or tired. Do not drive on this medication. Reported Prednisone 10 Mg Tablet 10 Mg PO DAILY Furosemide 20 Mg Tablet 1 Tab PO DAILY Tamsulosin Hcl 0.4 Mg Cap.er.24h 1 Cap PO DAILY Simvastatin 20 Mg Tablet 1 Tab PO QHS Next dose due: 08/11/15 @ 9 PM Clopidogrel (Clopidogrel Bisulfate) 75 Mg Tablet 1 Tab PO DAILY Next dose due: 08/12/15 @ 8 AM Aspirin Ec (Aspirin) 325 Mg Tablet.dr 1 Tab PO DAILY Next dose due: 08/12/15 @ 8 AM (take with breakfast) Spiriva (Tiotropium [place]) 18 Mcg Cap.w.dev 2 Inh IH DAILY Amiodarone Hcl 200 Mg Tablet 200 Mg PO DAILY Next dose due: 08/12/15 @ 9 AM Carvedilol 3.125 Mg Tablet 3.125 Mg PO BIDWMEALS Next dose due: 08/11/15 @ 5 PM (take with supper) Vitals/I & O Vital Sign - Last 24 Hours 08/25/16 08/25/16 08/25/16 08/25/16 11:00 11:40 15:00 15:55 Temp 98.3 97.8 98.3 97.8 Pulse 60 80 Resp 18 17 18 B/P 110/60 116/60 Pulse Ox 96 96 O2 Delivery Room Air Room Air Room Air 08/25/16 08/25/16 08/25/16 08/25/16 16:25 16:55 17:19 19:52 Temp 97.6 97.6 Pulse 80 70 Resp 18 20 B/P 116/60 106/77 Pulse Ox 96 O2 Delivery Room Air Room Air 08/25/16 08/25/16 08/25/16 08/25/16 20:00 20:49 21:31 23:39 Temp 98.1 98.1 Pulse 78 Resp 20 B/P 142/71 Pulse Ox 95 95 100 O2 Delivery Nasal Cannula Room Air Nasal Cannula Nasal Cannula O2 Flow Rate 2.0 2.0 2.0 08/26/16 08/26/16 08/26/16 08/26/16 02:58 04:44 05:44 07:00 Temp 97.4 97.5 97.4 97.5 Pulse 59 64 Resp 20 18 B/P 121/67 120/68 Pulse Ox 95 95 95 92 O2 Delivery Room Air Nasal Cannula Nasal Cannula Room Air O2 Flow Rate 2.0 2.0 08/26/16 08/26/16 08/26/16 08/26/16 07:52 08:00 08:23 08:23 Pulse 64 64 B/P 120/68 120/68 O2 Delivery Room Air Room Air 08/26/16 08:23 Pulse 64 B/P 120/68 Intake and Output 08/25/16 08/25/16 08/26/16 15:00 23:00 07:00 Intake Total 510 ml 590 ml Balance 510 ml 590 ml CRISTIAN REED MD Aug 26, 2016 09:56
[2016-08-26 10:14] VITALS: BP 97/60
--- NOTE | 2016-08-26 18:24 | DS ---
DATE OF DISCHARGE: 08/26/2016 HOSPITAL SUMMARY: A 76-year-old with COPD and severe cardiomyopathy, he has recently fallen, has right rib fractures. He came in because of increasing weakness, pain, and dyspnea. Chest x-ray did not show any pneumothorax or hemothorax and the rib fractures were seen as well. The shoulder and scapula on the right side showed severe arthritis in the AC joint with no sign of fractures and there was again the right 8th and 9th rib fractures noted. Barium swallow showed mild tertiary contraction and dysmotility but no sign of obstructive lesion. Potassium was borderline low at 3.3 on admission and came down to 2.7 and then backed up to 3.3 with hydration. Vitamin D level was borderline low at 25 and a sodium level was mildly low at 126. He was treated with oral pain medication and is doing fairly well. Potassium replacement seems to have enhanced his muscle strength as well. He is comfortable to be followed as an outpatient at this point. FINAL DIAGNOSES: 1. Right-sided rib fractures. 2. Hypokalemia secondary to diuretic use. 3. Hyponatremia secondary to diuretic use for severe cardiomyopathy. OPERATIONS, PROCEDURES, AND COMPLICATIONS: None. CONSULTATIONS: Dr. Moran. DISPOSITION: We will increase potassium to 20 mEq twice a day and office followup in 2 weeks with repeat BMP to check both sodium and potassium levels. Helper 7.5/325 q.i.d. p.r.n. #60 was written for pain. Rest of home meds remains the same. Low sodium diet and good fluid intake encouraged. PROGNOSIS: Guarded. DIANA ELIAS MD DR: NAZANIN/nts JOB#: [id number] / [id number]
== END 2016-08-26 10:45 | disposition home or self-care (01) | DRG 184 ==
LOC: ER 14:32 → 5 NORTH 15:54
PROVIDERS: ADMIT Family Medicine; ATTEND Family Medicine
DX: S22.41XA Multiple fractures of ribs, right side, initial encounter for closed fracture (principal); E87.1 Hypo-osmolality and hyponatremia; J44.1 Chronic obstructive pulmonary disease with (acute) exacerbation; E87.6 Hypokalemia; T50.2X5A Adverse effect of carbonic-anhydrase inhibitors, benzothiadiazides and other diuretics, initial encounter; F17.210 Nicotine dependence, cigarettes, uncomplicated; I25.10 Atherosclerotic heart disease of native coronary artery without angina pectoris; I25.5 Ischemic cardiomyopathy; I11.0 Hypertensive heart disease with heart failure; I50.9 Heart failure, unspecified; F32.9 Major depressive disorder, single episode, unspecified; F41.9 Anxiety disorder, unspecified; M19.90 Unspecified osteoarthritis, unspecified site; W18.39XA Other fall on same level, initial encounter; Y93.89 Activity, other specified; Y92.89 Other specified places as the place of occurrence of the external cause; Z82.49 Family history of ischemic heart disease and other diseases of the circulatory system; Z86.73 Personal history of transient ischemic attack (TIA), and cerebral infarction without residual deficits; Z95.1 Presence of aortocoronary bypass graft; Z95.810 Presence of automatic (implantable) cardiac defibrillator; Z99.81 Dependence on supplemental oxygen; Y99.8 Other external cause status; Z87.01 Personal history of pneumonia (recurrent); Z79.899 Other long term (current) drug therapy
CPT/HCPCS: 36415; 71010; 73010; 73030; 74220; 80048; 82306; 84132; 84484; 85007; 85027; 93005; 94250; 94640; 94760; 96374; J2930; J3010; J7620; 97110; 99285-25

== ENCOUNTER 2017-05-04 08:06 | Inpatient (IN) | payer MEDICARE ==
[~2017-05-04] VITALS: Ht 182.9 cm; Wt 70.8 kg
[~2017-05-04 08:06] MED LIST changes: -HYDR-2666 PO; +HYDR-2758 PO; -POTA10CA PO; +POTASSIUM CHLO10 MEQ PO
--- NOTE | 2017-05-04 08:36 | PHYS DOC ---
Past Medical History Past Medical History: Anxiety, CAD, CHF, COPD, CVA, Pneumonia, Stroke, Other Additional Past Medical Histor: OXYGEN DURING SLEEPING (2 L) Past Surgical History: Angioplasty, Coronary Bypass Surgery, Pacemaker, Other Additional Past Surgical Histo: PACEMAKER WITH DEFIB, (7) STENTS, SEVERAL COLONOSCOPY'S,BACK,SHOULDER Alcohol Use: Occasionally Drug Use: None Adult General Chief Complaint Chief Complaint: WEAKNESS/GENERALIZED HPI HPI Patient is a 77 year old male with a history of CAD, COPD, CVA on plavix and defibrillator presents to the ED complaining of weakness over the last 3 weeks. States he hasnt been well since he fell and broke his ribs last July. Complains of generalized pain. States he took norco at home with some improvement. Associated symptoms include around a 30 lb weight loss in the last 8 months. Denies headache, fever, n/v, dizziness, palpitations, shortness of breath, n/v. Review of Systems Review of Systems Constitutional: Denies fever or chills [] Eyes: Denies change in visual acuity, redness, or eye pain [] HENT: Denies nasal congestion or sore throat [] Respiratory: Denies cough or shortness of breath [] Cardiovascular: No additional information not addressed in HPI [] GI: Denies abdominal pain, nausea, vomiting, bloody stools or diarrhea [] : Denies dysuria or hematuria [] Musculoskeletal: Denies back pain or joint pain [] Integument: Denies rash or skin lesions [] Neurologic: Denies headache, focal weakness or sensory changes [] Endocrine: Denies polyuria or polydipsia [] All other systems were reviewed and found to be within normal limits, except as documented in this note. Current Medications Current Medications Current Medications Medications (Trade) Dose Ordered Sig/Ave Start Time Stop Time Status Last Admin Dose Admin Sodium Chloride 1,000 ml @ 1,000 mls/hr 1X ONCE 05/04/17 10:30 05/04/17 11:29 DC 05/04/17 14:01 1,000 MLS/HR Allergies Allergies Allergies Coded Allergies Type Severity Reaction Last Updated Verified No Known Drug Allergies 03/06/15 No Physical Exam Physical Exam Constitutional: Well developed, no acute distress, non-toxic appearance. [] HENT: Normocephalic, atraumatic, bilateral external ears normal, oropharynx moist, no oral exudates, nose normal. [] Eyes: PERRLA, EOMI, conjunctiva pale, no discharge. [] Neck: Normal range of motion, no tenderness, supple, no stridor. [] Cardiovascular:Heart rate regular rhythm, no murmur [] Lungs & Thorax: Bilateral breath sounds clear to auscultation [] Abdomen: Bowel sounds normal, soft, no tenderness, no masses, no pulsatile masses. [] Skin: Warm, dry, no erythema, no rash. [] Back: No tenderness, no CVA tenderness. [] Extremities: No tenderness, no cyanosis, no clubbing, ROM intact, no edema. [] Neurologic: Alert and oriented X 3, normal motor function, normal sensory function, no focal deficits noted. [] Psychologic: Affect normal, judgement normal, mood normal. [] Current Patient Data Vital Signs Vital Signs Date Time Temp Pulse Resp B/P (MAP) Pulse Ox O2 Delivery O2 Flow Rate FiO2 05/04/17 10:47 66 18 98 05/04/17 10:00 98.1 98.1 05/04/17 08:18 139/78 (98) Room Air Lab Values Laboratory Tests Test 05/04/17 08:28 05/04/17 08:40 05/04/17 09:11 05/04/17 09:35 Influenza Type A Antigen Negative (NEGATIVE) Influenza Type B Antigen Negative (NEGATIVE) White Blood Count 14.3 x10^3/uL (4.0-11.0) H Red Blood Count 3.82 x10^6/uL (4.30-5.70) L Hemoglobin 11.9 g/dL (13.0-17.5) L Hematocrit 35.1 % (39.0-53.0) L Mean Corpuscular Volume 92 fL (79-100) Mean Corpuscular Hemoglobin 31 pg (25-35) Mean Corpuscular Hemoglobin Concent 34 g/dL (31-37) Red Cell Distribution Width 12.7 % (11.5-14.5) Platelet Count 387 x10^3/uL (140-400) Neutrophils (%) (Auto) 63 % (31-73) Lymphocytes (%) (Auto) 26 % (24-48) Monocytes (%) (Auto) 10 % (0-9) H Eosinophils (%) (Auto) 1 % (0-3) Basophils (%) (Auto) 1 % (0-3) Neutrophils # (Auto) 9.0 x10^3uL (1.8-7.7) H Lymphocytes # (Auto) 3.8 x10^3/uL (1.0-4.8) Monocytes # (Auto) 1.4 x10^3/uL (0.0-1.1) H Eosinophils # (Auto) 0.1 x10^3/uL (0.0-0.7) Basophils # (Auto) 0.1 x10^3/uL (0.0-0.2) Lactic Acid Level 1.2 mmol/L (0.4-2.0) Urine Color [place] Urine Clarity Clear Urine pH 6.[address] [place] 1.020 Urine Protein Negative mg/dL (NEG-TRACE) Urine Glucose (UA) Negative mg/dL (NEG) Urine Ketones (Stick) Negative mg/dL (NEG) Urine Blood Negative (NEG) Urine Nitrite Negative (NEG) Urine Bilirubin Negative (NEG) Urine Urobilinogen Dipstick 1.0 mg/dL (0.2 mg/dL) Urine Leukocyte Esterase Negative (NEG) Urine RBC 0 /HPF (0-2) Urine WBC Occ /HPF (0-4) Urine Squamous Epithelial Cells Occ /LPF Urine Amorphous Sediment Present /HPF Urine Bacteria 0 /HPF (0-FEW) Urine Hyaline Casts Few /HPF Urine Mucus Mod /LPF Sodium Level 127 mmol/L (136-145) L Potassium Level 4.6 mmol/L (3.5-5.1) Chloride Level 95 mmol/L (98-107) L Carbon Dioxide Level 27 mmol/L (21-32) Anion Gap 5 (6-14) L Blood Urea Nitrogen 23 mg/dL (8-26) Creatinine 0.8 mg/dL (0.7-1.3) Estimated GFR (Cockcroft-Gault) 94.0 BUN/Creatinine Ratio 29 (6-20) H Glucose Level 97 mg/dL (70-99) Calcium Level 9.0 mg/dL (8.5-10.1) Total Bilirubin 0.4 mg/dL (0.2-1.0) Aspartate Amino Transferase (AST) 15 U/L (15-37) Alanine Aminotransferase (ALT) 17 U/L (16-63) Alkaline Phosphatase 56 U/L (46-116) Creatine Kinase 40 U/L (39-308) Creatine Kinase MB (Mass) 2.6 ng/mL (0.0-3.6) Creatine Kinase MB Relative Index % (0-4) Troponin I Quantitative 0.020 ng/mL (0.000-0.055) Total Protein 5.9 g/dL (6.4-8.2) L Albumin 3.2 g/dL (3.4-5.0) L Albumin/Globulin Ratio 1.2 (1.0-1.7) Thyroid Stimulating Hormone (TSH) 0.017 uIU/mL (0.358-3.74) L Thyroxine (T4) 10.2 ug/dL (4.5-12.0) Test 05/04/17 09:58 Stool Occult Blood Positive (NEG) Laboratory Tests 05/04/17 08:40 Laboratory Tests 05/04/17 09:35 Microbiology 05/04/17 Blood Culture - Preliminary, Resulted NO GROWTH AFTER 2 DAYS EKG EKG [] Radiology/Procedures Radiology/Procedures PROCEDURE: PORTABLE CHEST 1V Indication: Cough. Time of exam 0838 hours. The heart size is stable. There are changes of median sternotomy. Cardiac defibrillator remains in place. There appears to be some calcified pleural plaquing on the left. No infiltrate or failure is detected. No effusion or pneumothorax is seen. Impression: Stable chest. No acute feature is detected. [] PROCEDURE: CT ABD PELV W/ IV CONTRST ONLY Indication: Abdominal pain. Axial imaging through the abdomen and pelvis was performed after the administration of intravenous contrast. Correlation is made with prior CT from 06/30/2016. The lung bases are clear of acute infiltrates. The liver and gallbladder are unremarkable. The pancreas and spleen are unremarkable. No adrenal mass is detected. Renal low densities and renal calcifications appears stable. Aorta is heavily calcified but nonaneurysmal. The small and large bowel loops are normal caliber. There is sigmoid diverticulosis but no evidence of acute diverticulitis. The bladder is unremarkable. The prostate is enlarged. No acute inflammatory process is identified. Impression: Stable chronic changes when compared with exam from 06/30/2016. No acute feature is detected. Course & Med Decision Making Course & Med Decision Making Pertinent Labs and Imaging studies reviewed. (See chart for details) []Discussed case with patient's PCP office and on-call doctor, Dr. Marquez. Agrees to admission and further management patient. Patient stable for admission. Consult placed for GI and cardiology. Dragon Disclaimer Dragon Disclaimer This electronic medical record was generated, in whole or in part, using a voice recognition dictation system. Departure Departure Impression: Primary Impression: Generalized weakness Additional Impression: Hyponatremia Disposition: ADMITTED INPATIENT Condition: STABLE Referrals: DIANA ELIAS MD (PCP) Problem Qualifiers ABRAHAM BLANCHARD May 04, 2017 08:36
--- NOTE | 2017-05-04 08:46 | RAD ---
Indication: Cough. Time of exam 0838 hours. The heart size is stable. There are changes of median sternotomy. Cardiac defibrillator remains in place. There appears to be some calcified pleural plaquing on the left. No infiltrate or failure is detected. No effusion or pneumothorax is seen. Impression: Stable chest. No acute feature is detected.
[2017-05-04 09:07] LABS: BASO # 0.1 x10^3/uL (0.0-0.2); BASO % 1 % (0-3); EOS % 1 % (0-3); HEMATOCRIT 35.1 % (39.0-53.0); HEMOGLOBIN 11.9 g/dL (13.0-17.5); LYMPH # 3.8 x10^3/uL (1.0-4.8); LYMPH % 26 % (24-48); MEAN CORPUSCULAR HEMOGLOBIN 31 pg (25-35); MEAN CORPUSCULAR HGB CONC 34 g/dL (31-37); MEAN CORPUSCULAR VOLUME 92 fL (79-100); MONO % 10 % (0-9); NEUT % 63 % (31-73); PLATELET COUNT 387 x10^3/uL (140-400); RED BLOOD COUNT 3.82 x10^6/uL (4.30-5.70); RED CELL DISTRIBUTION WIDTH 12.7 % (11.5-14.5); WHITE BLOOD COUNT 14.3 x10^3/uL (4.0-11.0)
--- NOTE | 2017-05-04 09:07 | EKG ---
[facility] [address] [place] [address] Test Date: 2017-05-04 Test Time: 08:42:52 Pat Name: SOFIA REAGAN Department: Room: Gender: M Inspector Fuel Hose: : 1940 Requested By: ABRAHAM BLANCHARD Order Number: [id number] Reading MD: Jonathan Sutherland MD Measurements Intervals [place] Rate: 65 P: 65 VT: 134 QRS: -107 QRSD: 154 T: 122 QT: 464 QTc: 483 Interpretive Statements SINUS RHYTHM V-PACED Electronically Signed On 05-05-2017 16:39:30 DARK ROOM ATTENDANT by Jonathan Sutherland MD
[2017-05-04 09:14] LABS: OBC FLU VALID
[2017-05-04 09:37] LABS: BILIRUBIN,URINE NEGATIVE (NEG); GLUCOSE,URINE NEGATIVE (NEG); NITRITE,URINE NEGATIVE (NEG); PH,URINE 6.5; PROTEIN,URINE NEGATIVE (NEG-TRACE)
[2017-05-04 09:47] LABS: BACTERIA,URINE 0 /HPF (0-FEW); RBC,URINE 0 /HPF (0-2); SQUAMOUS EPITHELIAL CELL,UR OCC /LPF; WBC,URINE OCC /HPF (0-4)
[2017-05-04 10:06] LABS: ALBUMIN 3.2 g/dL (3.4-5.0); ALBUMIN/GLOBULIN RATIO 1.2 (1.0-1.7); CREATININE 0.8 mg/dL (0.7-1.3); POTASSIUM 4.6 mmol/L (3.5-5.1); TOTAL BILIRUBIN 0.4 mg/dL (0.2-1.0); TOTAL PROTEIN 5.9 g/dL (6.4-8.2)
[2017-05-04 10:16] LABS: CKMB MASS 2.6 ng/mL (0.0-3.6); CREATINE KINASE 40 U/L (39-308)
[2017-05-04 10:18] LABS: NEG OBC FOB NEG; POS OBC FOB POS
[2017-05-04] MEDS ORDERED: IV NORMAL SALINE 1000ML BAG 1,000 ML IV ONE (10:30)
[2017-05-04] MEDS ORDERED: CONTRAST GIVEN MC PRN (11:30)
[2017-05-04] MEDS ORDERED: IOHEXOL 300 MG/ML 100ML VIAL. IV ONE (11:45)
[2017-05-04] MEDS ORDERED: MORPHINE SULFATE 2 MG/ML DISP.SYRIN. IV PRN (11:45)
[2017-05-04] MEDS ORDERED: ONDANSETRON PF 4 MG/2 ML VIAL. IV PRN (11:45)
--- NOTE | 2017-05-04 11:58 | RAD ---
Indication: Abdominal pain. Axial imaging through the abdomen and pelvis was performed after the administration of intravenous contrast. Correlation is made with prior CT from 06/30/2016. The lung bases are clear of acute infiltrates. The liver and gallbladder are unremarkable. The pancreas and spleen are unremarkable. No adrenal mass is detected. Renal low densities and renal calcifications appears stable. Aorta is heavily calcified but nonaneurysmal. The small and large bowel loops are normal caliber. There is sigmoid diverticulosis but no evidence of acute diverticulitis. The bladder is unremarkable. The prostate is enlarged. No acute inflammatory process is identified. Impression: Stable chronic changes when compared with exam from 06/30/2016. No acute feature is detected.
[2017-05-04 13:00] VITALS: BP 89/62
--- NOTE | 2017-05-04 13:30 | PDOC2 ---
GI CONSULT Reason For Consult: Positive occult stool HPI: HPI: 77 y/o male previously seen by Dr. Pascal for anorexia and dysgeusia. Evaluated in ER for weakness and shoulder/back/neck pain. H/o ribs fractures earlier this year, has struggled w/ pain since. On [place], Excedrin, and ibuprofen. Also recently on daily prednisone for polymyalgia rheumatica (he thinks). Decreased appetite for awhile w/ ~30 pound weight loss this year. Urinary hesitancy, constipation, and lower abd discomfort w/ bloating. Worse after eating, better w/ flatus. Has tried Dulcolax, Miralax, suppositories, and probiotics w/ some relief - actually had some loose stool a couple days ago. Denies hematochezia and melena. No n/v, no reflux/heartburn. Worried he has cancer; says they both have had difficulty w/ anxiety lately. Additionally, recent "migraine" w/ tooth pain. underwent root canal last week. Recalls colonoscopy ~2 years ago w/ Dr. Freeman w/ polyp. Diverticulosis noted on CT, also reports h/o diverticulitis. Esophagram earlier this year w/ mild dysmotility, tertiary contraction. Does not recall previous EGD. No GB, liver , pancreas history. Hgb 11.9, stable since 07/2015. Normal BUN, Cr. Hemoccult positive. PMH: PMH: CAD s/p CABG, CHF, [place], CVA, TIA, COPD, hypotension, polymyalgia rheumatica, diverticulosis/itis, colon polyps, OA, rib fractures, BPH, AICD, right shoulder repair, back surgery, left knee arthroscopy FH: Family History: Cancer, CAD Social History: Smoke: <1 pack per day ALCOHOL: rare Drugs: None ROS: GEN: Denies fevers, chills, sweats HEENT: Denies blurred vision, sore throat CV: Denies chest pain RESP: +cough GI: Per HPI : +urinary hesitancy ENDO: +weight loss NEURO: +anxiety MSK: +back, shoulder, neck pain SKIN: Denies jaundice, pruritus Vitals: Vitals: Vital Signs Date Time Temp Pulse Resp B/P (MAP) Pulse Ox O2 Delivery O2 Flow Rate FiO2 05/04/17 10:47 66 18 98 05/04/17 10:00 98.1 98.1 05/04/17 08:18 139/78 (98) Room Air Labs: Labs: Laboratory Tests Test 05/04/17 08:28 05/04/17 08:40 05/04/17 09:11 05/04/17 09:35 Influenza Type A Antigen Negative (NEGATIVE) Influenza Type B Antigen Negative (NEGATIVE) White Blood Count 14.3 x10^3/uL (4.0-11.0) Red Blood Count 3.82 x10^6/uL (4.30-5.70) Hemoglobin 11.9 g/dL (13.0-17.5) Hematocrit 35.1 % (39.0-53.0) Mean Corpuscular Volume 92 fL (79-100) Mean Corpuscular Hemoglobin 31 pg (25-35) Mean Corpuscular Hemoglobin Concent 34 g/dL (31-37) Red Cell Distribution Width 12.7 % (11.5-14.5) Platelet Count 387 x10^3/uL (140-400) Neutrophils (%) (Auto) 63 % (31-73) Lymphocytes (%) (Auto) 26 % (24-48) Monocytes (%) (Auto) 10 % (0-9) Eosinophils (%) (Auto) 1 % (0-3) Basophils (%) (Auto) 1 % (0-3) Neutrophils # (Auto) 9.0 x10^3uL (1.8-7.7) Lymphocytes # (Auto) 3.8 x10^3/uL (1.0-4.8) Monocytes # (Auto) 1.4 x10^3/uL (0.0-1.1) Eosinophils # (Auto) 0.1 x10^3/uL (0.0-0.7) Basophils # (Auto) 0.1 x10^3/uL (0.0-0.2) Lactic Acid Level 1.2 mmol/L (0.4-2.0) Urine Color [place] Urine Clarity Clear Urine pH 6.5 Urine Specific [place] 1.020 Urine Protein Negative mg/dL (NEG-TRACE) Urine Glucose (UA) Negative mg/dL (NEG) Urine Ketones (Stick) Negative mg/dL (NEG) Urine Blood Negative (NEG) Urine Nitrite Negative (NEG) Urine Bilirubin Negative (NEG) Urine Urobilinogen Dipstick 1.0 mg/dL (0.2 mg/dL) Urine Leukocyte Esterase Negative (NEG) Urine RBC 0 /HPF (0-2) Urine WBC Occ /HPF (0-4) Urine Squamous Epithelial Cells Occ /LPF Urine Amorphous Sediment Present /HPF Urine Bacteria 0 /HPF (0-FEW) Urine Hyaline Casts Few /HPF Urine Mucus Mod /LPF Sodium Level 127 mmol/L (136-145) Potassium Level 4.6 mmol/L (3.5-5.1) Chloride Level 95 mmol/L (98-107) Carbon Dioxide Level 27 mmol/L (21-32) Anion Gap 5 (6-14) Blood Urea Nitrogen 23 mg/dL (8-26) Creatinine 0.8 mg/dL (0.7-1.3) Estimated GFR (Cockcroft-Gault) 94.0 BUN/Creatinine Ratio 29 (6-20) Glucose Level 97 mg/dL (70-99) Calcium Level 9.0 mg/dL (8.5-10.1) Total Bilirubin 0.4 mg/dL (0.2-1.0) Aspartate Amino Transf (AST/SGOT) 15 U/L (15-37) Alanine Aminotransferase (ALT/SGPT) 17 U/L (16-63) Alkaline Phosphatase 56 U/L (46-116) Creatine Kinase 40 U/L (39-308) Creatine Kinase MB (Mass) 2.6 ng/mL (0.0-3.6) Creatine Kinase MB Relative Index % (0-4) Troponin I Quantitative 0.020 ng/mL (0.000-0.055) Total Protein 5.9 g/dL (6.4-8.2) Albumin 3.2 g/dL (3.4-5.0) Albumin/Globulin Ratio 1.2 (1.0-1.7) Test 05/04/17 09:58 Stool Occult Blood Positive (NEG) Allergies: Coded Allergies: No Known Drug Allergies (Unverified , 03/06/15) Medications: Current Medications Medications (Trade) Dose Ordered Sig/Ave Route PRN Reason Start Time Stop Time Status Last Admin Dose Admin Iohexol (Omnipaque 300 Mg/ml) 75 ml 1X ONCE IV 05/04/17 11:45 05/04/17 11:46 DC 05/04/17 11:32 Imaging: Imaging: CXR Impression: Stable chest. No acute feature is detected. CT A/P Impression: Stable chronic changes when compared with exam from 06/30/2016. No acute feature is detected. PE: GEN: NAD, thin HEENT: Atraumatic, PERRL LUNGS: diminished HEART: RRR ABD: NABS, S/ND, suprapubic to periumbilical area - mild discomfort EXTREMITY: No edema SKIN: No rashes, no jaundice NEURO/PSYCH: A & O 3 A/P: A/P: MSK pain - ribs, shoulder, back, neck -?polymyalgia -on [place], Excedrin, ibuprofen, prednisone Decreased appetite, weight loss, weakness -30 pounds this year, CT A/P unrevealing -long smoking history, no previous EGD Lower abd discomfort, constipation CRC screen, h/o colon polyps -last colonoscopy ~2 years ago Positive hemoccult -Hgb 11.9, stable x ~2 years -no obvious bleeding -on Plavix, ASA Urinary hesitancy, h/o BPH -per primary -- CT unrevealing for acute issue, note diverticulosis. Will review w/ Dr. Pascal - ?Relistor Empiric acid-financial aid advisor. URVASHI MARIN May 04, 2017 13:30
[2017-05-04 15:00] VITALS: BP 95/53
[2017-05-04] MEDS ORDERED: CARVEDILOL 3.125 MG TABLET. PO SCH (17:00)
[2017-05-04 19:00] VITALS: BP 96/54
[2017-05-04] MEDS: methIMAzole 10 MG TABLET PO SCH ×2 (19:36→21:41)
[2017-05-04] MEDS: ZOLPIDEM 5 MG TABLET. PO PRN (19:36)
[2017-05-04] MEDS: PANTOPRAZOLE 40 MG TABLET.DR. PO SCH (19:36)
[2017-05-04] MEDS: SIMVASTATIN 20 MG TABLET PO SCH (19:37)
[2017-05-04 23:00] VITALS: BP 96/49
[2017-05-05] VITALS (7 sets, daily range): BP systolic 96–107; BP diastolic 41–63
[2017-05-05 05:16] LABS: BASO % 0 % (0-3); EOS % 1 % (0-3); HEMATOCRIT 31.6 % (39.0-53.0); HEMOGLOBIN 10.7 g/dL (13.0-17.5); LYMPH # 2.6 x10^3/uL (1.0-4.8); LYMPH % 18 % (24-48); MEAN CORPUSCULAR HEMOGLOBIN 31 pg (25-35); MEAN CORPUSCULAR HGB CONC 34 g/dL (31-37); MEAN CORPUSCULAR VOLUME 92 fL (79-100); MONO % 9 % (0-9); NEUT % 72 % (31-73); PLATELET COUNT 321 x10^3/uL (140-400); RED BLOOD COUNT 3.43 x10^6/uL (4.30-5.70); WHITE BLOOD COUNT 14.7 x10^3/uL (4.0-11.0)
[2017-05-05 05:48] LABS: ALBUMIN/GLOBULIN RATIO 1.1 (1.0-1.7); CALCIUM 8.5 mg/dL (8.5-10.1); CREATININE 0.8 mg/dL (0.7-1.3); POTASSIUM 4.2 mmol/L (3.5-5.1); TOTAL BILIRUBIN 0.6 mg/dL (0.2-1.0); TOTAL PROTEIN 5.8 g/dL (6.4-8.2)
[2017-05-05] MEDS: methIMAzole 10 MG TABLET PO SCH ×3 (06:21→20:40)
[2017-05-05] MEDS: PANTOPRAZOLE 40 MG TABLET.DR. PO SCH (06:21)
[2017-05-05] MEDS ORDERED: FUROSEMIDE 20 MG TABLET PO SCH (09:00)
--- NOTE | 2017-05-05 09:03 | PDOC1 ---
H & P H&P HPI: Mr. Bergeron 77-year-old male with past medical history of COPD, nicotine dependence, FUENTES, systolic and diastolic congestive heart failure, PAD, BPH, history of TIA, who was recently diagnosed office as having hyperthyroidism and possible diagnosis of polymyalgia rheumatica, who presents to the ED for fatigue , weakness, weight loss, extreme pain. He notes that symptoms began after a fall in July 2016 where he sustained multiple rib fractures. He was placed on [place] at that time, but continued to require it for normal functioning. He notes significant muscle aching extreme pain, especially in proximal muscles. He notes significant weight loss of approximately 30 pounds in the last number of months. He has also been unable to sleep more than a few hours over the last few days. ED Course: Labs remarkable for hyponatremia, positive fecal occult blood, mildly decreased hemoglobin. CT abdomen and pelvis was unremarkable. Admitted for further work up. PMH: COPD, nicotine dependence, FUENTES, systolic and diastolic congestive heart failure, PAD, BPH, history of TIA, who was recently diagnosed office as having hyperthyroidism and possible diagnosis of polymyalgia rheumatica SocialHx: Nondrinker, current smoker times many pack year history, SurgHx: Rectal surgery, knee surgery, pacemaker placement, CABG Family Hx: Mother had alcoholism, emphysema, [place], stroke Meds: Reviewed Allergies: None PE: Alert, oriented, no acute distress EXTRAOCULAR movements intact, sclera nonicteric, no exophthalmos Thyroid normal size, nontender, no nodules, no cervical lymphadenopathy Regular rate and rhythm, no murmur Clear to auscultation bilaterally Abdomen soft nontender nondistended No edema in lower extremities bilaterally Cooperative Assessment/Plan: Hyperthyroidism Possible polymyalgia rheumatica Weight loss Positive fecal occult Hyponatremia Hypertension, now hypotensive COPD Nicotine dependence Systolic and diastolic congestive heart failure PAD BPH Holding home Lasix, carvedilol, aspirin, Plavix GI consulted for positive fecal occult. Recent colonoscopy was unremarkable. Pain has improved Recent CT chest as outpt was normal per pt report (will attempt to get records) Thyroid ultrasound Continue methimazole, prednisone AM cortisol level Nicotine patch as desired NGOZI MICHELE MD May 05, 2017 09:03
--- NOTE | 2017-05-05 10:53 | PDOC2 ---
CONSULT Date of Consult Date of Consult DATE: 05/05/17 TIME: 10:53 Reason for Consult Reason for Consult: H/o CAD, CVA, systolic and diastolic CHF, PAD, HTN, TIA. s/p Pacemaker w/ defibrillator in place, s/p CABG Identification/Chief Complaint Chief Complaint Generalized Weakness Problems: Source Source: Chart review, Patient History of Present Illness Reason for Visit: Mr. Bergeron is a 77 yo male with a h/o CAD, HTN, CVA, PAD, systolic and diastolic CHF, TIA, COPD, and s/p CABG. Patient is currently on plavix and has a pacemaker w/ a defibrillator. Patient presented to the ED yesterday due to continued general weakness x 3 weeks. Patient reports that since last July when he fell and broke his ribs, he has not been well. After his fall, he was placed on [place] which he continued to require for normal functioning. Patient still reports significant muscle aching and weakness, especially in proximal muscles. Along with the weakness, he reports an ~30lb weight loss over the last 8 months. Patient denies SOB, chest pain/discomfort, heart palpitations, or dizziness. Patient expresses concern that all of the medications that he is currently taking are causing some of the weakness and other side effects, Patient sees Dr. Gaston at for cardiology. No additional concerns at this time. Past Medical History Cardiovascular: CAD, CHF, HTN, [place], Other Pulmonary: COPD CENTRAL NERVOUS SYSTEM: CVA, TIA Psych: Anxiety, Depression Musculoskeletal: Osteoarthritis Renal/: Benign prostatic enlarg. Past Surgical History Past Surgical History: Pacemaker, CABG, Other Family History Family History: Cancer, Coronary Artery Disease Social History <1 pack per day ALCOHOL: rare Drugs: None Lives: Alone Domestic Violence: Neg Current Problem List Problem List Problems Medical Problems: (1) Generalized weakness Status: Acute (2) Hyponatremia Status: Acute Current Medications Current Medications Current Medications Sodium Chloride 1,000 ml @ 1,000 mls/hr 1X ONCE IV Last administered on 05/04 14:01; Start 05/04/17 at 10:30; Stop 05/04/17 at 11:29; Status DC Iohexol (Omnipaque 300 Mg/ml) 75 ml 1X ONCE IV Last administered on 11:32; Start 05/04/17 at 11:45; Stop 05/04/17 at 11:46; Status DC Info (Do NOT chart on this entry -- for MONITORING) 1 each PRN DAILY PRN MC SEE COMMENTS; Start 05/04/17 at 11:30; Stop 05/06/17 at 11:29 Ondansetron HCl (Zofran) 4 mg PRN Q8HRS PRN IV NAUSEA/VOMITING; Start at 11:45; Stop 05/05/17 at 11:44 Morphine Sulfate 2 mg PRN Q2HR PRN IV PAIN; Start 05/04/17 at 11:45; Stop at 11:44 Methimazole (Tapazole) 5 mg Q8HRS PO Last administered on 05/05/17 06:21; Start 05/04/17 at 14:00 Prednisone (Prednisone) 15 mg DAILY PO ; Start 05/05/17 at 14:00; Stop at 14:00; Status DC Carvedilol (Coreg) 3.125 mg BIDWMEALS PO Last administered on 05/04/17 19:45 ; Start 05/04/17 at 17:00; Stop 05/05/17 at 09:01; Status DC Furosemide (Lasix) 20 mg DAILY PO ; Start 05/05/17 at 09:00; Stop 05/05/17 at 09:00; Status DC Simvastatin (Zocor) 20 mg QHS PO Last administered on 05/04/17 19:37; Start 05/04/17 at 21:00 Tamsulosin HCl (Flomax) 0.4 mg DAILY PO ; Start 05/05/17 at 09:00 Pantoprazole Sodium (Protonix) 40 mg DAILYAC PO Last administered on 06:21; Start 05/04/17 at 14:00 Zolpidem Tartrate (Ambien) 5 mg PRN QHS PRN PO INSOMNIA Last administered on 19:36; Start 05/04/17 at 18:30 Active Scripts Active [place] 5-325 Tablet (Acetaminophen/Hydrocodone Bitart) 1 Each Tablet 1-2 Tab PO Q4-6HRS As needed for pain of broken ribs Hydrocodone-Apap 5-325 (Hydrocodone Bit/Acetaminophen) 1 Each Tablet 1 Tab PO PRN Q6HRS PRN Be careful as this medication may cause you to be drowsy or tired. Do not drive on this medication. Reported Prednisone 10 Mg Tablet 10 Mg PO DAILY Furosemide 20 Mg Tablet 1 Tab PO DAILY Tamsulosin Hcl 0.4 Mg Cap.er.24h 1 Cap PO DAILY Simvastatin 20 Mg Tablet 1 Tab PO QHS Next dose due: 08/11/15 @ 9 PM Clopidogrel (Clopidogrel Bisulfate) 75 Mg Tablet 1 Tab PO DAILY Next dose due: 08/12/15 @ 8 AM Aspirin Ec (Aspirin) 325 Mg Tablet.dr 1 Tab PO DAILY Next dose due: 08/12/15 @ 8 AM (take with breakfast) Spiriva (Tiotropium [place]) 18 Mcg Cap.w.dev 2 Inh IH DAILY Amiodarone Hcl 200 Mg Tablet 200 Mg PO DAILY Next dose due: 08/12/15 @ 9 AM Carvedilol 3.125 Mg Tablet 3.125 Mg PO BIDWMEALS Next dose due: 08/11/15 @ 5 PM (take with supper) Allergies Allergies: Coded Allergies: No Known Drug Allergies (Unverified , 03/06/15) ROS General: YES: Fatigue, Malaise, No: Night Sweats, Appetite, Other Cardiovascular: No Chest Pain, No Palpitations, No Orthopnea, No Edema, No Lt Headedness, No Other Physical Exam General: Alert, Oriented X3, Cooperative, No acute distress Lungs: Clear to auscultation Heart: Regular rate, Normal S1, Normal S2, No murmurs Extremities: No cyanosis, No edema, Normal pulses, No tenderness/swelling Neuro: Normal speech Psych/Mental Status: Mental status NL Vitals VITALS Vital Signs Date Time Temp Pulse Resp B/P (MAP) Pulse Ox O2 Delivery O2 Flow Rate FiO2 05/05/17 07:00 100.0 75 19 98/50 (66) 94 Room Air 100.0 Labs Labs Laboratory Tests Test 05/04/17 08:28 05/04/17 08:40 05/04/17 09:11 05/04/17 09:35 Influenza Type A Antigen Negative (NEGATIVE) Influenza Type B Antigen Negative (NEGATIVE) White Blood Count 14.3 x10^3/uL (4.0-11.0) Red Blood Count 3.82 x10^6/uL (4.30-5.70) Hemoglobin 11.9 g/dL (13.0-17.5) Hematocrit 35.1 % (39.0-53.0) Mean Corpuscular Volume 92 fL (79-100) Mean Corpuscular Hemoglobin 31 pg (25-35) Mean Corpuscular Hemoglobin Concent 34 g/dL (31-37) Red Cell Distribution Width 12.7 % (11.5-14.5) Platelet Count 387 x10^3/uL (140-400) Neutrophils (%) (Auto) 63 % (31-73) Lymphocytes (%) (Auto) 26 % (24-48) Monocytes (%) (Auto) 10 % (0-9) Eosinophils (%) (Auto) 1 % (0-3) Basophils (%) (Auto) 1 % (0-3) Neutrophils # (Auto) 9.0 x10^3uL (1.8-7.7) Lymphocytes # (Auto) 3.8 x10^3/uL (1.0-4.8) Monocytes # (Auto) 1.4 x10^3/uL (0.0-1.1) Eosinophils # (Auto) 0.1 x10^3/uL (0.0-0.7) Basophils # (Auto) 0.1 x10^3/uL (0.0-0.2) Lactic Acid Level 1.2 mmol/L (0.4-2.0) Urine Color [place] Urine Clarity Clear Urine pH 6.5 Urine Specific [place] 1.020 Urine Protein Negative mg/dL (NEG-TRACE) Urine Glucose (UA) Negative mg/dL (NEG) Urine Ketones (Stick) Negative mg/dL (NEG) Urine Blood Negative (NEG) Urine Nitrite Negative (NEG) Urine Bilirubin Negative (NEG) Urine Urobilinogen Dipstick 1.0 mg/dL (0.2 mg/dL) Urine Leukocyte Esterase Negative (NEG) Urine RBC 0 /HPF (0-2) Urine WBC Occ /HPF (0-4) Urine Squamous Epithelial Cells Occ /LPF Urine Amorphous Sediment Present /HPF Urine Bacteria 0 /HPF (0-FEW) Urine Hyaline Casts Few /HPF Urine Mucus Mod /LPF Sodium Level 127 mmol/L (136-145) Potassium Level 4.6 mmol/L (3.5-5.1) Chloride Level 95 mmol/L (98-107) Carbon Dioxide Level 27 mmol/L (21-32) Anion Gap 5 (6-14) Blood Urea Nitrogen 23 mg/dL (8-26) Creatinine 0.8 mg/dL (0.7-1.3) Estimated GFR (Cockcroft-Gault) 94.0 BUN/Creatinine Ratio 29 (6-20) Glucose Level 97 mg/dL (70-99) Calcium Level 9.0 mg/dL (8.5-10.1) Total Bilirubin 0.4 mg/dL (0.2-1.0) Aspartate Amino Transf (AST/SGOT) 15 U/L (15-37) Alanine Aminotransferase (ALT/SGPT) 17 U/L (16-63) Alkaline Phosphatase 56 U/L (46-116) Creatine Kinase 40 U/L (39-308) Creatine Kinase MB (Mass) 2.6 ng/mL (0.0-3.6) Creatine Kinase MB Relative Index % (0-4) Troponin I Quantitative 0.020 ng/mL (0.000-0.055) Total Protein 5.9 g/dL (6.4-8.2) Albumin 3.2 g/dL (3.4-5.0) Albumin/Globulin Ratio 1.2 (1.0-1.7) Thyroid Stimulating Hormone (TSH) 0.017 uIU/mL (0.358-3.74) Thyroxine (T4) 10.2 ug/dL (4.5-12.0) Test 05/04/17 09:58 05/04/17 17:25 05/04/17 23:30 05/05/17 03:55 Stool Occult Blood Positive (NEG) Troponin I Quantitative < 0.017 ng/mL (0.000-0.055) 0.021 ng/mL (0.000-0.055) White Blood Count 14.7 x10^3/uL (4.0-11.0) Red Blood Count 3.43 x10^6/uL (4.30-5.70) Hemoglobin 10.7 g/dL (13.0-17.5) Hematocrit 31.6 % (39.0-53.0) Mean Corpuscular Volume 92 fL (79-100) Mean Corpuscular Hemoglobin 31 pg (25-35) Mean Corpuscular Hemoglobin Concent 34 g/dL (31-37) Red Cell Distribution Width 13.0 % (11.5-14.5) Platelet Count 321 x10^3/uL (140-400) Neutrophils (%) (Auto) 72 % (31-73) Lymphocytes (%) (Auto) 18 % (24-48) Monocytes (%) (Auto) 9 % (0-9) Eosinophils (%) (Auto) 1 % (0-3) Basophils (%) (Auto) 0 % (0-3) Neutrophils # (Auto) 10.6 x10^3uL (1.8-7.7) Lymphocytes # (Auto) 2.6 x10^3/uL (1.0-4.8) Monocytes # (Auto) 1.4 x10^3/uL (0.0-1.1) Eosinophils # (Auto) 0.1 x10^3/uL (0.0-0.7) Basophils # (Auto) 0.0 x10^3/uL (0.0-0.2) Sodium Level 133 mmol/L (136-145) Potassium Level 4.2 mmol/L (3.5-5.1) Chloride Level 101 mmol/L (98-107) Carbon Dioxide Level 28 mmol/L (21-32) Anion Gap 4 (6-14) Blood Urea Nitrogen 14 mg/dL (8-26) Creatinine 0.8 mg/dL (0.7-1.3) Estimated GFR (Cockcroft-Gault) 94.0 BUN/Creatinine Ratio 18 (6-20) Glucose Level 84 mg/dL (70-99) Serum Osmolality 277 mOsm/Kg (279-304) Calcium Level 8.5 mg/dL (8.5-10.1) Total Bilirubin 0.6 mg/dL (0.2-1.0) Aspartate Amino Transf (AST/SGOT) 13 U/L (15-37) Alanine Aminotransferase (ALT/SGPT) 16 U/L (16-63) Alkaline Phosphatase 52 U/L (46-116) Total Protein 5.8 g/dL (6.4-8.2) Albumin 3.0 g/dL (3.4-5.0) Albumin/Globulin Ratio 1.1 (1.0-1.7) Laboratory Tests Test 05/04/17 17:25 05/04/17 23:30 05/05/17 03:55 Troponin I Quantitative < 0.017 ng/mL (0.000-0.055) 0.021 ng/mL (0.000-0.055) White Blood Count 14.7 x10^3/uL (4.0-11.0) Red Blood Count 3.43 x10^6/uL (4.30-5.70) Hemoglobin 10.7 g/dL (13.0-17.5) Hematocrit 31.6 % (39.0-53.0) Mean Corpuscular Volume 92 fL (79-100) Mean Corpuscular Hemoglobin 31 pg (25-35) Mean Corpuscular Hemoglobin Concent 34 g/dL (31-37) Red Cell Distribution Width 13.0 % (11.5-14.5) Platelet Count 321 x10^3/uL (140-400) Neutrophils (%) (Auto) 72 % (31-73) Lymphocytes (%) (Auto) 18 % (24-48) Monocytes (%) (Auto) 9 % (0-9) Eosinophils (%) (Auto) 1 % (0-3) Basophils (%) (Auto) 0 % (0-3) Neutrophils # (Auto) 10.6 x10^3uL (1.8-7.7) Lymphocytes # (Auto) 2.6 x10^3/uL (1.0-4.8) Monocytes # (Auto) 1.4 x10^3/uL (0.0-1.1) Eosinophils # (Auto) 0.1 x10^3/uL (0.0-0.7) Basophils # (Auto) 0.0 x10^3/uL (0.0-0.2) Sodium Level 133 mmol/L (136-145) Potassium Level 4.2 mmol/L (3.5-5.1) Chloride Level 101 mmol/L (98-107) Carbon Dioxide Level 28 mmol/L (21-32) Anion Gap 4 (6-14) Blood Urea Nitrogen 14 mg/dL (8-26) Creatinine 0.8 mg/dL (0.7-1.3) Estimated GFR (Cockcroft-Gault) 94.0 BUN/Creatinine Ratio 18 (6-20) Glucose Level 84 mg/dL (70-99) Serum Osmolality 277 mOsm/Kg (279-304) Calcium Level 8.5 mg/dL (8.5-10.1) Total Bilirubin 0.6 mg/dL (0.2-1.0) Aspartate Amino Transf (AST/SGOT) 13 U/L (15-37) Alanine Aminotransferase (ALT/SGPT) 16 U/L (16-63) Alkaline Phosphatase 52 U/L (46-116) Total Protein 5.8 g/dL (6.4-8.2) Albumin 3.0 g/dL (3.4-5.0) Albumin/Globulin Ratio 1.1 (1.0-1.7) Images Images Recent CT chest as outpt was normal per pt report Assessment/Plan Assessment/Plan Patient currently stable cardiac mckeon. VSS; patient without cardiac symptoms. Recent CT chest as outpatient was normal per pt report. Do not believe that cardiac issues are causing generalized weakness at this time. Will continue to hold home cardiac medications. Will look into [facility] for possible causes of weakness and adverse side effects. I greatly appreciate the consult and will continue to follow this patient throughout hospitalization. CRISTIAN REED MD May 05, 2017 10:53
--- NOTE | 2017-05-05 13:04 | PDOC ---
G I PROGRESS NOTE Reason for Follow-up Weight loss Subjective Slept well last night. In better spirits, otherwise about the same. Physical Exam Lungs clear. RRR Abdomen soft, not particularly tender. Review of Relevant I have reviewed the following items kathryn (where applicable) has been applied. Labs Laboratory Tests Test 05/04/17 08:28 05/04/17 08:40 05/04/17 09:11 05/04/17 09:35 Influenza Type A Antigen Negative (NEGATIVE) Influenza Type B Antigen Negative (NEGATIVE) White Blood Count 14.3 x10^3/uL (4.0-11.0) Red Blood Count 3.82 x10^6/uL (4.30-5.70) Hemoglobin 11.9 g/dL (13.0-17.5) Hematocrit 35.1 % (39.0-53.0) Mean Corpuscular Volume 92 fL (79-100) Mean Corpuscular Hemoglobin 31 pg (25-35) Mean Corpuscular Hemoglobin Concent 34 g/dL (31-37) Red Cell Distribution Width 12.7 % (11.5-14.5) Platelet Count 387 x10^3/uL (140-400) Neutrophils (%) (Auto) 63 % (31-73) Lymphocytes (%) (Auto) 26 % (24-48) Monocytes (%) (Auto) 10 % (0-9) Eosinophils (%) (Auto) 1 % (0-3) Basophils (%) (Auto) 1 % (0-3) Neutrophils # (Auto) 9.0 x10^3uL (1.8-7.7) Lymphocytes # (Auto) 3.8 x10^3/uL (1.0-4.8) Monocytes # (Auto) 1.4 x10^3/uL (0.0-1.1) Eosinophils # (Auto) 0.1 x10^3/uL (0.0-0.7) Basophils # (Auto) 0.1 x10^3/uL (0.0-0.2) Lactic Acid Level 1.2 mmol/L (0.4-2.0) Urine Color [place] Urine Clarity Clear Urine pH 6.5 Urine Specific [place] 1.020 Urine Protein Negative mg/dL (NEG-TRACE) Urine Glucose (UA) Negative mg/dL (NEG) Urine Ketones (Stick) Negative mg/dL (NEG) Urine Blood Negative (NEG) Urine Nitrite Negative (NEG) Urine Bilirubin Negative (NEG) Urine Urobilinogen Dipstick 1.0 mg/dL (0.2 mg/dL) Urine Leukocyte Esterase Negative (NEG) Urine RBC 0 /HPF (0-2) Urine WBC Occ /HPF (0-4) Urine Squamous Epithelial Cells Occ /LPF Urine Amorphous Sediment Present /HPF Urine Bacteria 0 /HPF (0-FEW) Urine Hyaline Casts Few /HPF Urine Mucus Mod /LPF Sodium Level 127 mmol/L (136-145) Potassium Level 4.6 mmol/L (3.5-5.1) Chloride Level 95 mmol/L (98-107) Carbon Dioxide Level 27 mmol/L (21-32) Anion Gap 5 (6-14) Blood Urea Nitrogen 23 mg/dL (8-26) Creatinine 0.8 mg/dL (0.7-1.3) Estimated GFR (Cockcroft-Gault) 94.0 BUN/Creatinine Ratio 29 (6-20) Glucose Level 97 mg/dL (70-99) Calcium Level 9.0 mg/dL (8.5-10.1) Total Bilirubin 0.4 mg/dL (0.2-1.0) Aspartate Amino Transf (AST/SGOT) 15 U/L (15-37) Alanine Aminotransferase (ALT/SGPT) 17 U/L (16-63) Alkaline Phosphatase 56 U/L (46-116) Creatine Kinase 40 U/L (39-308) Creatine Kinase MB (Mass) 2.6 ng/mL (0.0-3.6) Creatine Kinase MB Relative Index % (0-4) Troponin I Quantitative 0.020 ng/mL (0.000-0.055) Total Protein 5.9 g/dL (6.4-8.2) Albumin 3.2 g/dL (3.4-5.0) Albumin/Globulin Ratio 1.2 (1.0-1.7) Thyroid Stimulating Hormone (TSH) 0.017 uIU/mL (0.358-3.74) Thyroxine (T4) 10.2 ug/dL (4.5-12.0) Test 05/04/17 09:58 05/04/17 17:25 05/04/17 23:30 11/21/17 03:55 Stool Occult Blood Positive (NEG) Troponin I Quantitative < 0.017 ng/mL (0.000-0.055) 0.021 ng/mL (0.000-0.055) White Blood Count 14.7 x10^3/uL (4.0-11.0) Red Blood Count 3.43 x10^6/uL (4.30-5.70) Hemoglobin 10.7 g/dL (13.0-17.5) Hematocrit 31.6 % (39.0-53.0) Mean Corpuscular Volume 92 fL (79-100) Mean Corpuscular Hemoglobin 31 pg (25-35) Mean Corpuscular Hemoglobin Concent 34 g/dL (31-37) Red Cell Distribution Width 13.0 % (11.5-14.5) Platelet Count 321 x10^3/uL (140-400) Neutrophils (%) (Auto) 72 % (31-73) Lymphocytes (%) (Auto) 18 % (24-48) Monocytes (%) (Auto) 9 % (0-9) Eosinophils (%) (Auto) 1 % (0-3) Basophils (%) (Auto) 0 % (0-3) Neutrophils # (Auto) 10.6 x10^3uL (1.8-7.7) Lymphocytes # (Auto) 2.6 x10^3/uL (1.0-4.8) Monocytes # (Auto) 1.4 x10^3/uL (0.0-1.1) Eosinophils # (Auto) 0.1 x10^3/uL (0.0-0.7) Basophils # (Auto) 0.0 x10^3/uL (0.0-0.2) Sodium Level 133 mmol/L (136-145) Potassium Level 4.2 mmol/L (3.5-5.1) Chloride Level 101 mmol/L (98-107) Carbon Dioxide Level 28 mmol/L (21-32) Anion Gap 4 (6-14) Blood Urea Nitrogen 14 mg/dL (8-26) Creatinine 0.8 mg/dL (0.7-1.3) Estimated GFR (Cockcroft-Gault) 94.0 BUN/Creatinine Ratio 18 (6-20) Glucose Level 84 mg/dL (70-99) Serum Osmolality 277 mOsm/Kg (279-304) Calcium Level 8.5 mg/dL (8.5-10.1) Total Bilirubin 0.6 mg/dL (0.2-1.0) Aspartate Amino Transf (AST/SGOT) 13 U/L (15-37) Alanine Aminotransferase (ALT/SGPT) 16 U/L (16-63) Alkaline Phosphatase 52 U/L (46-116) Total Protein 5.8 g/dL (6.4-8.2) Albumin 3.0 g/dL (3.4-5.0) Albumin/Globulin Ratio 1.1 (1.0-1.7) Laboratory Tests Test 05/04/17 17:25 05/04/17 23:30 05/05/17 03:55 Troponin I Quantitative < 0.017 ng/mL (0.000-0.055) 0.021 ng/mL (0.000-0.055) White Blood Count 14.7 x10^3/uL (4.0-11.0) Red Blood Count 3.43 x10^6/uL (4.30-5.70) Hemoglobin 10.7 g/dL (13.0-17.5) Hematocrit 31.6 % (39.0-53.0) Mean Corpuscular Volume 92 fL (79-100) Mean Corpuscular Hemoglobin 31 pg (25-35) Mean Corpuscular Hemoglobin Concent 34 g/dL (31-37) Red Cell Distribution Width 13.0 % (11.5-14.5) Platelet Count 321 x10^3/uL (140-400) Neutrophils (%) (Auto) 72 % (31-73) Lymphocytes (%) (Auto) 18 % (24-48) Monocytes (%) (Auto) 9 % (0-9) Eosinophils (%) (Auto) 1 % (0-3) Basophils (%) (Auto) 0 % (0-3) Neutrophils # (Auto) 10.6 x10^3uL (1.8-7.7) Lymphocytes # (Auto) 2.6 x10^3/uL (1.0-4.8) Monocytes # (Auto) 1.4 x10^3/uL (0.0-1.1) Eosinophils # (Auto) 0.1 x10^3/uL (0.0-0.7) Basophils # (Auto) 0.0 x10^3/uL (0.0-0.2) Sodium Level 133 mmol/L (136-145) Potassium Level 4.2 mmol/L (3.5-5.1) Chloride Level 101 mmol/L (98-107) Carbon Dioxide Level 28 mmol/L (21-32) Anion Gap 4 (6-14) Blood Urea Nitrogen 14 mg/dL (8-26) Creatinine 0.8 mg/dL (0.7-1.3) Estimated GFR (Cockcroft-Gault) 94.0 BUN/Creatinine Ratio 18 (6-20) Glucose Level 84 mg/dL (70-99) Serum Osmolality 277 mOsm/Kg (279-304) Calcium Level 8.5 mg/dL (8.5-10.1) Total Bilirubin 0.6 mg/dL (0.2-1.0) Aspartate Amino Transf (AST/SGOT) 13 U/L (15-37) Alanine Aminotransferase (ALT/SGPT) 16 U/L (16-63) Alkaline Phosphatase 52 U/L (46-116) Total Protein 5.8 g/dL (6.4-8.2) Albumin 3.0 g/dL (3.4-5.0) Albumin/Globulin Ratio 1.1 (1.0-1.7) Microbiology 05/04/17 Blood Culture - Preliminary, Resulted NO GROWTH AFTER 1 DAY As I interpret thyroid functions, doesn't seem hyperthyroid unless T3 toxicosis. Note low sodiums. Medications Current Medications Sodium Chloride 1,000 ml @ 1,000 mls/hr 1X ONCE IV Last administered on 05/04 14:01; Start 05/04/17 at 10:30; Stop 05/04/17 at 11:29; Status DC Iohexol (Omnipaque 300 Mg/ml) 75 ml 1X ONCE IV Last administered on 11:32; Start 05/04/17 at 11:45; Stop 05/04/17 at 11:46; Status DC Info (Do NOT chart on this entry -- for MONITORING) 1 each PRN DAILY PRN MC SEE COMMENTS; Start 05/04/17 at 11:30; Stop 05/06/17 at 11:29 Ondansetron HCl (Zofran) 4 mg PRN Q8HRS PRN IV NAUSEA/VOMITING; Start at 11:45; Stop 05/05/17 at 11:44; Status DC Morphine Sulfate 2 mg PRN Q2HR PRN IV PAIN; Start 05/04/17 at 11:45; Stop at 11:44; Status DC Methimazole (Tapazole) 5 mg Q8HRS PO Last administered on 05/05/17 06:21; Start 05/04/17 at 14:00 Prednisone (Prednisone) 15 mg DAILY PO ; Start 05/05/17 at 14:00; Stop at 14:00; Status DC Carvedilol (Coreg) 3.125 mg BIDWMEALS PO Last administered on 05/04/17 19:45 ; Start 05/04/17 at 17:00; Stop 05/05/17 at 09:01; Status DC Furosemide (Lasix) 20 mg DAILY PO ; Start 05/05/17 at 09:00; Stop 05/05/17 at 09:00; Status DC Simvastatin (Zocor) 20 mg QHS PO Last administered on 05/04/17 19:37; Start 05/04/17 at 21:00 Tamsulosin HCl (Flomax) 0.4 mg DAILY PO ; Start 05/05/17 at 09:00 Pantoprazole Sodium (Protonix) 40 mg DAILYAC PO Last administered on 06:21; Start 05/04/17 at 14:00 Zolpidem Tartrate (Ambien) 5 mg PRN QHS PRN PO INSOMNIA Last administered on 19:36; Start 05/04/17 at 18:30 Active Scripts Active [place] 5-325 Tablet (Acetaminophen/Hydrocodone Bitart) 1 Each Tablet 1-2 Tab PO Q4-6HRS As needed for pain of broken ribs Hydrocodone-Apap 5-325 (Hydrocodone Bit/Acetaminophen) 1 Each Tablet 1 Tab PO PRN Q6HRS PRN Be careful as this medication may cause you to be drowsy or tired. Do not drive on this medication. Reported Prednisone 10 Mg Tablet 10 Mg PO DAILY Furosemide 20 Mg Tablet 1 Tab PO DAILY Tamsulosin Hcl 0.4 Mg Cap.er.24h 1 Cap PO DAILY Simvastatin 20 Mg Tablet 1 Tab PO QHS Next dose due: 2/27/16 @ 9 PM Clopidogrel (Clopidogrel Bisulfate) 75 Mg Tablet 1 Tab PO DAILY Next dose due: 08/12/15 @ 8 AM Aspirin Ec (Aspirin) 325 Mg Tablet.dr 1 Tab PO DAILY Next dose due: 08/12/15 @ 8 AM (take with breakfast) Spiriva (Tiotropium [place]) 18 Mcg Cap.w.dev 2 Inh IH DAILY Amiodarone Hcl 200 Mg Tablet 200 Mg PO DAILY Next dose due: 08/12/15 @ 9 AM Carvedilol 3.125 Mg Tablet 3.125 Mg PO BIDWMEALS Next dose due: 08/11/15 @ 5 PM (take with supper) Vitals/I & O Vital Sign - Last 24 Hours 05/04/17 05/04/17 05/04/17 05/04/17 15:00 19:00 19:45 23:00 Temp 98.9 97.8 97.8 98.9 97.8 97.8 Pulse 64 72 72 77 Resp 18 18 18 B/P (MAP) 95/53 (67) 96/54 (68) 96/54 96/49 (65) Pulse Ox 94 97 92 O2 Delivery Room Air Room Air Room Air 05/05/17 05/05/17 05/05/17 03:00 07:00 11:00 Temp 99.9 100.0 98.6 99.9 100.0 98.6 Pulse 77 75 66 Resp 18 19 19 B/P (MAP) 97/41 (59) 98/50 (66) 98/47 (64) Pulse Ox 91 94 97 O2 Delivery Room Air Room Air Room Air Intake and Output 05/04/17 05/04/17 05/05/17 15:00 23:00 07:00 Intake Total 525 ml 0 ml Balance 525 ml [address] chest earlier this year with ill-defined nodule. Problem List Problems Medical Problems: (1) Generalized weakness Status: Acute (2) Hyponatremia Status: Acute Assessment Most GI symptoms save anorexia seem more like IBS. Hyponatremia. SIADH? Lung tumor with Eaton-Lambert? Plan of Care Note Checking osmolalities. Will get true T3. MIRZA TUCKER MD May 05, 2017 13:04
[2017-05-05] MEDS ORDERED: predniSONE 5 MG TABLET PO SCH (14:00)
--- NOTE | 2017-05-05 14:09 | RAD ---
Thyroid ultrasound 05/05/2017 Indication: Hyperthyroidism. Comparison study: None Discussion: Right thyroid measures 4.2 x 2.0 x 2.1 cm. Left thyroid measures 3.1 x 1.8 x 1.3 cm. There is a 3 mm mixed echogenicity nodule in the mid right thyroid. Thyroid is mildly heterogenous throughout. Otherwise there is unremarkable in appearance. Blood flow to the thyroid gland is grossly unremarkable. No other focal lesions are identified. Impression: 1. Mixed echogenicity nodule in the right thyroid measuring 3 mm in diameter 2. Mild enlargement of the right thyroid with mild diffuse thyroid heterogeneity. No hyperemia is seen. Findings could be sequela of thyroiditis
[2017-05-05] MEDS: TAMSULOSIN 0.4 MG CAP.ER.24H. PO SCH (17:02)
[2017-05-05] MEDS: ZOLPIDEM 5 MG TABLET. PO PRN (20:40)
[2017-05-05] MEDS: SIMVASTATIN 20 MG TABLET PO SCH (20:40)
[2017-05-06 03:00] VITALS: BP 101/57
[2017-05-06 04:53] LABS: BASO # 0.1 x10^3/uL (0.0-0.2); BASO % 0 % (0-3); EOS % 1 % (0-3); HEMATOCRIT 30.2 % (39.0-53.0); HEMOGLOBIN 10.3 g/dL (13.0-17.5); LYMPH # 2.6 x10^3/uL (1.0-4.8); LYMPH % 19 % (24-48); MEAN CORPUSCULAR HEMOGLOBIN 31 pg (25-35); MEAN CORPUSCULAR HGB CONC 34 g/dL (31-37); MEAN CORPUSCULAR VOLUME 91 fL (79-100); MONO % 12 % (0-9); NEUT % 68 % (31-73); PLATELET COUNT 285 x10^3/uL (140-400); RED BLOOD COUNT 3.33 x10^6/uL (4.30-5.70); RED CELL DISTRIBUTION WIDTH 12.7 % (11.5-14.5); WHITE BLOOD COUNT 13.5 x10^3/uL (4.0-11.0)
[2017-05-06] MEDS: methIMAzole 10 MG TABLET PO SCH ×3 (05:08→21:17)
[2017-05-06 05:14] LABS: CALCIUM 8.4 mg/dL (8.5-10.1); CREATININE 0.6 mg/dL (0.7-1.3); POTASSIUM 3.9 mmol/L (3.5-5.1)
[2017-05-06 07:00] VITALS: BP 93/53
--- NOTE | 2017-05-06 08:35 | PDOC ---
SUBJECTIVE Subjective Not feeling well this AM. Still feeling very weak. Minimal cough. Does note dysuria. Neck pain OBJECTIVE Objective Reviewed. Vital Signs Vital Signs Date Time Temp Pulse Resp B/P (MAP) Pulse Ox O2 Delivery O2 Flow Rate FiO2 05/06/17 03:00 100.3 72 19 101/57 (72) 94 Room Air 100.3 05/05/17 23:00 98.4 84 19 107/63 (78) 96 Room Air 98.4 05/05/17 20:40 05/05/17 19:00 99.2 78 19 96/51 (66) 98 Room Air 99.2 05/05/17 15:00 98.8 70 19 103/58 (73) 96 Room Air 98.8 05/05/17 11:00 98.6 66 19 98/47 (64) 97 Room Air 98.6 I & O Intake and Output 05/06/17 07:00 Intake Total 1500 ml Balance 1500 ml Intake Oral 1500 ml # Voids 4 PHYSICAL EXAM Physical Exam Alert, oriented RRR Decreased breath sounds bilaterally, nonfocal, no crackles or wheezes Thin appearing Cooperative ASSESSMENT/PLAN Assessment/Plan Hyperthyroidism Weakness Weight loss Positive fecal occult Hyponatremia, improved Hypertension, now hypotensive, improving COPD Nicotine dependence Systolic and diastolic congestive heart failure PAD BPH Neck pain Holding home Lasix, carvedilol, aspirin, Plavix GI consulted for positive fecal occult. Recent colonoscopy was unremarkable. Recent CT chest as outpt was normal per pt report (will attempt to get records) Thyroid ultrasound points toward possible thyroiditis as cause Continue methimazole Prednisone d/c'd as pt denies improvement in pain after 5-7 days AM cortisol level ordered Nicotine patch as desired XR c spine due to neck pain UA/Cx due to dysuria and 100.3 temp at 0300 today PT consulted for weakness Problems: COMMENT Lab Laboratory Tests Test 05/05/17 11:00 05/05/17 13:49 05/06/17 04:15 Urine Random Sodium 78 mmol/L (Not Estab.) Free Triiodothyronine (T3) pg/mL 3.28 pg/mL (2.18-3.98) White Blood Count 13.5 x10^3/uL (4.0-11.0) Red Blood Count 3.33 x10^6/uL (4.30-5.70) Hemoglobin 10.3 g/dL (13.0-17.5) Hematocrit 30.2 % (39.0-53.0) Mean Corpuscular Volume 91 fL (79-100) Mean Corpuscular Hemoglobin 31 pg (25-35) Mean Corpuscular Hemoglobin Concent 34 g/dL (31-37) Red Cell Distribution Width 12.7 % (11.5-14.5) Platelet Count 285 x10^3/uL (140-400) Neutrophils (%) (Auto) 68 % (31-73) Lymphocytes (%) (Auto) 19 % (24-48) Monocytes (%) (Auto) 12 % (0-9) Eosinophils (%) (Auto) 1 % (0-3) Basophils (%) (Auto) 0 % (0-3) Neutrophils # (Auto) 9.2 x10^3uL (1.8-7.7) Lymphocytes # (Auto) 2.6 x10^3/uL (1.0-4.8) Monocytes # (Auto) 1.6 x10^3/uL (0.0-1.1) Eosinophils # (Auto) 0.1 x10^3/uL (0.0-0.7) Basophils # (Auto) 0.1 x10^3/uL (0.0-0.2) Sodium Level 132 mmol/L (136-145) Potassium Level 3.9 mmol/L (3.5-5.1) Chloride Level 100 mmol/L (98-107) Carbon Dioxide Level 26 mmol/L (21-32) Anion Gap 6 (6-14) Blood Urea Nitrogen 12 mg/dL (8-26) Creatinine 0.6 mg/dL (0.7-1.3) Estimated GFR (Cockcroft-Gault) 131.0 Glucose Level 96 mg/dL (70-99) Calcium Level 8.4 mg/dL (8.5-10.1) NGOZI MICHELE MD May 06, 2017 08:35
[2017-05-06] MEDS: BENZOCAINE/MENTHOL LOZENGE. PO PRN ×2 (08:48→21:30)
[2017-05-06] MEDS: TAMSULOSIN 0.4 MG CAP.ER.24H. PO SCH (08:48)
[2017-05-06] MEDS: PANTOPRAZOLE 40 MG TABLET.DR. PO SCH (08:48)
[2017-05-06] MEDS: ACETAMINOPHEN 325 MG TABLET. PO PRN ×2 (08:48→17:38)
--- NOTE | 2017-05-06 09:01 | PDOC ---
Subjective: Subjective: Feels terrible. Neck pain, burning w/ urination. Doesn't want to go home until he has answers. Objective: Vital Signs: Vital Signs Date Time Temp Pulse Resp B/P (MAP) Pulse Ox O2 Delivery O2 Flow Rate FiO2 05/06/17 07:00 98.8 71 18 93/53 (66) 95 Room Air 98.8 Labs: Laboratory Tests Test 05/05/17 11:00 05/05/17 13:49 05/06/17 04:15 Urine Osmolality Pending Urine Random Sodium 78 mmol/L Free Triiodothyronine (T3) pg/mL 3.28 pg/mL White Blood Count 13.5 x10^3/uL Red Blood Count 3.33 x10^6/uL Hemoglobin 10.3 g/dL Hematocrit 30.2 % Mean Corpuscular Volume 91 fL Mean Corpuscular Hemoglobin 31 pg Mean Corpuscular Hemoglobin Concent 34 g/dL Red Cell Distribution Width 12.7 % Platelet Count 285 x10^3/uL Neutrophils (%) (Auto) 68 % Lymphocytes (%) (Auto) 19 % Monocytes (%) (Auto) 12 % Eosinophils (%) (Auto) 1 % Basophils (%) (Auto) 0 % Neutrophils # (Auto) 9.2 x10^3uL Lymphocytes # (Auto) 2.6 x10^3/uL Monocytes # (Auto) 1.6 x10^3/uL Eosinophils # (Auto) 0.1 x10^3/uL Basophils # (Auto) 0.1 x10^3/uL Sodium Level 132 mmol/L Potassium Level 3.9 mmol/L Chloride Level 100 mmol/L Carbon Dioxide Level 26 mmol/L Anion Gap 6 Blood Urea Nitrogen 12 mg/dL Creatinine 0.6 mg/dL Estimated GFR (Cockcroft-Gault) 131.0 Glucose Level 96 mg/dL Calcium Level 8.4 mg/dL Imaging: Thyroid US Impression: 1. Mixed echogenicity nodule in the right thyroid measuring 3 mm in diameter 2. Mild enlargement of the right thyroid with mild diffuse thyroid heterogeneity. No hyperemia is seen. Findings could be sequela of thyroiditis. PE: GEN: NAD, sitting on edge of bed eating breakfast LUNGS: diminished HEART: RRR ABD: S/ND/NT NEURO/PSYCH: A & O 3 A/P: Neck pain, weakness Dysuria, fever Hyperthyroidism, abnormal thyroid US Hyponatremia Weight loss, anorexia Hemoccult positive stool w/ recent colonoscopy, on PPI -- Stable GI-mckeon. Continue workup per primary. URVASHI MARIN May 06, 2017 09:01
[2017-05-06 11:00] VITALS: BP 103/52
[2017-05-06 15:00] VITALS: BP 116/63
[2017-05-06 15:28] LABS: URINE OSMOLALITY 436 mOsmol/kg (.)
[2017-05-06] MEDS: IPRATRPIUM/ALBUTEROL 0.5/2.5MG 3 ML NEBU. NEB SCH ×2 (15:44→20:10)
--- NOTE | 2017-05-06 16:05 | RAD ---
EXAM: Cervical spine 2 views. HISTORY: Neck pain and stiffness. COMPARISON: None. FINDINGS: There is 3 mm anterolisthesis at C4-5. It measures 2 mm at C3-4 and C5-6. No fractures are identified. Degenerative disc disease is moderate to severe at C6-7 and mild to moderate from C4 through C6. There is diffuse moderate to severe facet osteoarthritis bilaterally. Carotid atherosclerotic calcifications are noted. Pacemaker leads and median sternotomy wires are partially visualized. IMPRESSION: 1. 2-3 mm anterolisthesis from C3 through C6. 2. Degenerative disc disease is moderate to severe at C6-7 and mild/moderate from C4 through C6.
--- NOTE | 2017-05-06 16:53 | PDOC ---
PROGRESS NOTES Subjective Subjective The patient is weak and has some GI complaints. He seems to be forgetful and mildly confused at times. No cardiac complaints at this point Objective Objective Vital Signs Date Time Temp Pulse Resp B/P (MAP) Pulse Ox O2 Delivery O2 Flow Rate FiO2 05/06/17 15:47 97 Room Air 05/06/17 11:00 98.1 60 18 103/52 (69) 98.1 Intake and Output 05/07/17 07:00 Intake Total 280 ml Balance 280 ml Intake Oral 280 ml Physical Exam Physical Exam No significant changes in cardiac exam Assessment Assessment The patient appears to be compensated cardiac-mckeon. Some of these problems are due to the hyponatremia and some to the thyroid disease. I agree with present plan. Comment Review of Relevant I have reviewed the following items kathryn (where applicable) has been applied. Labs Laboratory Tests Test 05/04/17 17:25 05/04/17 23:30 05/05/17 03:55 05/05/17 11:00 Troponin I Quantitative < 0.017 ng/mL (0.000-0.055) 0.021 ng/mL (0.000-0.055) White Blood Count 14.7 x10^3/uL (4.0-11.0) Red Blood Count 3.43 x10^6/uL (4.30-5.70) Hemoglobin 10.7 g/dL (13.0-17.5) Hematocrit 31.6 % (39.0-53.0) Mean Corpuscular Volume 92 fL (79-100) Mean Corpuscular Hemoglobin 31 pg (25-35) Mean Corpuscular Hemoglobin Concent 34 g/dL (31-37) Red Cell Distribution Width 13.0 % (11.5-14.5) Platelet Count 321 x10^3/uL (140-400) Neutrophils (%) (Auto) 72 % (31-73) Lymphocytes (%) (Auto) 18 % (24-48) Monocytes (%) (Auto) 9 % (0-9) Eosinophils (%) (Auto) 1 % (0-3) Basophils (%) (Auto) 0 % (0-3) Neutrophils # (Auto) 10.6 x10^3uL (1.8-7.7) Lymphocytes # (Auto) 2.6 x10^3/uL (1.0-4.8) Monocytes # (Auto) 1.4 x10^3/uL (0.0-1.1) Eosinophils # (Auto) 0.1 x10^3/uL (0.0-0.7) Basophils # (Auto) 0.0 x10^3/uL (0.0-0.2) Sodium Level 133 mmol/L (136-145) Potassium Level 4.2 mmol/L (3.5-5.1) Chloride Level 101 mmol/L (98-107) Carbon Dioxide Level 28 mmol/L (21-32) Anion Gap 4 (6-14) Blood Urea Nitrogen 14 mg/dL (8-26) Creatinine 0.8 mg/dL (0.7-1.3) Estimated GFR (Cockcroft-Gault) 94.0 BUN/Creatinine Ratio 18 (6-20) Glucose Level 84 mg/dL (70-99) Serum Osmolality 277 mOsm/Kg (279-304) Calcium Level 8.5 mg/dL (8.5-10.1) Total Bilirubin 0.6 mg/dL (0.2-1.0) Aspartate Amino Transf (AST/SGOT) 13 U/L (15-37) Alanine Aminotransferase (ALT/SGPT) 16 U/L (16-63) Alkaline Phosphatase 52 U/L (46-116) Total Protein 5.8 g/dL (6.4-8.2) Albumin 3.0 g/dL (3.4-5.0) Albumin/Globulin Ratio 1.1 (1.0-1.7) Urine Osmolality 436 mOsmol/kg (.) Urine Random Sodium 78 mmol/L (Not Estab.) Test 05/05/17 13:49 05/06/17 04:15 Free Triiodothyronine (T3) pg/mL 3.28 pg/mL (2.18-3.98) White Blood Count 13.5 x10^3/uL (4.0-11.0) Red Blood Count 3.33 x10^6/uL (4.30-5.70) Hemoglobin 10.3 g/dL (13.0-17.5) Hematocrit 30.2 % (39.0-53.0) Mean Corpuscular Volume 91 fL (79-100) Mean Corpuscular Hemoglobin 31 pg (25-35) Mean Corpuscular Hemoglobin Concent 34 g/dL (31-37) Red Cell Distribution Width 12.7 % (11.5-14.5) Platelet Count 285 x10^3/uL (140-400) Neutrophils (%) (Auto) 68 % (31-73) Lymphocytes (%) (Auto) 19 % (24-48) Monocytes (%) (Auto) 12 % (0-9) Eosinophils (%) (Auto) 1 % (0-3) Basophils (%) (Auto) 0 % (0-3) Neutrophils # (Auto) 9.2 x10^3uL (1.8-7.7) Lymphocytes # (Auto) 2.6 x10^3/uL (1.0-4.8) Monocytes # (Auto) 1.6 x10^3/uL (0.0-1.1) Eosinophils # (Auto) 0.1 x10^3/uL (0.0-0.7) Basophils # (Auto) 0.1 x10^3/uL (0.0-0.2) Sodium Level 132 mmol/L (136-145) Potassium Level 3.9 mmol/L (3.5-5.1) Chloride Level 100 mmol/L (98-107) Carbon Dioxide Level 26 mmol/L (21-32) Anion Gap 6 (6-14) Blood Urea Nitrogen 12 mg/dL (8-26) Creatinine 0.6 mg/dL (0.7-1.3) Estimated GFR (Cockcroft-Gault) 131.0 Glucose Level 96 mg/dL (70-99) Calcium Level 8.4 mg/dL (8.5-10.1) Cortisol AM Sample 9.3 ug/dL (4.3-22.4) Laboratory Tests Test 05/06/17 04:15 White Blood Count 13.5 x10^3/uL (4.0-11.0) Red Blood Count 3.33 x10^6/uL (4.30-5.70) Hemoglobin 10.3 g/dL (13.0-17.5) Hematocrit 30.2 % (39.0-53.0) Mean Corpuscular Volume 91 fL (79-100) Mean Corpuscular Hemoglobin 31 pg (25-35) Mean Corpuscular Hemoglobin Concent 34 g/dL (31-37) Red Cell Distribution Width 12.7 % (11.5-14.5) Platelet Count 285 x10^3/uL (140-400) Neutrophils (%) (Auto) 68 % (31-73) Lymphocytes (%) (Auto) 19 % (24-48) Monocytes (%) (Auto) 12 % (0-9) Eosinophils (%) (Auto) 1 % (0-3) Basophils (%) (Auto) 0 % (0-3) Neutrophils # (Auto) 9.2 x10^3uL (1.8-7.7) Lymphocytes # (Auto) 2.6 x10^3/uL (1.0-4.8) Monocytes # (Auto) 1.6 x10^3/uL (0.0-1.1) Eosinophils # (Auto) 0.1 x10^3/uL (0.0-0.7) Basophils # (Auto) 0.1 x10^3/uL (0.0-0.2) Sodium Level 132 mmol/L (136-145) Potassium Level 3.9 mmol/L (3.5-5.1) Chloride Level 100 mmol/L (98-107) Carbon Dioxide Level 26 mmol/L (21-32) Anion Gap 6 (6-14) Blood Urea Nitrogen 12 mg/dL (8-26) Creatinine 0.6 mg/dL (0.7-1.3) Estimated GFR (Cockcroft-Gault) 131.0 Glucose Level 96 mg/dL (70-99) Calcium Level 8.4 mg/dL (8.5-10.1) Cortisol AM Sample 9.3 ug/dL (4.3-22.4) Microbiology 05/04/17 Blood Culture - Preliminary, Resulted NO GROWTH AFTER 2 DAYS Medications Current Medications Sodium Chloride 1,000 ml @ 1,000 mls/hr 1X ONCE IV Last administered on 05/04 14:01; Start 05/04/17 at 10:30; Stop 05/04/17 at 11:29; Status DC Iohexol (Omnipaque 300 Mg/ml) 75 ml 1X ONCE IV Last administered on 11:32; Start 05/04/17 at 11:45; Stop 05/04/17 at 11:46; Status DC Info (Do NOT chart on this entry -- for MONITORING) 1 each PRN DAILY PRN MC SEE COMMENTS; Start 05/04/17 at 11:30; Stop 05/06/17 at 11:29; Status DC Ondansetron HCl (Zofran) 4 mg PRN Q8HRS PRN IV NAUSEA/VOMITING; Start at 11:45; Stop 05/05/17 at 11:44; Status DC Morphine Sulfate 2 mg PRN Q2HR PRN IV PAIN; Start 05/04/17 at 11:45; Stop at 11:44; Status DC Methimazole (Tapazole) 5 mg Q8HRS PO Last administered on 05/06/17 14:21; Start 05/04/17 at 14:00 Prednisone (Prednisone) 15 mg DAILY PO ; Start 05/05/17 at 14:00; Stop at 14:00; Status DC Carvedilol (Coreg) 3.125 mg BIDWMEALS PO Last administered on 05/04/17 19:45 ; Start 05/04/17 at 17:00; Stop 05/05/17 at 09:01; Status DC Furosemide (Lasix) 20 mg DAILY PO ; Start 05/05/17 at 09:00; Stop 05/05/17 at 09:00; Status DC Simvastatin (Zocor) 20 mg QHS PO Last administered on 05/05/17 20:40; Start 05/04/17 at 21:00 Tamsulosin HCl (Flomax) 0.4 mg DAILY PO Last administered on 05/06/17 08:48; Start 05/05/17 at 09:00 Pantoprazole Sodium (Protonix) 40 mg DAILYAC PO Last administered on 08:48; Start 05/04/17 at 14:00 Zolpidem Tartrate (Ambien) 5 mg PRN QHS PRN PO INSOMNIA Last administered on 20:40; Start 05/04/17 at 18:30 Acetaminophen (Tylenol) 650 mg PRN Q6HRS PRN PO pain Last administered on 05/06 08:48; Start 05/06/17 at 06:45 Throat Lozenges (Cepacol Sore Throat Lozenge) 1 liang PRN Q2HRS PRN PO SORE THROAT Last administered on 05/06/17 08:48; Start 05/06/17 at 08:30 Albuterol/ Ipratropium (Duoneb) 3 ml RTQID NEB Last administered on 05/06/17 15:44; Start 05/06/17 at 16:00 Active Scripts Active [place] 5-325 Tablet (Acetaminophen/Hydrocodone Bitart) 1 Each Tablet 1-2 Tab PO Q4-6HRS As needed for pain of broken ribs Hydrocodone-Apap 5-325 (Hydrocodone Bit/Acetaminophen) 1 Each Tablet 1 Tab PO PRN Q6HRS PRN Be careful as this medication may cause you to be drowsy or tired. Do not drive on this medication. Reported Prednisone 10 Mg Tablet 10 Mg PO DAILY Furosemide 20 Mg Tablet 1 Tab PO DAILY Tamsulosin Hcl 0.4 Mg Cap.er.24h 1 Cap PO DAILY Simvastatin 20 Mg Tablet 1 Tab PO QHS Next dose due: 08/11/15 @ 9 PM Clopidogrel (Clopidogrel Bisulfate) 75 Mg Tablet 1 Tab PO DAILY Next dose due: 08/12/15 @ 8 AM Aspirin Ec (Aspirin) 325 Mg Tablet.dr 1 Tab PO DAILY Next dose due: 08/12/15 @ 8 AM (take with breakfast) Spiriva (Tiotropium [place]) 18 Mcg Cap.w.dev 2 Inh IH DAILY Amiodarone Hcl 200 Mg Tablet 200 Mg PO DAILY Next dose due: 08/12/15 @ 9 AM Carvedilol 3.125 Mg Tablet 3.125 Mg PO BIDWMEALS Next dose due: 08/11/15 @ 5 PM (take with supper) Vitals/I & O Vital Sign - Last 24 Hours 05/05/17 05/05/17 05/05/17 05/06/17 19:00 20:40 23:00 03:00 Temp 99.2 98.4 100.3 99.2 98.4 100.3 Pulse 78 84 72 Resp 19 19 19 B/P (MAP) 96/51 (66) 107/63 (78) 101/57 (72) Pulse Ox 98 96 94 O2 Delivery Room Air Room Air Room Air 05/06/17 05/06/17 05/06/17 05/06/17 07:00 08:00 11:00 15:47 Temp 98.8 98.1 98.8 98.1 Pulse 71 60 Resp 18 18 B/P (MAP) 93/53 (66) 103/52 (69) Pulse Ox 95 96 97 O2 Delivery Room Air Room Air Room Air Room Air Intake and Output 05/06/17 05/06/17 05/07/17 15:00 23:00 07:00 Intake Total 280 ml Balance 280 ml CRISTIAN REED MD May 06, 2017 16:53
[2017-05-06 17:11] LABS: BILIRUBIN,URINE NEGATIVE (NEG); GLUCOSE,URINE NEGATIVE (NEG); NITRITE,URINE NEGATIVE (NEG); PROTEIN,URINE NEGATIVE (NEG-TRACE)
[2017-05-06 17:28] LABS: BACTERIA,URINE 0 /HPF (0-FEW)
[2017-05-06 19:00] VITALS: BP 92/55
[2017-05-06] MEDS: SIMVASTATIN 20 MG TABLET PO SCH (21:17)
[2017-05-06] MEDS: ZOLPIDEM 5 MG TABLET. PO PRN (21:21)
[2017-05-06 23:00] VITALS: BP 117/56
[2017-05-07] MEDS: ACETAMINOPHEN 325 MG TABLET. PO PRN ×2 (01:21→08:59)
[2017-05-07 03:00] VITALS: BP 111/57
[2017-05-07] MEDS: BENZOCAINE/MENTHOL LOZENGE. PO PRN (05:03)
[2017-05-07] MEDS: methIMAzole 10 MG TABLET PO SCH (05:03)
[2017-05-07 07:00] VITALS: BP 94/51
[2017-05-07] MEDS: IPRATRPIUM/ALBUTEROL 0.5/2.5MG 3 ML NEBU. NEB SCH ×2 (07:41→11:45)
[2017-05-07] MEDS: PANTOPRAZOLE 40 MG TABLET.DR. PO SCH (08:59)
[2017-05-07] MEDS: TAMSULOSIN 0.4 MG CAP.ER.24H. PO SCH (08:59)
[2017-05-07] MEDS ORDERED: HYDROcodone/APAP 5/325MG 1 TAB TABLET PO PRN (10:00)
[2017-05-07] MEDS ORDERED: ALPRAZolam 0.25 MG TABLET PO PRN (10:00)
--- NOTE | 2017-05-07 10:20 | PDOC ---
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
--- NOTE | 2017-05-07 10:26 | PDOC ---
PROGRESS NOTES Subjective Subjective Patient is having pain in the neck and head Objective Objective Vital Signs Date Time Temp Pulse Resp B/P (MAP) Pulse Ox O2 Delivery O2 Flow Rate FiO2 05/07/17 07:43 97 Room Air 05/07/17 07:00 99.0 80 18 94/51 (65) 99.0 Physical Exam Abdomen: Normal bowel sounds, Soft, No tenderness Heart: Regular rate, Normal S1, Normal S2 Extremities: No edema General: Alert, Oriented X3, Other HEENT: PERRLA Lungs: Clear to auscultation Neck: No JVD Neuro: Normal speech Psych/Mental Status: Other (anxious today ) Skin: No rashes Assessment Assessment Had a long discussion with the patient today, he has increased anxiety and lots of pain that is not controlled. Will start Lortab 5/325 MG Q 6HR PRN and alprazolam 0.25 MG Q 6HR PRN. Will also get a CT of the head and neck without contrast. Case was discussed with Dr. Wright, he agrees with the plan. Comment Review of Relevant I have reviewed the following items kathryn (where applicable) has been applied. Labs Laboratory Tests Test 05/05/17 11:00 05/05/17 13:49 05/06/17 04:15 05/06/17 16:00 Urine Osmolality 436 mOsmol/kg (.) Urine Random Sodium 78 mmol/L (Not Estab.) Free Triiodothyronine (T3) pg/mL 3.28 pg/mL (2.18-3.98) White Blood Count 13.5 x10^3/uL (4.0-11.0) Red Blood Count 3.33 x10^6/uL (4.30-5.70) Hemoglobin 10.3 g/dL (13.0-17.5) Hematocrit 30.2 % (39.0-53.0) Mean Corpuscular Volume 91 fL (79-100) Mean Corpuscular Hemoglobin 31 pg (25-35) Mean Corpuscular Hemoglobin Concent 34 g/dL (31-37) Red Cell Distribution Width 12.7 % (11.5-14.5) Platelet Count 285 x10^3/uL (140-400) Neutrophils (%) (Auto) 68 % (31-73) Lymphocytes (%) (Auto) 19 % (24-48) Monocytes (%) (Auto) 12 % (0-9) Eosinophils (%) (Auto) 1 % (0-3) Basophils (%) (Auto) 0 % (0-3) Neutrophils # (Auto) 9.2 x10^3uL (1.8-7.7) Lymphocytes # (Auto) 2.6 x10^3/uL (1.0-4.8) Monocytes # (Auto) 1.6 x10^3/uL (0.0-1.1) Eosinophils # (Auto) 0.1 x10^3/uL (0.0-0.7) Basophils # (Auto) 0.1 x10^3/uL (0.0-0.2) Sodium Level 132 mmol/L (136-145) Potassium Level 3.9 mmol/L (3.5-5.1) Chloride Level 100 mmol/L (98-107) Carbon Dioxide Level 26 mmol/L (21-32) Anion Gap 6 (6-14) Blood Urea Nitrogen 12 mg/dL (8-26) Creatinine 0.6 mg/dL (0.7-1.3) Estimated GFR (Cockcroft-Gault) 131.0 Glucose Level 96 mg/dL (70-99) Calcium Level 8.4 mg/dL (8.5-10.1) Cortisol AM Sample 9.3 ug/dL (4.3-22.4) Urine Collection Type Unknown Urine Color Yellow Urine Clarity Clear Urine pH 7.0 Urine Specific [place] 1.015 Urine Protein Negative mg/dL (NEG-TRACE) Urine Glucose (UA) Negative mg/dL (NEG) Urine Ketones (Stick) Negative mg/dL (NEG) Urine Blood Negative (NEG) Urine Nitrite Negative (NEG) Urine Bilirubin Negative (NEG) Urine Urobilinogen Dipstick 1.0 mg/dL (0.2 mg/dL) Urine Leukocyte Esterase Negative (NEG) Urine RBC 6-10 /HPF (0-2) Urine WBC 1-4 /HPF (0-4) Urine Bacteria 0 /HPF (0-FEW) Urine Hyaline Casts Many /HPF Urine Mucus Mod /LPF Laboratory Tests Test 05/06/17 16:00 Urine Collection Type Unknown Urine Color Yellow Urine Clarity Clear Urine pH 7.0 Urine Specific [place] 1.015 Urine Protein Negative mg/dL (NEG-TRACE) Urine Glucose (UA) Negative mg/dL (NEG) Urine Ketones (Stick) Negative mg/dL (NEG) Urine Blood Negative (NEG) Urine Nitrite Negative (NEG) Urine Bilirubin Negative (NEG) Urine Urobilinogen Dipstick 1.0 mg/dL (0.2 mg/dL) Urine Leukocyte Esterase Negative (NEG) Urine RBC 6-10 /HPF (0-2) Urine WBC 1-4 /HPF (0-4) Urine Bacteria 0 /HPF (0-FEW) Urine Hyaline Casts Many /HPF Urine Mucus Mod /LPF Microbiology 05/04/17 Blood Culture - Preliminary, Resulted NO GROWTH AFTER 3 DAYS Medications Current Medications Sodium Chloride 1,000 ml @ 1,000 mls/hr 1X ONCE IV Last administered on 05/04 14:01; Start 05/04/17 at 10:30; Stop 05/04/17 at 11:29; Status DC Iohexol (Omnipaque 300 Mg/ml) 75 ml 1X ONCE IV Last administered on 11:32; Start 05/04/17 at 11:45; Stop 05/04/17 at 11:46; Status DC Info (Do NOT chart on this entry -- for MONITORING) 1 each PRN DAILY PRN MC SEE COMMENTS; Start 05/04/17 at 11:30; Stop 05/06/17 at 11:29; Status DC Ondansetron HCl (Zofran) 4 mg PRN Q8HRS PRN IV NAUSEA/VOMITING; Start at 11:45; Stop 05/05/17 at 11:44; Status DC Morphine Sulfate 2 mg PRN Q2HR PRN IV PAIN; Start 05/04/17 at 11:45; Stop at 11:44; Status DC Methimazole (Tapazole) 5 mg Q8HRS PO Last administered on 05/07/17 05:03; Start 05/04/17 at 14:00; Stop 05/07/17 at 10:19; Status DC Prednisone (Prednisone) 15 mg DAILY PO ; Start 05/05/17 at 14:00; Stop at 14:00; Status DC Carvedilol (Coreg) 3.125 mg BIDWMEALS PO Last administered on 05/04/17 19:45 ; Start 05/04/17 at 17:00; Stop 05/05/17 at 09:01; Status DC Furosemide (Lasix) 20 mg DAILY PO ; Start 05/05/17 at 09:00; Stop 05/05/17 at 09:00; Status DC Simvastatin (Zocor) 20 mg QHS PO Last administered on 05/06/17 21:17; Start 05/04/17 at 21:00 Tamsulosin HCl (Flomax) 0.4 mg DAILY PO Last administered on 05/07/17 08:59; Start 05/05/17 at 09:00 Pantoprazole Sodium (Protonix) 40 mg DAILYAC PO Last administered on 08:59; Start 05/04/17 at 14:00 Zolpidem Tartrate (Ambien) 5 mg PRN QHS PRN PO INSOMNIA Last administered on 21:21; Start 05/04/17 at 18:30 Acetaminophen (Tylenol) 650 mg PRN Q6HRS PRN PO pain Last administered on 05/07 08:59; Start 05/06/17 at 06:45 Throat Lozenges (Cepacol Sore Throat Lozenge) 1 liang PRN Q2HRS PRN PO SORE THROAT Last administered on 05/07/17 05:03; Start 05/06/17 at 08:30 Albuterol/ Ipratropium (Duoneb) 3 ml RTQID NEB Last administered on 05/07/17 07:41; Start 05/06/17 at 16:00 Acetaminophen/ Hydrocodone Bitart (Lortab 5/325) 1 tab PRN Q6HRS PRN PO PAIN; Start 05/07/17 at 10:00 Alprazolam (Xanax) 0.25 mg PRN Q6HRS PRN PO ANXIETY / AGITATION; Start at 10:00 Methimazole (Tapazole) 10 mg DAILY08 PO ; Start 05/08/17 at 08:00 Active Scripts Active [place] 5-325 Tablet (Acetaminophen/Hydrocodone Bitart) 1 Each Tablet 1-2 Tab PO Q4-6HRS As needed for pain of broken ribs Hydrocodone-Apap 5-325 (Hydrocodone Bit/Acetaminophen) 1 Each Tablet 1 Tab PO PRN Q6HRS PRN Be careful as this medication may cause you to be drowsy or tired. Do not drive on this medication. Reported Prednisone 10 Mg Tablet 10 Mg PO DAILY Furosemide 20 Mg Tablet 1 Tab PO DAILY Tamsulosin Hcl 0.4 Mg Cap.er.24h 1 Cap PO DAILY Simvastatin 20 Mg Tablet 1 Tab PO QHS Next dose due: 08/11/15 @ 9 PM Clopidogrel (Clopidogrel Bisulfate) 75 Mg Tablet 1 Tab PO DAILY Next dose due: 08/12/15 @ 8 AM Aspirin Ec (Aspirin) 325 Mg Tablet.dr 1 Tab PO DAILY Next dose due: 08/12/15 @ 8 AM (take with breakfast) Spiriva (Tiotropium [place]) 18 Mcg Cap.w.dev 2 Inh IH DAILY Amiodarone Hcl 200 Mg Tablet 200 Mg PO DAILY Next dose due: 08/12/15 @ 9 AM Carvedilol 3.125 Mg Tablet 3.125 Mg PO BIDWMEALS Next dose due: 08/11/15 @ 5 PM (take with supper) Vitals/I & O Vital Sign - Last 24 Hours 05/06/17 05/06/17 05/06/17 05/06/17 11:00 15:00 15:47 19:00 Temp 98.1 97.5 98.2 98.1 97.5 98.2 Pulse 60 70 96 Resp 18 18 18 B/P (MAP) 103/52 (69) 116/63 (80) 92/55 (67) Pulse Ox 96 97 97 99 O2 Delivery Room Air Room Air Room Air Room Air 05/06/17 05/06/17 05/06/17 05/07/17 20:00 20:11 23:00 03:00 Temp 98.1 97.9 98.1 97.9 Pulse 87 87 Resp 18 18 B/P (MAP) 117/56 (76) 111/57 (75) Pulse Ox 96 95 98 O2 Delivery Room Air Room Air Room Air Room Air 05/07/17 05/07/17 07:00 07:43 Temp 99.0 99.0 Pulse 80 Resp 18 B/P (MAP) 94/51 (65) Pulse Ox 93 97 O2 Delivery Room Air Room Air CRISTIAN REED MD May 07, 2017 10:26
[2017-05-07 10:58] LABS: BASO # 0.1 x10^3/uL (0.0-0.2); BASO % 1 % (0-3); EOS % 2 % (0-3); HEMATOCRIT 31.3 % (39.0-53.0); HEMOGLOBIN 10.4 g/dL (13.0-17.5); LYMPH # 2.4 x10^3/uL (1.0-4.8); LYMPH % 21 % (24-48); MEAN CORPUSCULAR HEMOGLOBIN 30 pg (25-35); MEAN CORPUSCULAR HGB CONC 33 g/dL (31-37); MEAN CORPUSCULAR VOLUME 91 fL (79-100); MONO % 11 % (0-9); NEUT % 66 % (31-73); PLATELET COUNT 281 x10^3/uL (140-400); RED BLOOD COUNT 3.42 x10^6/uL (4.30-5.70); RED CELL DISTRIBUTION WIDTH 12.5 % (11.5-14.5); WHITE BLOOD COUNT 11.6 x10^3/uL (4.0-11.0)
[2017-05-07 11:00] VITALS: BP 103/60
--- NOTE | 2017-05-07 11:48 | RAD ---
CT HEAD AND CERVICAL SPINE WO History: Neck and head pain, DDD Technique: Noncontrast CT imaging was performed of the head and cervical spine, multiplanar reconstruction images submitted. Exposure: One or more of the following individualized dose reduction techniques were utilized for this exam: 1. Automated exposure control.2. Adjustment of the mA and/or KV according to patient size.3. Use of iterative reconstruction technique. Comparison: None Findings: Head CT: No acute intracranial hemorrhage is identified. Dobbs-white differentiation of the major vascular territories is preserved. There is no intra-axial mass effect, midline shift, extra axial fluid collection. No acute calvarial abnormality is identified. Mastoid air cells are aerated. Ventricular size is within normal limits. There is mild supratentorial involutional change. There is mild ill-defined low-density such as of the left frontal white matter. There is air-fluid level in the left maxillary sinus which is mostly opacified. Cervical spine CT: Cervical vertebral body stature is preserved. No acute cervical spine fracture is identified. There is more advanced degenerative disc disease C6-7, to a lesser C5-C6 and minimally at C3-4 and C4-5. There is minimal grade 1 anterior spondylolisthesis at C5-C6 and C3-C4. There is multilevel cervical facet degenerative change, also uncovertebral degenerative change. There is multilevel cervical neural foramina compromise, more significant narrowing bilaterally greater on the right at C3-C4, bilaterally at C6-C7, right greater than left C5-C6, and on the left at C4-5. There is atherosclerotic calcification of the carotid arteries in the neck bilaterally. There is disc osteophyte complex C6-7, likely central canal stenosis on the order of 7 to 8 mm at this level. Impression 1. No acute intracranial abnormality is identified. Mild ill-defined low-density such as of the left frontal white matter is nonspecific, may be due to chronic microvascular ischemic disease. 2. There is air-fluid level of the left maxillary sinus which is mostly opacified, could be due to acute sinusitis. 3. No acute cervical spine fracture is identified. 4. There is multilevel degenerative disc disease of the cervical spine greatest at C6-7. There is likely spinal stenosis on the order of 7 8-mm at C6-7. 5. Multilevel facet and uncovertebral degenerative change results in multilevel cervical neural foramina compromise.
[2017-05-08] MEDS ORDERED: methIMAzole 10 MG TABLET PO SCH (08:00)
--- NOTE | 2017-05-08 09:20 | PDOC ---
Provider Note Provider Note [id number] DIANA ELIAS MD May 08, 2017 09:19
--- NOTE | 2017-05-08 13:14 | DS ---
DATE OF DISCHARGE: 05/07/2017 HOSPITAL SUMMARY: A 77-year-old white male with chronic medical problems came in with fatigue, head and neck pain and general malaise. White count was mildly elevated at 14,300, hemoglobin stayed stable around 11, and sed rate was moderately high at 50. Chemistry profile showed low sodium of 127, but otherwise unremarkable with normal albumin/globulin ratio. TSH was low as it had been as an outpatient. TSH was 0.017, T4 was down to 10.2 and T3 down to 3.28, both improved versus outpatient results thanks to methimazole treatment. Urinalysis was unremarkable. Influenza tests were negative. Stool was positive for occult blood. Diuretics were held as possible relationship to the hyponatremia. Prednisone was stopped because he had been seeing no improvement as a trial for possible polymyalgia rheumatica. GI saw him in consultation. Because of the heme-positive stool, he had had a colonoscopy less than 2 years ago and no obvious overt upper GI symptoms. Sodium improved to [address] scan of the head was done because of the headaches and neck pain and changes of arthritis on plain neck films. There were no lesions inside the head. The cervical spine showed degenerative changes with no aggressive lesions or sign of bony infection. Possibility of temporal arteritis is raised given this somewhat tender temporal arteries and his higher sed rate with otherwise no good explanation. Surgeon was consulted, but was not able to see him prior to his dismissal. They will see him as an outpatient to consider temporal artery biopsy. He is stable and wants to be discharged at this time. FINAL DIAGNOSES: 1. Anemia, multifactorial, etiology undetermined. 2. Heme-positive stool, etiology undetermined. 3. Hyponatremia, likely secondary to diuretic use. 4. Hyperthyroidism, improved. Workup in progress. 5. Elevated sedimentation rate, etiology undetermined. OPERATIONS, PROCEDURES AND COMPLICATIONS: None. CONSULTATION: Dr. Moran. DISPOSITION: Home meds remain the same for now. He is off the prednisone at this time. We will consider surgical consultation for possible temporal artery biopsy if his headaches and neck pain persist. We need to follow the CBC regarding the anemia and heme-positive stool to see if upper endoscopy needs to be entertained as upper abdominal malignancy not impossible. He will use only Tylenol for pain relief at this time. I will see him in the office in 1 week for CBC and follow up on the elevated sed rate of 50. DIANA ELIAS MD DR: NAZANIN/santosh JOB#: [id number] / [id number]
== END 2017-05-07 14:30 | disposition home or self-care (01) | DRG 812 ==
LOC: ER 08:06 → 5 NORTH 11:15
PROVIDERS: ADMIT Family Medicine; ATTEND Family Medicine
DX: D64.9 Anemia, unspecified (principal); E87.1 Hypo-osmolality and hyponatremia; I11.0 Hypertensive heart disease with heart failure; I50.42 Chronic combined systolic (congestive) and diastolic (congestive) heart failure; J44.9 Chronic obstructive pulmonary disease, unspecified; E05.90 Thyrotoxicosis, unspecified without thyrotoxic crisis or storm; F17.210 Nicotine dependence, cigarettes, uncomplicated; F41.9 Anxiety disorder, unspecified; I25.10 Atherosclerotic heart disease of native coronary artery without angina pectoris; N40.1 Benign prostatic hyperplasia with lower urinary tract symptoms; T50.2X5A Adverse effect of carbonic-anhydrase inhibitors, benzothiadiazides and other diuretics, initial encounter; Z82.49 Family history of ischemic heart disease and other diseases of the circulatory system; Z86.73 Personal history of transient ischemic attack (TIA), and cerebral infarction without residual deficits; Z95.1 Presence of aortocoronary bypass graft; Z95.810 Presence of automatic (implantable) cardiac defibrillator; F32.9 Major depressive disorder, single episode, unspecified; G43.909 Migraine, unspecified, not intractable, without status migrainosus; M19.90 Unspecified osteoarthritis, unspecified site; Z87.01 Personal history of pneumonia (recurrent); G47.33 Obstructive sleep apnea (adult) (pediatric); I73.9 Peripheral vascular disease, unspecified; I25.2 Old myocardial infarction; K57.90 Diverticulosis of intestine, part unspecified, without perforation or abscess without bleeding
CPT/HCPCS: 36415; 70450; 71010; 72040; 72125; 74177; 76536; 80048; 80053; 81001; 82274; 82533; 82553; 83605; 83930; 83935; 84300; 84436; 84443; 84481; 84484; 85025; 85651; 87040; 87804; 93005; 94250; 94640; 94760; J7030; J7620; Q9967; 97140; 99285-25

== ENCOUNTER 2017-10-03 18:24 | Inpatient (IN) | payer MEDICARE ==
[2017-10-03] MEDS: IV NORMAL SALINE 1000ML BAG 1,000 ML IV ×3 (18:35→21:26)
[2017-10-03] MEDS: NALOXONE 2 MG/2 ML DISP.SYRIN. IV (18:58)
[2017-10-03] MEDS: methylPREDNISolone SOD SUCC PF 125 MG/2 ML VIAL. IV (19:00)
[2017-10-03] MEDS: ALBUTEROL SULFATE 2.5 MG/3 ML NEBU. INH (19:17)
[2017-10-03] MEDS: IPRATRPIUM/ALBUTEROL 0.5/2.5MG 3 ML NEBU. NEB (19:17)
[2017-10-03] MEDS ORDERED: levOFLOXacin PER PHARMACY. MC (19:30)
[2017-10-03] MEDS ORDERED: PIP/TAZO PER PHARMACY MC (19:30)
[2017-10-03 19:48] LABS: BASE EXCESS ABG -5 mmol/L (-3-3); HCO3 ABG 19 mmol/L (21-28); PO2 ABG 56 mmHg (65-108); SAT O2 ABG 88 % (92-99)
[2017-10-03 19:53] LABS: BASO % 0 % (0-3); EOS # 0.1 x10^3/uL (0.0-0.7); EOS % 0 % (0-3); HEMATOCRIT 29.3 % (39.0-53.0); LYMPH # 0.8 x10^3/uL (1.0-4.8); LYMPH % 3 % (24-48); MEAN CORPUSCULAR HEMOGLOBIN 31 pg (25-35); MEAN CORPUSCULAR HGB CONC 34 g/dL (31-37); MEAN CORPUSCULAR VOLUME 90 fL (79-100); MONO # 0.5 x10^3/uL (0.0-1.1); MONO % 2 % (0-9); NEUT # 22.7 x10^3uL (1.8-7.7); NEUT % 94 % (31-73); PLATELET COUNT 341 x10^3/uL (140-400); RED BLOOD COUNT 3.26 x10^6/uL (4.30-5.70); RED CELL DISTRIBUTION WIDTH 14.4 % (11.5-14.5); WHITE BLOOD COUNT 24.1 x10^3/uL (4.0-11.0)
[2017-10-03] MEDS: PIPERACILLIN/TAZOBACTAM 3.375 GM in IV NORMAL SALINE 50ML 50 ML IV (19:55)
[2017-10-03 19:57] LABS: ADD MAN DIFF? YES
[2017-10-03 20:01] LABS: INR 1.4 (0.8-1.1); PROTHROMBIN TIME PATIENT 16.3 SEC (11.7-14.0)
[2017-10-03 20:02] LABS: PARTIAL THROMBOPLASTIN TIME 30 SEC (24-38)
[2017-10-03 20:09] LABS: ANION GAP 8 (6-14); BLOOD UREA NITROGEN 46 mg/dL (8-26); BUN/CREATININE RATIO 31 (6-20); CALCIUM 8.3 mg/dL (8.5-10.1); CARBON DIOXIDE 25 mmol/L (21-32); CHLORIDE 92 mmol/L (98-107); CREATININE 1.5 mg/dL (0.7-1.3); GFR 45.5; GLUCOSE 78 mg/dL (70-99); POTASSIUM 4.9 mmol/L (3.5-5.1); SODIUM 125 mmol/L (136-145)
[2017-10-03 20:09] LABS: ETHANOL < 10 mg/dL (0-10)
[2017-10-03 20:15] LABS: TROPONINI < 0.017 ng/mL (0.000-0.055)
[2017-10-03 20:15] LABS: ALBUMIN/GLOBULIN RATIO 0.6 (1.0-1.7); ALK PHOS 100 U/L (46-116); ALT (SGPT) 12 U/L (16-63); AST (SGOT) 17 U/L (15-37); TOTAL BILIRUBIN 0.6 mg/dL (0.2-1.0); TOTAL PROTEIN 5.6 g/dL (6.4-8.2)
[2017-10-03 20:24] LABS: LACTIC ACID 3.2 mmol/L (0.4-2.0)
[2017-10-03 20:37] LABS: PCO2 ABG 33 mmHg (35-46); PH ABG 7.39 (7.35-7.45)
[2017-10-03] MEDS: IOHEXOL 300 MG/ML 100ML VIAL. IV (20:38)
[2017-10-03] MEDS ORDERED: CONTRAST GIVEN MC (20:45)
[2017-10-03 20:46] LABS: % BANDS 32 % (0-9); % LYMPHS 3 % (24-48); % MONOS 4 % (0-10); % SEGS 61 % (35-66)
[2017-10-03 20:48] LABS: PLT ESTIMATE ADEQUATE (ADEQUATE); POLYCHROMASIA SLIGHT; TOXIC GRANULATION MOD; TOXIC VACUOLATION SLIGHT
[2017-10-03 20:49] LABS: NT-PRO BNP 2348 pg/mL (0-449)
[2017-10-03] MEDS ORDERED: NITROGLYCERIN SUBLINGUAL 0.4 MG BOTTLE OF 25. SL (21:45)
[2017-10-03] MEDS ORDERED: ONDANSETRON PF 4 MG/2 ML VIAL. IV (21:45)
[2017-10-03] MEDS ORDERED: ACETAMINOPHEN 325 MG TABLET. PO (21:45)
[2017-10-03 22:10] LABS: FECAL OB PT NEGATIVE (NEG); NEG OBC FOB NEG; POS OBC FOB POS
[2017-10-03] MEDS: NOREPINEPHRIN PREMIX 250 ML IV (22:15)
[2017-10-03 22:25] LABS: INFLUENZA A PATIENT NEGATIVE (NEGATIVE); INFLUENZA B PATIENT NEGATIVE (NEGATIVE); OBC FLU VALID
[2017-10-04] MEDS: PIPERACILLIN/TAZOBACTAM 3.375 GM in IV NORMAL SALINE 50ML 50 ML IV ×4 (01:23→18:35)
[2017-10-04 01:53] LABS: LACTIC ACID 1.7 mmol/L (0.4-2.0)
[2017-10-04 02:13] LABS: TROPONINI < 0.017 ng/mL (0.000-0.055)
[2017-10-04 04:45] LABS: TROPONINI < 0.017 ng/mL (0.000-0.055)
[2017-10-04 06:27] LABS: ADD MAN DIFF? NO
[2017-10-04 06:33] LABS: BASO # 0.2 x10^3/uL (0.0-0.2); BASO % 1 % (0-3); EOS % 0 % (0-3); HEMATOCRIT 29.3 % (39.0-53.0); HEMOGLOBIN 9.8 g/dL (13.0-17.5); LYMPH # 0.4 x10^3/uL (1.0-4.8); LYMPH % 1 % (24-48); MEAN CORPUSCULAR HEMOGLOBIN 30 pg (25-35); MEAN CORPUSCULAR HGB CONC 34 g/dL (31-37); MEAN CORPUSCULAR VOLUME 90 fL (79-100); MONO # 0.2 x10^3/uL (0.0-1.1); MONO % 1 % (0-9); NEUT # 32.8 x10^3uL (1.8-7.7); NEUT % 98 % (31-73); PLATELET COUNT 363 x10^3/uL (140-400); RED BLOOD COUNT 3.28 x10^6/uL (4.30-5.70); RED CELL DISTRIBUTION WIDTH 14.4 % (11.5-14.5); WHITE BLOOD COUNT 33.6 x10^3/uL (4.0-11.0)
[2017-10-04 06:57] LABS: ANION GAP 10 (6-14); BLOOD UREA NITROGEN 35 mg/dL (8-26); CARBON DIOXIDE 24 mmol/L (21-32); CHLORIDE 99 mmol/L (98-107); CREATININE 1.1 mg/dL (0.7-1.3); GFR 65.1; GLUCOSE 142 mg/dL (70-99); POTASSIUM 4.9 mmol/L (3.5-5.1); SODIUM 133 mmol/L (136-145)
[2017-10-04] MEDS: IPRATRPIUM/ALBUTEROL 0.5/2.5MG 3 ML NEBU. NEB ×4 (07:58→20:40)
[2017-10-04 08:09] LABS: BASE EXCESS ABG -3 mmol/L (-3-3); HCO3 ABG 21 mmol/L (21-28); PCO2 ABG 32 mmHg (35-46); PH ABG 7.42 (7.35-7.45); PO2 ABG 77 mmHg (65-108); SAT O2 ABG 95 % (92-99)
[2017-10-04 08:15] LABS: FIO2 ABG 40%
[2017-10-04 08:20] LABS: LACTATE DEHYDROGENASE 190 U/L (85-227)
[2017-10-04 09:17] LABS: PROCALCITONIN 3.36 ng/mL (0.00-0.10)
[2017-10-04 09:31] LABS: FREE T4 0.95 ng/dL (0.76-1.46)
[2017-10-04 09:32] LABS: MYCOPLASMA PATIENT NEGATIVE (NEGATIVE); NEGATIVE OBC MYCO NEG; POSITIVE OBC MYCO POS
[2017-10-04] MEDS: TAMSULOSIN 0.4 MG CAP.ER.24H. PO (10:00)
[2017-10-04] MEDS: methIMAzole 10 MG TABLET PO (10:00)
[2017-10-04] MEDS: DOXYCYCLINE HYCLATE 100 MG in IV DEXTROSE 5% 100 ML IV ×2 (10:26→20:42)
[2017-10-04] MEDS: methylPREDNISolone SOD SUCC PF 40 MG/ML VIAL. IV ×2 (14:00→21:30)
[2017-10-04 15:15] LABS: MRSA BY PCR Negative (Negative)
[2017-10-04] MEDS: ENOXAPARIN 40 MG/0.4 ML SYRINGE. SQ (16:00)
[2017-10-04] MEDS: BUDESONIDE 0.5 MG/2 ML NEBU. NEB (20:39)
[2017-10-04] MEDS: MORPHINE SULFATE 4 MG/ML DISP.SYRIN. IV (21:38)
[2017-10-05] MEDS: PIPERACILLIN/TAZOBACTAM 3.375 GM in IV NORMAL SALINE 50ML 50 ML IV ×4 (00:50→18:19)
[2017-10-05 02:08] LABS: BILIRUBIN,URINE NEGATIVE (NEG); CLARITY,URINE CLEAR; COLOR,URINE YELLOW; GLUCOSE,URINE NEGATIVE (NEG); NITRITE,URINE NEGATIVE (NEG); PROTEIN,URINE 30 mg/dL (NEG-TRACE)
[2017-10-05 02:15] LABS: BARBITURATES NEG (NEG); BENZODIAZEPINES NEG (NEG); CANNABINOIDS NEG (NEG); COCAINE NEG (NEG); METHADONE NEG (NEG); OPIATES POS (NEG); PHENCYCLIDINE NEG (NEG)
[2017-10-05 02:35] LABS: AMPHETAMINE/METHAMPHETAMINE NEG (NEG); ETHANOL, URINE NEG (NEG)
[2017-10-05 02:37] LABS: AMORPHOUS SEDIMENT,UR PRESENT /HPF; BACTERIA,URINE 0 /HPF (0-FEW); SQUAMOUS EPITHELIAL CELL,UR OCC /LPF
[2017-10-05] MEDS: ALBUTEROL SULFATE 2.5 MG/3 ML NEBU. NEB (05:00)
[2017-10-05] MEDS: methylPREDNISolone SOD SUCC PF 40 MG/ML VIAL. IV ×3 (06:25→21:29)
[2017-10-05] MEDS: TAMSULOSIN 0.4 MG CAP.ER.24H. PO ×2 (07:41→09:34)
[2017-10-05] MEDS ORDERED: LIDOCAINE WITH 8.4% SOD BICARB 3 ML DISP.SYRIN. (08:03)
[2017-10-05] MEDS ORDERED: fentaNYL PF VIAL 100 MCG/2 ML VIAL (08:25)
[2017-10-05] MEDS ORDERED: MIDAZOLAM HCL/PF 2 MG/2 ML VIAL. (08:25)
[2017-10-05] MEDS: LIDOCAINE WITH 8.4% SOD BICARB 3 ML DISP.SYRIN. INJ (09:00)
[2017-10-05 09:06] LABS: ADD MAN DIFF? NO; BASO % 0 % (0-3); EOS % 0 % (0-3); HEMATOCRIT 30.2 % (39.0-53.0); HEMOGLOBIN 10.3 g/dL (13.0-17.5); LYMPH # 0.8 x10^3/uL (1.0-4.8); LYMPH % 3 % (24-48); MEAN CORPUSCULAR HEMOGLOBIN 30 pg (25-35); MEAN CORPUSCULAR HGB CONC 34 g/dL (31-37); MEAN CORPUSCULAR VOLUME 89 fL (79-100); MONO # 0.9 x10^3/uL (0.0-1.1); MONO % 3 % (0-9); NEUT # 28.1 x10^3uL (1.8-7.7); NEUT % 94 % (31-73); PLATELET COUNT 402 x10^3/uL (140-400); RED BLOOD COUNT 3.41 x10^6/uL (4.30-5.70); RED CELL DISTRIBUTION WIDTH 14.8 % (11.5-14.5); WHITE BLOOD COUNT 29.9 x10^3/uL (4.0-11.0)
[2017-10-05 09:14] LABS: ANION GAP 7 (6-14); BLOOD UREA NITROGEN 27 mg/dL (8-26); CALCIUM 8.5 mg/dL (8.5-10.1); CARBON DIOXIDE 26 mmol/L (21-32); CHLORIDE 101 mmol/L (98-107); CREATININE 0.9 mg/dL (0.7-1.3); GLUCOSE 178 mg/dL (70-99); POTASSIUM 4.3 mmol/L (3.5-5.1); SODIUM 134 mmol/L (136-145)
[2017-10-05] MEDS: DOXYCYCLINE HYCLATE 100 MG in IV DEXTROSE 5% 100 ML IV ×2 (09:34→20:29)
[2017-10-05] MEDS: methIMAzole 10 MG TABLET PO (09:34)
[2017-10-05] MEDS: FAMOTIDINE 20 MG TABLET. PO ×2 (09:37→20:28)
[2017-10-05] MEDS: BUDESONIDE 0.5 MG/2 ML NEBU. NEB ×2 (09:45→20:04)
[2017-10-05 11:56] LABS: BF COLOR YELLOW; BF SOURCE PLEURAL
[2017-10-05 11:57] LABS: BF CLARITY HAZY; BF MON % 6 %; BF PMN % 94 %; BF RBC COUNT 3685 /cmm; BF WBC COUNT 2023 /cmm
[2017-10-05] MEDS: IPRATRPIUM/ALBUTEROL 0.5/2.5MG 3 ML NEBU. NEB (13:06)
[2017-10-05] MEDS: ENOXAPARIN 40 MG/0.4 ML SYRINGE. SQ (18:19)
[2017-10-05] MEDS: SODIUM CHLORIDE 0.65% NASAL SPRAY 45ML BOTTLE. NS (20:28)
[2017-10-05] MEDS: HYDROcodone/APAP 5/325MG 1 TAB TABLET PO (20:29)
[2017-10-06] MEDS: PIPERACILLIN/TAZOBACTAM 3.375 GM in IV NORMAL SALINE 50ML 50 ML IV ×5 (00:16→23:55)
[2017-10-06] MEDS: HYDROcodone/APAP 5/325MG 1 TAB TABLET PO ×4 (01:52→20:40)
[2017-10-06] MEDS: methylPREDNISolone SOD SUCC PF 40 MG/ML VIAL. IV ×3 (06:03→23:55)
[2017-10-06] MEDS: BUDESONIDE 0.5 MG/2 ML NEBU. NEB ×2 (07:25→16:13)
[2017-10-06] MEDS: FAMOTIDINE 20 MG TABLET. PO ×2 (08:09→20:40)
[2017-10-06] MEDS: methIMAzole 10 MG TABLET PO (08:09)
[2017-10-06 10:22] LABS: BODY FLUID LDH 938 IU/L (.)
[2017-10-06 10:22] LABS: BODY FLUID GLUCOSE 169 mg/dL (.)
[2017-10-06] MEDS: LACTOBACILLUS RHAMNOSUS GG 1 CAPSULE. PO ×2 (10:59→20:42)
[2017-10-06] MEDS: DOXYCYCLINE HYCLATE 100 MG in IV DEXTROSE 5% 100 ML IV ×2 (11:00→20:41)
[2017-10-06] MEDS: ENOXAPARIN 40 MG/0.4 ML SYRINGE. SQ (16:12)
[2017-10-06] MEDS: IPRATRPIUM/ALBUTEROL 0.5/2.5MG 3 ML NEBU. NEB (20:14)
[2017-10-07] MEDS: HYDROcodone/APAP 5/325MG 1 TAB TABLET PO ×3 (02:29→16:54)
[2017-10-07] MEDS: methylPREDNISolone SOD SUCC PF 40 MG/ML VIAL. IV ×3 (06:00→21:16)
[2017-10-07] MEDS: PIPERACILLIN/TAZOBACTAM 3.375 GM in IV NORMAL SALINE 50ML 50 ML IV ×4 (06:00→23:06)
[2017-10-07] MEDS: IPRATRPIUM/ALBUTEROL 0.5/2.5MG 3 ML NEBU. NEB ×4 (08:00→19:18)
[2017-10-07] MEDS: BUDESONIDE 0.5 MG/2 ML NEBU. NEB ×3 (08:00→19:18)
[2017-10-07] MEDS: methIMAzole 10 MG TABLET PO (08:29)
[2017-10-07] MEDS: FAMOTIDINE 20 MG TABLET. PO ×2 (08:30→21:16)
[2017-10-07] MEDS: TAMSULOSIN 0.4 MG CAP.ER.24H. PO (08:30)
[2017-10-07] MEDS: LACTOBACILLUS RHAMNOSUS GG 1 CAPSULE. PO ×2 (08:30→21:16)
[2017-10-07 11:51] LABS: ADD MAN DIFF? NO
[2017-10-07 11:57] LABS: BASO % 0 % (0-3); EOS % 0 % (0-3); HEMATOCRIT 32.7 % (39.0-53.0); HEMOGLOBIN 10.9 g/dL (13.0-17.5); LYMPH % 5 % (24-48); MEAN CORPUSCULAR HEMOGLOBIN 30 pg (25-35); MEAN CORPUSCULAR HGB CONC 33 g/dL (31-37); MEAN CORPUSCULAR VOLUME 89 fL (79-100); MONO # 0.1 x10^3/uL (0.0-1.1); MONO % 0 % (0-9); NEUT # 20.6 x10^3uL (1.8-7.7); NEUT % 95 % (31-73); PLATELET COUNT 381 x10^3/uL (140-400); RED BLOOD COUNT 3.67 x10^6/uL (4.30-5.70); RED CELL DISTRIBUTION WIDTH 14.6 % (11.5-14.5); WHITE BLOOD COUNT 21.6 x10^3/uL (4.0-11.0)
[2017-10-07 12:19] LABS: ALBUMIN 1.7 g/dL (3.4-5.0); ALBUMIN/GLOBULIN RATIO 0.5 (1.0-1.7); ALK PHOS 71 U/L (46-116); ALT (SGPT) 25 U/L (16-63); ANION GAP 7 (6-14); AST (SGOT) 20 U/L (15-37); BLOOD UREA NITROGEN 27 mg/dL (8-26); BUN/CREATININE RATIO 34 (6-20); CALCIUM 8.3 mg/dL (8.5-10.1); CARBON DIOXIDE 28 mmol/L (21-32); CHLORIDE 98 mmol/L (98-107); CREATININE 0.8 mg/dL (0.7-1.3); GLUCOSE 188 mg/dL (70-99); POTASSIUM 4.6 mmol/L (3.5-5.1); SODIUM 133 mmol/L (136-145); TOTAL BILIRUBIN 0.5 mg/dL (0.2-1.0); TOTAL PROTEIN 4.8 g/dL (6.4-8.2)
[2017-10-07] MEDS: MIDAZOLAM HCL/PF 5 MG/5 ML VIAL. IV (13:35)
[2017-10-07] MEDS: MEPERIDINE PF 25 MG/ML VIAL. IV (13:37)
[2017-10-07 14:34] LABS: LEGIONELLA AG UR Negative (Negative)
[2017-10-07] MEDS: ENOXAPARIN 40 MG/0.4 ML SYRINGE. SQ (16:09)
[2017-10-07 16:20] LABS: SPECIMEN SOURCE Urine (.); STREP PNEUMO ANTIGEN Negative (Negative)
[2017-10-08] MEDS: HYDROcodone/APAP 5/325MG 1 TAB TABLET PO ×4 (01:32→20:58)
[2017-10-08] MEDS: PIPERACILLIN/TAZOBACTAM 3.375 GM in IV NORMAL SALINE 50ML 50 ML IV ×3 (06:02→17:55)
[2017-10-08] MEDS: methylPREDNISolone SOD SUCC PF 40 MG/ML VIAL. IV ×2 (06:02→20:53)
[2017-10-08] MEDS: BUDESONIDE 0.5 MG/2 ML NEBU. NEB ×2 (08:02→20:09)
[2017-10-08] MEDS: IPRATRPIUM/ALBUTEROL 0.5/2.5MG 3 ML NEBU. NEB ×5 (08:02→20:09)
[2017-10-08 08:58] LABS: HEMATOCRIT 32.9 % (39.0-53.0); HEMOGLOBIN 11.3 g/dL (13.0-17.5); MEAN CORPUSCULAR HEMOGLOBIN 31 pg (25-35); MEAN CORPUSCULAR HGB CONC 34 g/dL (31-37); MEAN CORPUSCULAR VOLUME 89 fL (79-100); PLATELET COUNT 388 x10^3/uL (140-400); RED CELL DISTRIBUTION WIDTH 14.4 % (11.5-14.5)
[2017-10-08 09:02] LABS: ALBUMIN 1.8 g/dL (3.4-5.0); ALBUMIN/GLOBULIN RATIO 0.5 (1.0-1.7); ALK PHOS 68 U/L (46-116); ALT (SGPT) 21 U/L (16-63); ANION GAP 6 (6-14); AST (SGOT) 18 U/L (15-37); BLOOD UREA NITROGEN 26 mg/dL (8-26); BUN/CREATININE RATIO 29 (6-20); CALCIUM 8.4 mg/dL (8.5-10.1); CARBON DIOXIDE 27 mmol/L (21-32); CHLORIDE 98 mmol/L (98-107); CREATININE 0.9 mg/dL (0.7-1.3); GLUCOSE 194 mg/dL (70-99); POTASSIUM 4.5 mmol/L (3.5-5.1); SODIUM 131 mmol/L (136-145); TOTAL BILIRUBIN 0.7 mg/dL (0.2-1.0); TOTAL PROTEIN 5.2 g/dL (6.4-8.2)
[2017-10-08] MEDS: methIMAzole 10 MG TABLET PO (09:42)
[2017-10-08] MEDS: FAMOTIDINE 20 MG TABLET. PO ×2 (09:42→20:52)
[2017-10-08] MEDS: LACTOBACILLUS RHAMNOSUS GG 1 CAPSULE. PO ×2 (09:42→20:52)
[2017-10-08] MEDS: TAMSULOSIN 0.4 MG CAP.ER.24H. PO (09:42)
[2017-10-08] MEDS: ENOXAPARIN 40 MG/0.4 ML SYRINGE. SQ (15:27)
[2017-10-09] MEDS: PIPERACILLIN/TAZOBACTAM 3.375 GM in IV NORMAL SALINE 50ML 50 ML IV ×5 (00:05→23:26)
[2017-10-09] MEDS: HYDROcodone/APAP 5/325MG 1 TAB TABLET PO ×3 (02:09→14:45)
[2017-10-09] MEDS: FAMOTIDINE 20 MG TABLET. PO ×2 (08:14→21:17)
[2017-10-09] MEDS: LACTOBACILLUS RHAMNOSUS GG 1 CAPSULE. PO ×2 (08:14→21:17)
[2017-10-09] MEDS: TAMSULOSIN 0.4 MG CAP.ER.24H. PO (08:14)
[2017-10-09] MEDS: methylPREDNISolone SOD SUCC PF 40 MG/ML VIAL. IV ×2 (08:16→21:17)
[2017-10-09] MEDS: methIMAzole 10 MG TABLET PO (08:16)
[2017-10-09] MEDS: IPRATRPIUM/ALBUTEROL 0.5/2.5MG 3 ML NEBU. NEB ×4 (08:30→19:36)
[2017-10-09] MEDS: BUDESONIDE 0.5 MG/2 ML NEBU. NEB ×2 (08:30→19:36)
[2017-10-09] MEDS: GABAPENTIN 100 MG CAPSULE. PO ×3 (11:32→21:17)
[2017-10-09] MEDS: DULoxetine HCL 30 MG CAPSULE.DR PO (11:32)
[2017-10-09] MEDS: ENOXAPARIN 40 MG/0.4 ML SYRINGE. SQ (16:46)
[2017-10-09] MEDS: FLUCONAZOLE 100 MG TABLET. PO (17:36)
[2017-10-09] MEDS: CARVEDILOL 3.125 MG TABLET. PO (18:08)
[2017-10-10] MEDS: HYDROcodone/APAP 5/325MG 1 TAB TABLET PO ×4 (04:00→23:03)
[2017-10-10] MEDS: PIPERACILLIN/TAZOBACTAM 3.375 GM in IV NORMAL SALINE 50ML 50 ML IV (05:45)
[2017-10-10] MEDS: methIMAzole 10 MG TABLET PO (08:58)
[2017-10-10] MEDS: FAMOTIDINE 20 MG TABLET. PO ×2 (08:58→21:26)
[2017-10-10] MEDS: FLUCONAZOLE 100 MG TABLET. PO (08:59)
[2017-10-10] MEDS: predniSONE 20 MG TABLET PO (09:00)
[2017-10-10] MEDS: CARVEDILOL 3.125 MG TABLET. PO ×2 (09:01→16:47)
[2017-10-10] MEDS: DULoxetine HCL 30 MG CAPSULE.DR PO (09:01)
[2017-10-10] MEDS: TAMSULOSIN 0.4 MG CAP.ER.24H. PO (09:02)
[2017-10-10] MEDS: GABAPENTIN 100 MG CAPSULE. PO ×3 (09:02→21:26)
[2017-10-10] MEDS: IPRATRPIUM/ALBUTEROL 0.5/2.5MG 3 ML NEBU. NEB ×4 (09:04→19:42)
[2017-10-10] MEDS: BUDESONIDE 0.5 MG/2 ML NEBU. NEB ×2 (09:04→19:42)
[2017-10-10] MEDS: LACTOBACILLUS RHAMNOSUS GG 1 CAPSULE. PO ×2 (10:25→21:26)
[2017-10-10] MEDS: AMOXICILLIN/K CLAV 875/125MG TABLET. PO ×2 (15:15→21:26)
[2017-10-10] MEDS: ENOXAPARIN 40 MG/0.4 ML SYRINGE. SQ (16:47)
[2017-10-11 04:27] LABS: ADD MAN DIFF? NO
[2017-10-11 05:18] LABS: BASO % 0 % (0-3); EOS % 0 % (0-3); HEMATOCRIT 34.4 % (39.0-53.0); HEMOGLOBIN 11.7 g/dL (13.0-17.5); LYMPH # 1.7 x10^3/uL (1.0-4.8); LYMPH % 8 % (24-48); MEAN CORPUSCULAR HEMOGLOBIN 30 pg (25-35); MEAN CORPUSCULAR HGB CONC 34 g/dL (31-37); MEAN CORPUSCULAR VOLUME 89 fL (79-100); MONO # 1.2 x10^3/uL (0.0-1.1); MONO % 6 % (0-9); NEUT # 17.2 x10^3uL (1.8-7.7); NEUT % 86 % (31-73); PLATELET COUNT 427 x10^3/uL (140-400); RED BLOOD COUNT 3.87 x10^6/uL (4.30-5.70); RED CELL DISTRIBUTION WIDTH 14.5 % (11.5-14.5); WHITE BLOOD COUNT 20.1 x10^3/uL (4.0-11.0)
[2017-10-11 05:27] LABS: ALBUMIN 2.2 g/dL (3.4-5.0); ALBUMIN/GLOBULIN RATIO 0.6 (1.0-1.7); ALK PHOS 94 U/L (46-116); ALT (SGPT) 57 U/L (16-63); AST (SGOT) 35 U/L (15-37); BLOOD UREA NITROGEN 20 mg/dL (8-26); BUN/CREATININE RATIO 29 (6-20); CALCIUM 8.7 mg/dL (8.5-10.1); CARBON DIOXIDE 31 mmol/L (21-32); CHLORIDE 95 mmol/L (98-107); CREATININE 0.7 mg/dL (0.7-1.3); GFR 109.6; GLUCOSE 125 mg/dL (70-99); TOTAL BILIRUBIN 0.5 mg/dL (0.2-1.0); TOTAL PROTEIN 5.8 g/dL (6.4-8.2)
[2017-10-11 05:51] LABS: ANION GAP 2 (6-14); POTASSIUM 5.5 mmol/L (3.5-5.1); SODIUM 128 mmol/L (136-145)
[2017-10-11] MEDS: HYDROcodone/APAP 5/325MG 1 TAB TABLET PO ×3 (07:26→19:59)
[2017-10-11] MEDS: BUDESONIDE 0.5 MG/2 ML NEBU. NEB ×2 (08:11→19:35)
[2017-10-11] MEDS: IPRATRPIUM/ALBUTEROL 0.5/2.5MG 3 ML NEBU. NEB ×4 (08:11→19:35)
[2017-10-11] MEDS: LACTOBACILLUS RHAMNOSUS GG 1 CAPSULE. PO ×2 (08:27→19:58)
[2017-10-11] MEDS: methIMAzole 10 MG TABLET PO (08:27)
[2017-10-11] MEDS: FAMOTIDINE 20 MG TABLET. PO ×2 (08:28→19:58)
[2017-10-11] MEDS: AMOXICILLIN/K CLAV 875/125MG TABLET. PO ×2 (08:28→19:57)
[2017-10-11] MEDS: TAMSULOSIN 0.4 MG CAP.ER.24H. PO (08:28)
[2017-10-11] MEDS: predniSONE 20 MG TABLET PO (08:28)
[2017-10-11] MEDS: GABAPENTIN 100 MG CAPSULE. PO ×3 (08:28→19:58)
[2017-10-11] MEDS: FLUCONAZOLE 100 MG TABLET. PO (08:28)
[2017-10-11] MEDS: DULoxetine HCL 30 MG CAPSULE.DR PO (08:28)
[2017-10-11] MEDS: CARVEDILOL 3.125 MG TABLET. PO ×2 (08:29→16:53)
[2017-10-11] MEDS: METHYL SALICYLATE/MENTHOL TOPICAL OINTMENT 29GM TUBE. TP ×2 (12:04→17:58)
[2017-10-11] MEDS: ENOXAPARIN 40 MG/0.4 ML SYRINGE. SQ (16:54)
[2017-10-12 06:37] LABS: ANION GAP 4 (6-14); BLOOD UREA NITROGEN 15 mg/dL (8-26); CALCIUM 8.3 mg/dL (8.5-10.1); CARBON DIOXIDE 31 mmol/L (21-32); CHLORIDE 94 mmol/L (98-107); CREATININE 0.7 mg/dL (0.7-1.3); GFR 109.6; GLUCOSE 136 mg/dL (70-99); POTASSIUM 4.9 mmol/L (3.5-5.1); SODIUM 129 mmol/L (136-145)
[2017-10-12] MEDS: BUDESONIDE 0.5 MG/2 ML NEBU. NEB ×2 (07:33→19:17)
[2017-10-12] MEDS: IPRATRPIUM/ALBUTEROL 0.5/2.5MG 3 ML NEBU. NEB ×4 (07:34→19:17)
[2017-10-12] MEDS: DULoxetine HCL 30 MG CAPSULE.DR PO (09:15)
[2017-10-12] MEDS: GABAPENTIN 100 MG CAPSULE. PO ×3 (09:15→22:09)
[2017-10-12] MEDS: FAMOTIDINE 20 MG TABLET. PO ×2 (09:15→22:08)
[2017-10-12] MEDS: methIMAzole 10 MG TABLET PO (09:16)
[2017-10-12] MEDS: LACTOBACILLUS RHAMNOSUS GG 1 CAPSULE. PO ×2 (09:16→22:09)
[2017-10-12] MEDS: FLUCONAZOLE 100 MG TABLET. PO (09:16)
[2017-10-12] MEDS: TAMSULOSIN 0.4 MG CAP.ER.24H. PO (09:17)
[2017-10-12] MEDS: predniSONE 20 MG TABLET PO (09:17)
[2017-10-12] MEDS: CARVEDILOL 3.125 MG TABLET. PO ×2 (09:17→16:42)
[2017-10-12] MEDS: HYDROcodone/APAP 5/325MG 1 TAB TABLET PO ×3 (09:21→22:09)
[2017-10-12] MEDS: ENOXAPARIN 40 MG/0.4 ML SYRINGE. SQ (15:29)
[2017-10-13] MEDS: HYDROcodone/APAP 5/325MG 1 TAB TABLET PO ×2 (06:21→14:53)
[2017-10-13] MEDS: IPRATRPIUM/ALBUTEROL 0.5/2.5MG 3 ML NEBU. NEB ×2 (07:23→11:15)
[2017-10-13] MEDS: BUDESONIDE 0.5 MG/2 ML NEBU. NEB (07:23)
[2017-10-13] MEDS: methIMAzole 10 MG TABLET PO (09:05)
[2017-10-13] MEDS: LACTOBACILLUS RHAMNOSUS GG 1 CAPSULE. PO (09:06)
[2017-10-13] MEDS: DULoxetine HCL 30 MG CAPSULE.DR PO (09:06)
[2017-10-13] MEDS: TAMSULOSIN 0.4 MG CAP.ER.24H. PO (09:06)
[2017-10-13] MEDS: GABAPENTIN 100 MG CAPSULE. PO ×2 (09:07→14:30)
[2017-10-13] MEDS: predniSONE 20 MG TABLET PO (09:07)
[2017-10-13] MEDS: FLUCONAZOLE 100 MG TABLET. PO (09:08)
[2017-10-13] MEDS: FAMOTIDINE 20 MG TABLET. PO (09:08)
[2017-10-13] MEDS: CARVEDILOL 3.125 MG TABLET. PO (09:10)
== END 2017-10-13 14:55 | disposition home health service (06) | DRG 853 ==
LOC: 2 SOUTH 10-08 15:58 → ER 18:24 → 1 WEST ICU 20:35
PROC: 5A09357 Assistance with Respiratory Ventilation, Less than 24 Consecutive Hours, Continuous Positive Airway Pressure (ICD-10-PCS; 2017-10-03)
PROC: 5A09357 Assistance with Respiratory Ventilation, Less than 24 Consecutive Hours, Continuous Positive Airway Pressure (ICD-10-PCS; 2017-10-04)
PROC: 0B9H8ZX Drainage of Lung Lingula, Via Natural or Artificial Opening Endoscopic, Diagnostic (ICD-10-PCS; principal; 2017-10-07)
PROC: 0W9B30Z Drainage of Left Pleural Cavity with Drainage Device, Percutaneous Approach (ICD-10-PCS; 2017-10-07)
PROC: 5A09357 Assistance with Respiratory Ventilation, Less than 24 Consecutive Hours, Continuous Positive Airway Pressure (ICD-10-PCS; 2017-10-09)
DX: A41.9 Sepsis, unspecified organism (principal); J18.1 Lobar pneumonia, unspecified organism; J96.21 Acute and chronic respiratory failure with hypoxia; R65.21 Severe sepsis with septic shock; I50.43 Acute on chronic combined systolic (congestive) and diastolic (congestive) heart failure; N17.9 Acute kidney failure, unspecified; I11.0 Hypertensive heart disease with heart failure; E87.2 Acidosis; E87.1 Hypo-osmolality and hyponatremia; J44.1 Chronic obstructive pulmonary disease with (acute) exacerbation; J44.0 Chronic obstructive pulmonary disease with (acute) lower respiratory infection; D64.9 Anemia, unspecified; F32.9 Major depressive disorder, single episode, unspecified; F41.9 Anxiety disorder, unspecified; M19.90 Unspecified osteoarthritis, unspecified site; M54.2 Cervicalgia; M54.9 Dorsalgia, unspecified; E05.90 Thyrotoxicosis, unspecified without thyrotoxic crisis or storm; E78.5 Hyperlipidemia, unspecified; F17.200 Nicotine dependence, unspecified, uncomplicated; G47.33 Obstructive sleep apnea (adult) (pediatric); I25.10 Atherosclerotic heart disease of native coronary artery without angina pectoris; I25.5 Ischemic cardiomyopathy; I48.91 Unspecified atrial fibrillation; I73.9 Peripheral vascular disease, unspecified; J61 Pneumoconiosis due to asbestos and other mineral fibers; M35.3 Polymyalgia rheumatica; M48.02 Spinal stenosis, cervical region; M79.7 Fibromyalgia; N40.0 Benign prostatic hyperplasia without lower urinary tract symptoms; Z82.3 Family history of stroke; Z82.49 Family history of ischemic heart disease and other diseases of the circulatory system; Z82.5 Family history of asthma and other chronic lower respiratory diseases; Z86.73 Personal history of transient ischemic attack (TIA), and cerebral infarction without residual deficits; Z95.810 Presence of automatic (implantable) cardiac defibrillator; Z95.1 Presence of aortocoronary bypass graft; Z99.81 Dependence on supplemental oxygen
CPT/HCPCS: 31622; 32557; 36415; 36600; 71045; 71250; 71260; 80048; 80053; 80307; 81001; 82274; 82805; 82945; 83605; 83615; 83880; 84145; 84157; 84439; 84443; 84484; 85007; 85025; 85027; 85610; 85730; 86738; 86850; 86900; 86901; 87040; 87070; 87071; 87075; 87102; 87186; 87205; 87449; 87641; 87804; 87804-59; 89050; 93005; 94618; 94640; 94660; 94760; 96361; 96365; 96368; 96375; 97110-GP; 97116-GP; 97161-GP; 97165-GO; 97530-GP; 99285; 99285-25; A4215; C1729; C1892; C1894; G0480; J1250; J1650; J1956; J2020; J2175; J2250; J2270; J2310; J2543; J2920; J3490; J7030; J7512; J7613; J7620; J7626; Q9967